=== PATIENT | female | born 1970 | race Caucasian/White ===

== ENCOUNTER 2017-07-19 19:38 | Emergency (ER) | payer OTHER ==
--- NOTE | 2017-07-19 21:00 | US ---
EXAMINATION TYPE: US venous doppler duplex LE RT DATE OF EXAM: 07/19/2017 8:48 PM COMPARISON: NONE CLINICAL HISTORY: Pain. Right calf pain SIDE PERFORMED: Right TECHNIQUE: The lower extremity deep venous system is examined utilizing real time linear array sonog anjali with graded compression, doppler sonography and color-flow sonography. VESSELS IMAGED: External Iliac Vein (EIV) Common Femoral Vein Deep Femoral Vein Greater Saphenous Vein * Femoral Vein Popliteal Vein Small Saphenous Vein * Proximal Calf Veins (* superficial vessels) Right Leg: Negative for DVT Grayscale, color doppler, spectral doppler imaging performed of the deep veins of the lower extremities. There is normal flow, compressibility, vascular waveforms. IMPRESSION: No evidence of deep venous tendinosis within the right lower extremity.
[2017-07-19 21:08] VITALS: BP 107/73; PULSE 66; RESP 16; TEMP 98.1
[2017-07-19] MEDS ORDERED: ACET/COD 300 MG/30 MG STARTER PACK 6 TAB BTL PO STA (21:30)
--- NOTE | 2017-07-19 21:30 | ED ---
Extremity Problem HPI - General Chief complaint: Extremity Problem,Nontraumatic Stated complaint: poss DVT Time Seen by Provider: 07/19/17 19:49 Source: patient Mode of arrival: ambulatory Limitations: no limitations - History of Present Illness Initial comments: 47-year-old female patient presents to emergency department today for evaluation of right calf erythema, tenderness, and swelling. Patient was seen at urgent care in [place] today and was diagnosed with cellulitis of the leg however the recommended she come here for rule out DVT. She states that they gave her an IM injection of an antibiotic and sent a prescription for antibiotics over to the pharmacy. Patient states that on Monday she was canoeing, when she got out of the canoe she did hit the inside of her right leg causing a bruise. She denies any open wound. Patient states that when she woke this morning the area of her leg had become red, very tender, and caused her significant pain throughout the day. Patient states that it is more swollen than the left leg. Patient states that she has taken ibuprofen without relief of pain. Patient denies any recent fever, chills, shortness breath, palpitations, chest pain, abdominal pain, nausea, vomiting, diarrhea, constipation, back pain, numbness, tingling, weakness, hematuria, headache, visual changes, or any other complaints. - Related Data Home Medications Medication Instructions Recorded Confirmed ALPRAZolam [Xanax] 0.5 mg PO TID PRN 07/19/17 07/19/17 Ibuprofen [Motrin] 800 mg PO TID PRN 07/19/17 07/19/17 Previous Rx's Medication Instructions Recorded Acetaminophen-Codeine 300-30mg 1 tab PO Q6H PRN #15 tablet 07/19/17 [Tylenol #3] Allergies Allergy/AdvReac Type Severity Reaction Status Date / Time Penicillins Allergy Unknown Verified 07/19/17 20:46 Childhood Review of Systems ROS Statement: Those systems with pertinent positive or pertinent negative responses have been documented in the HPI. ROS Other: All systems not noted in ROS Statement are negative. Past Medical History Past Medical History: Cancer Additional Past Medical History / Comment(s): melanoma cancer History of Any Multi-Drug Resistant Organisms: None Reported Past Surgical History: Hysterectomy Additional Past Surgical History / Comment(s): skin Past Psychological History: Anxiety Smoking Status: Current every day smoker Past Alcohol Use History: None Reported Past Drug Use History: None Reported General Exam Limitations: no limitations General appearance: alert, in no apparent distress Respiratory exam: Present: normal lung sounds bilaterally. Absent: respiratory distress, wheezes, rales, rhonchi, stridor Cardiovascular Exam: Present: regular rate, normal rhythm, normal heart sounds. Absent: systolic murmur, diastolic murmur, rubs, gallop, clicks Extremities exam: Present: full ROM, normal capillary refill, other (Right medial calf exhibits an area of erythema, warmth, central area of ecchymosis. Mild nonpitting edema. Skin otherwise is pink, warm, and dry. Cap refill less than 3 seconds. Post tibial and pedal pulses intact and equal bilaterally.). Absent: normal inspection, tenderness, pedal edema, joint swelling, calf tenderness Neurological exam: Present: alert, oriented X3, CN II-XII intact Psychiatric exam: Present: normal affect, normal mood Skin exam: Present: warm, dry, intact, normal color. Absent: rash Course Vital Signs 07/19/17 07/19/17 19:41 21:07 Temperature 97.9 F 98.1 F Pulse Rate 69 66 Respiratory 18 16 Rate Blood Pressure 134/81 107/73 O2 Sat by Pulse 98 98 Oximetry Medical Decision Making - Medical Decision Making 47 year-old female patient presented to emergency department today for rule out DVT to the right lower extremity. Patient was seen at urgent care earlier in the day and diagnosed with a right leg cellulitis however they were concerned she may also have a DVT. Ultrasound Doppler of the right lower eduction was performed and showed no acute DVT. Patient will be discharged home with a prescription for pain medication. She will be instructed to complete the antibiotic prescription sent to the pharmacy by the urgent care. Patient instructed to follow up with her primary care physician for recheck in 1-2 days. Patient instructed to return here immediately for any new, worsening, or concerning symptoms. Patient verbalizes understanding and agrees with this plan. - Radiology Data Radiology results: report reviewed, image reviewed US venous Doppler duplex of the right lower extremity is negative for DVT grayscale, color Doppler, spectral Doppler imaging performed of the deep pain to the lower extremities. There is normal flow, compressibility, and vascular waveforms. Impression by Dr. Ojeda shows no evidence of deep venous tendinosis within the right lower extremity. Disposition Clinical Impression: Cellulitis of right leg Disposition: HOME SELF-CARE Condition: Good Instructions: Cellulitis (ED) Additional Instructions: Complete antibiotic prescription in full. Cool compresses to right leg. Keep leg elevated. Follow up with primary care physician for recheck in 1-2 days. Return immediately for any new, worsening, or concerning symptoms. Prescriptions: Acetaminophen-Codeine 300-30mg [Tylenol #3] 1 tab PO Q6H PRN #15 tablet PRN Reason: Pain Referrals: Tre Sosa DO [Primary Care Provider] - 1-2 days Time of Disposition: 21:30
== END 2017-07-19 21:54 | disposition home or self-care (01) ==
LOC: EC 19:38
DX: L03.115 Cellulitis of right lower limb (principal); F17.200 Nicotine dependence, unspecified, uncomplicated; Z88.0 Allergy status to penicillin
CPT/HCPCS: 99283

== ENCOUNTER 2018-01-10 20:38 | Emergency (ER) | payer OTHER ==
[2018-01-10 20:48] VITALS: RESP 18; TEMP 97.1
[2018-01-10 22:02] VITALS: PULSE 75
[2018-01-10] MEDS ORDERED: SODIUM CHLORIDE 0.9% 500 ML IV STA (22:22)
[2018-01-10] MEDS ORDERED: SODIUM CHLORIDE 0.9% 1,000 ML IV STA (22:22)
--- NOTE | 2018-01-10 22:28 | ED ---
General Adult HPI - General Chief complaint: Syncope Stated complaint: Unresponsive Time Seen by Provider: 01/10/18 22:15 Source: patient, family, EMS, RN notes reviewed Mode of arrival: EMS Limitations: no limitations - History of Present Illness Initial comments: Patient is a pleasant 47-year-old female presenting to the emergency department following an unresponsive episode. Episode occurred prior to arrival. Patient was found by family at home unresponsive. Patient appeared to have stopped breathing on a few occasions. Family did attempt CPR. When EMS arrived they did find a pulse. Patient had agonal respirations and was provided bag mask respirations. Patient then became arousable. Patient states she feels fine at this time denies any complaints. Patient has been depressed and has not ate much in the past 6 days. Patient has been drinking fluids. Patient does not normally drink much alcohol however today he did have 2 mixed drinks and 3 shots of tequila. Patient does not feel intoxicated at this time. Patient took her usual Xanax dose however no more than this. Patient denies suicidal thoughts. Patient denies this being a suicide attempt. - Related Data Home Medications Medication Instructions Recorded Confirmed ALPRAZolam [Xanax] 0.5 mg PO BID PRN 07/19/17 01/10/18 Ibuprofen [Motrin] 800 mg PO TID PRN 07/19/17 01/10/18 Venlafaxine HCl ER [Effexor Xr] 37.5 mg PO DAILY 01/10/18 01/10/18 Allergies Allergy/AdvReac Type Severity Reaction Status Date / Time Penicillins Allergy Unknown Verified 01/10/18 22:19 Childhood sulfamethoxazole Allergy Unknown Verified 01/10/18 22:19 [From Bactrim] trimethoprim [From Bactrim] Allergy Unknown Verified 01/10/18 22:19 Review of Systems ROS Statement: Those systems with pertinent positive or pertinent negative responses have been documented in the HPI. ROS Other: All systems not noted in ROS Statement are negative. Constitutional: Denies: fever Eyes: Denies: eye pain ENT: Denies: ear pain Respiratory: Denies: cough Cardiovascular: Reports: chest pain (Patient states chest discomfort now and believes it was from family pushing on her chest) Endocrine: Denies: fatigue Gastrointestinal: Denies: abdominal pain Genitourinary: Denies: dysuria Musculoskeletal: Denies: back pain Skin: Denies: rash Neurological: Denies: weakness Psychiatric: Reports: depression. Denies: suicidal thoughts Past Medical History Past Medical History: Cancer Additional Past Medical History / Comment(s): melanoma cancer History of Any Multi-Drug Resistant Organisms: None Reported Past Surgical History: Hysterectomy Additional Past Surgical History / Comment(s): skin Past Psychological History: Anxiety Smoking Status: Current every day smoker Past Alcohol Use History: Rare Past Drug Use History: Marijuana General Exam Limitations: no limitations General appearance: alert, in no apparent distress Head exam: Present: atraumatic Eye exam: Present: normal appearance, PERRL, EOMI. Absent: nystagmus ENT exam: Present: normal oropharynx Neck exam: Present: normal inspection Respiratory exam: Present: normal lung sounds bilaterally, chest wall tenderness Cardiovascular Exam: Present: regular rate, normal rhythm Expanded Peripheral pulses: 2+: Radial (R), Radial (L), Posterior Tibialis (R), Posterior Tibialis (L) GI/Abdominal exam: Present: soft. Absent: distended, tenderness Extremities exam: Present: normal inspection. Absent: pedal edema, calf tenderness Neurological exam: Present: alert, oriented X3, CN II-XII intact. Absent: motor sensory deficit Psychiatric exam: Present: normal affect, normal mood Skin exam: Present: normal color Course Vital Signs 01/10/18 01/10/18 01/10/18 20:41 22:01 23:17 Temperature 97.1 F L Pulse Rate 66 75 Respiratory 18 18 18 Rate Blood Pressure 116/76 133/63 108/53 O2 Sat by Pulse 97 95 Oximetry EKG Findings - EKG Comments: EKG Findings:: Normal sinus rhythm 67. MI 184. QRS 88. QT 418. QTC 441. Normal axis. Normal QRS. No acute ST change. Medical Decision Making - Medical Decision Making Patient reevaluated and resting comfortably in bed. Patient is alert and appropriate. Patient and family is updated on results. Patient is advised admission for further evaluation regarding this episode. Patient is made aware that it is felt to be rare for alcohol intoxication to cause respiratory arrest , especially at her alcohol level. Despite this patient refuses admission and will leave AGAINST MEDICAL ADVICE. - Lab Data Result diagrams: 01/10/18 20:50 01/10/18 20:50 Lab Results 02/14/18 02/14/18 02/14/18 Range/Units 20:50 20:50 20:50 WBC 14.4 H (3.8-10.6) k/uL RBC 4.83 (3.80-5.40) m/uL Hgb 14.6 (11.4-16.0) gm/dL Hct 46.9 H (34.0-46.0) % MCV 97.2 (80.0-100.0) fL MCH 30.3 (25.0-35.0) pg MCHC 31.2 (31.0-37.0) g/dL RDW 12.4 (11.5-15.5) % Plt Count 341 (150-450) k/uL Neutrophils % 75 % Lymphocytes % 15 % Monocytes % 7 % Eosinophils % 2 % Basophils % 0 % Neutrophils # 10.8 H (1.3-7.7) k/uL Lymphocytes # 2.1 (1.0-4.8) k/uL Monocytes # 1.0 (0-1.0) k/uL Eosinophils # 0.2 (0-0.7) k/uL Basophils # 0.1 (0-0.2) k/uL PT (9.0-12.0) sec INR (<1.2) APTT (22.0-30.0) sec D-Dimer (<0.60) mg/L FEU Sodium 143 (137-145) mmol/L Potassium 4.0 (3.5-5.1) mmol/L Chloride 100 (98-107) mmol/L Carbon Dioxide 26 (22-30) mmol/L Anion Gap 17 mmol/L BUN 9 (7-17) mg/dL Creatinine 0.70 (0.52-1.04) mg/dL Est GFR (MDRD) Af Amer >60 (>60 ml/min/1.73 sqM) Est GFR (MDRD) Non-Af >60 (>60 ml/min/1.73 sqM) Glucose 97 (74-99) mg/dL Calcium 9.4 (8.4-10.2) mg/dL Magnesium 2.1 (1.6-2.3) mg/dL Total Bilirubin 0.6 (0.2-1.3) mg/dL AST 30 (14-36) U/L ALT 21 (9-52) U/L Alkaline Phosphatase 80 (38-126) U/L Total Creatine Kinase 91 (30-135) U/L CK-MB (CK-2) 1.0 (0.0-2.4) ng/mL CK-MB (CK-2) Rel Index 1.1 Troponin I <0.012 (0.000-0.034) ng/mL Total Protein 8.0 (6.3-8.2) g/dL Albumin 4.7 (3.5-5.0) g/dL Salicylates <1.0 mg/dL Acetaminophen <10.0 ug/mL Serum Alcohol 142 mg/dL 01/10/18 Range/Units 20:50 WBC (3.8-10.6) k/uL RBC (3.80-5.40) m/uL Hgb (11.4-16.0) gm/dL Hct (34.0-46.0) % MCV (80.0-100.0) fL MCH (25.0-35.0) pg MCHC (31.0-37.0) g/dL RDW (11.5-15.5) % Plt Count (150-450) k/uL Neutrophils % % Lymphocytes % % Monocytes % % Eosinophils % % Basophils % % Neutrophils # (1.3-7.7) k/uL Lymphocytes # (1.0-4.8) k/uL Monocytes # (0-1.0) k/uL Eosinophils # (0-0.7) k/uL Basophils # (0-0.2) k/uL PT 10.4 (9.0-12.0) sec INR 1.1 (<1.2) APTT 25.5 (22.0-30.0) sec D-Dimer 0.20 (<0.60) mg/L FEU Sodium (137-145) mmol/L Potassium (3.5-5.1) mmol/L Chloride (98-107) mmol/L Carbon Dioxide (22-30) mmol/L Anion Gap mmol/L BUN (7-17) mg/dL Creatinine (0.52-1.04) mg/dL Est GFR (MDRD) Af Amer (>60 ml/min/1.73 sqM) Est GFR (MDRD) Non-Af (>60 ml/min/1.73 sqM) Glucose (74-99) mg/dL Calcium (8.4-10.2) mg/dL Magnesium (1.6-2.3) mg/dL Total Bilirubin (0.2-1.3) mg/dL AST (14-36) U/L ALT (9-52) U/L Alkaline Phosphatase (38-126) U/L Total Creatine Kinase (30-135) U/L CK-MB (CK-2) (0.0-2.4) ng/mL CK-MB (CK-2) Rel Index Troponin I (0.000-0.034) ng/mL Total Protein (6.3-8.2) g/dL Albumin (3.5-5.0) g/dL Salicylates mg/dL Acetaminophen ug/mL Serum Alcohol mg/dL - Radiology Data Radiology results: report reviewed (Computed tomography scan shows no acute process.), image reviewed (Chest x-ray shows no acute process.) Disposition Clinical Impression: Alcoholic intoxication, Unresponsive episode, Respiratory arrest Disposition: Left Against Medical Advice Instructions: Alcohol Intoxication (ED), Depression (ED) Additional Instructions: Please follow-up to primary care physician in the next day or 2 for recheck. Please also consider follow-up with counselor. Discontinue alcohol use. Return for increased depression, suicidal thoughts, chest pain, unresponsiveness , difficulty breathing, weakness or confusion, worsening symptoms or other concerns. Referrals: Tre Sosa DO [Primary Care Provider] - 1-2 days Conner Garcia DO [Medical Doctor] - 1-2 days Time of Disposition: 23:52
[2018-01-10 22:36] LABS: Basophils # (A) 0.1 k/uL (0-0.2); Basophils % (A) 0 %; Eosinophils # (A) 0.2 k/uL (0-0.7); Eosinophils % (A) 2 %; HCT 46.9 % (34.0-46.0); HGB 14.6 gm/dL (11.4-16.0); Lymphocytes # (A) 2.1 k/uL (1.0-4.8); Lymphocytes % (A) 15 %; MCH 30.3 pg (25.0-35.0); MCHC 31.2 g/dL (31.0-37.0); MCV 97.2 fL (80.0-100.0); Mean Platelet Volume 7.8; Monocytes % (A) 7 %; Neutrophils # (A) 10.8 k/uL (1.3-7.7); Neutrophils % (A) 75 %; Platelet Count 341 k/uL (150-450); RBC 4.83 m/uL (3.80-5.40); RDW 12.4 % (11.5-15.5); WBC 14.4 k/uL (3.8-10.6)
[2018-01-10 22:49] LABS: D-Dimer 0.2 mg/L FEU (<0.60); INR 1.1 (<1.2); Partial Thromboplastin Time 25.5 sec (22.0-30.0); Prothrombin Time 10.4 sec (9.0-12.0)
--- NOTE | 2018-01-10 22:57 | CT ---
EXAMINATION TYPE: CT brain wo con DATE OF EXAM: 01/10/2018 COMPARISON: NONE HISTORY: Syncopal episode with possible injury CT DLP: 1072.3 mGycm. Automated Exposure Control for Dose Reduction was Utilized. TECHNIQUE: CT scan of the head is performed without contrast. FINDINGS: Ventricles of normal size. There is no mass effect nor midline shift. There is no sign of intracranial hemorrhage. The calvarium is intact. CONCLUSION: Negative CT scan of the brain.
[2018-01-10 22:58] LABS: ALT 21 U/L (9-52); AST 30 U/L (14-36); Acetaminophen <10.0 ug/mL; Albumin 4.7 g/dL (3.5-5.0); Alkaline Phosphatase 80 U/L (38-126); Anion Gap 17 mmol/L; Blood Urea Nitrogen 9 mg/dL (7-17); Calcium 9.4 mg/dL (8.4-10.2); Carbon Dioxide 26 mmol/L (22-30); Chloride 100 mmol/L (98-107); Glucose 97 mg/dL (74-99); Magnesium 2.1 mg/dL (1.6-2.3); Salicylate <1.0 mg/dL; Sodium 143 mmol/L (137-145); Total Bilirubin 0.6 mg/dL (0.2-1.3)
--- NOTE | 2018-01-10 22:58 | XR ---
EXAMINATION TYPE: XR chest 2V DATE OF EXAM: 01/10/2018 COMPARISON: NONE HISTORY: Syncope TECHNIQUE: Frontal and lateral views of the chest are obtained. FINDINGS: There is no heart failure nor confluent pneumonic infiltrate. Costophrenic angles are lashonda r. There are no hilar masses. Bony thorax is intact. IMPRESSION: Normal chest
[2018-01-10 23:02] LABS: Alcohol 142 mg/dL
[2018-01-10 23:03] LABS: Creatine Kinase 91 U/L (30-135)
[2018-01-10 23:15] LABS: Troponin I <0.012 ng/mL (0.000-0.034)
[2018-01-10 23:18] VITALS: BP 108/53
== END 2018-01-11 00:21 | disposition left against medical advice (07) ==
LOC: EC 20:38
DX: F10.129 Alcohol abuse with intoxication, unspecified (principal); R09.2 Respiratory arrest; R40.20 Unspecified coma; F41.9 Anxiety disorder, unspecified; F17.200 Nicotine dependence, unspecified, uncomplicated; Z85.820 Personal history of malignant melanoma of skin; Z79.899 Other long term (current) drug therapy; Z88.0 Allergy status to penicillin; Z88.2 Allergy status to sulfonamides
CPT/HCPCS: 36415; 70450; 71046; 80053; 80320; 82550; 82553; 83520; 83735; 84484; 85025; 85379; 85610; 85730; 93005; 96360; 99285

== ENCOUNTER → 2018-11-29 | Outpatient (CLI) | payer OTHER ==
--- NOTE | 2018-11-30 10:15 | MM ---
Reason for exam: screening (asymptomatic). Last mammogram was performed 10 years and 2 months ago. History: Patient has history of other cancer at age 25. Physical Findings: A clinical breast exam by your physician is recommended on an annual basis and results should be correlated with mammographic findings. MG 3D Screening Mammo W/Cad Bilateral CC and MLO view(s) were taken. Prior study comparison: August 16, 2016, mammogram, performed at [facility]. July 27, 2016, mammogram, performed at [facility]. September 18, 2008, bilateral digital screening mammogram. There are scattered fibroglandular densities. There is no discrete abnormality. No significant changes when compared with prior studies. ASSESSMENT: Negative, BI-RAD 1 RECOMMENDATION: Routine screening mammogram of both breasts in 1 year.
== END | disposition home or self-care (01) ==
LOC: RADMAMWWP 16:18
PROVIDERS: ATTEND Family Medicine
DX: Z12.31 Encounter for screening mammogram for malignant neoplasm of breast (principal)
CPT/HCPCS: 77063; 77067

== ENCOUNTER → 2019-06-18 | Outpatient (CLI) | payer OTHER ==
[2019-06-18 12:25] LABS: Appearance,Urine Cloudy (Clear); Bacteria,Urine Occasional /hpf; Bilirubin,Urine Negative (Negative); Blood,Urine Trace (Negative); Color,Urine Yellow; Glucose,Urine (UA) Negative (Negative); Ketones,Urine 2+ (Negative); Leukocyte Esterase,Urine Trace (Negative); Mucus,Urine Many /hpf; Nitrite,Urine Negative (Negative); PH, Urine 5.5 (5.0-8.0); Protein,Urine Trace (Negative); RBC,Urine 3 /hpf (0-5); Specific Gravity,Urine 1.028 (1.001-1.035); Squamous Epithelial Cell,Urine 21 /hpf (0-4)
[2019-06-18 12:34] LABS: Basophils # (A) 0.1 k/uL (0-0.2); Basophils % (A) 1 %; Eosinophils # (A) 0.1 k/uL (0-0.7); Eosinophils % (A) 0 %; HGB 15.8 gm/dL (11.4-16.0); Lymphocytes # (A) 1.7 k/uL (1.0-4.8); Lymphocytes % (A) 11 %; MCH 31.5 pg (25.0-35.0); MCHC 32.9 g/dL (31.0-37.0); MCV 95.5 fL (80.0-100.0); Mean Platelet Volume 7.3; Monocytes # (A) 0.7 k/uL (0-1.0); Monocytes % (A) 4 %; Neutrophils # (A) 13.6 k/uL (1.3-7.7); Neutrophils % (A) 83 %; Platelet Count 378 k/uL (150-450); RBC 5.03 m/uL (3.80-5.40); RDW 13.1 % (11.5-15.5); WBC 16.4 k/uL (3.8-10.6)
[2019-06-18 15:36] LABS: Vitamin D 25 Hydroxy 26.7 ng/mL (30.0-100.0)
[2019-06-18 16:05] LABS: African American GFR (CKD) 85.8 (60.0-200.0); Albumin 5.1 g/dL (3.80-4.90); Albumin/Globulin Ratio 2.32 (1.60-3.17); Anion Gap 10.3 mmol/L (4.00-12.00); BUN/Creat Ratio 18.89 Ratio (12.00-20.00); Calcium 10.4 mg/dL (8.7-10.3); Carbon Dioxide 27.7 mmol/L (21.6-31.8); Globulin 2.2 g/dL (1.6-3.3); Potassium 4.9 mmol/L (3.5-5.5); Total Protein 7.3 g/dL (6.2-8.2)
== END | disposition home or self-care (01) ==
LOC: LABWHC1 11:41
PROVIDERS: ATTEND Family Medicine
DX: R53.82 Chronic fatigue, unspecified (principal)
CPT/HCPCS: 36415; 80053; 81001; 82306; 82607; 84439; 84443; 85025

== ENCOUNTER → 2019-07-12 | Outpatient (CLI) | payer OTHER ==
[2019-07-12 17:13] LABS: Basophils # (A) 0.1 k/uL (0-0.2); Basophils % (A) 1 %; Eosinophils # (A) 0.2 k/uL (0-0.7); Eosinophils % (A) 2 %; HCT 44.4 % (34.0-46.0); HGB 14.4 gm/dL (11.4-16.0); Lymphocytes # (A) 2.2 k/uL (1.0-4.8); Lymphocytes % (A) 21 %; MCHC 32.3 g/dL (31.0-37.0); MCV 95.9 fL (80.0-100.0); Mean Platelet Volume 7.1; Monocytes # (A) 0.9 k/uL (0-1.0); Monocytes % (A) 9 %; Neutrophils # (A) 6.9 k/uL (1.3-7.7); Neutrophils % (A) 66 %; Platelet Count 312 k/uL (150-450); RBC 4.63 m/uL (3.80-5.40); WBC 10.5 k/uL (3.8-10.6)
[2019-07-12 23:10] LABS: Albumin 4.6 g/dL (3.80-4.90); Calcium 9.8 mg/dL (8.7-10.3)
== END | disposition home or self-care (01) ==
LOC: LABWHC1 16:33 → EDSTATUS 16:50
PROVIDERS: ATTEND Family Medicine
DX: R89.9 Unspecified abnormal finding in specimens from other organs, systems and tissues (principal); R82.90 Unspecified abnormal findings in urine
CPT/HCPCS: 36415; 82040; 82310; 85025; 87086

== ENCOUNTER 2020-10-31 15:32 | Emergency (ER) | payer OTHER ==
[2020-10-31 15:47] VITALS: PULSE 72; RESP 16; TEMP 98.6
[2020-10-31] MEDS ORDERED: IBUPROFEN 600 MG TAB PO STA (16:01)
[2020-10-31] MEDS ORDERED: ACETAMINOPHEN TAB 500 MG TAB PO STA (16:01)
--- NOTE | 2020-10-31 16:12 | ED ---
Lower Extremity Injury HPI - General Chief Complaint: Extremity Injury, Lower Stated Complaint: foot injury Time Seen by Provider: 10/31/20 15:54 Source: patient Mode of arrival: ambulatory Limitations: no limitations - History of Present Illness Initial Comments: 50-year-old female patient presents to the emergency department today for evaluation of pain to the dorsal aspect of the right foot. Patient states that she was cleaning, went to kick a toy and accidentally kicked a door. Patient states she's had pain and swelling to the area since. States it is very painful to bear weight. Denies numbness or tingling to the foot. Denies previous injury to the foot. Denies taking any medication for pain. Patient denies any headache, neck pain, back pain, chest pain, shortness of breath, dizziness, weakness, abdominal pain, nausea, vomiting, or difficulties with bowel movements or urination. - Related Data Home Medications Medication Instructions Recorded Confirmed ALPRAZolam [Xanax] 0.5 mg PO TID PRN 07/19/17 10/31/20 Ibuprofen [Motrin] 800 mg PO BID PRN 07/19/17 10/31/20 Allergies Allergy/AdvReac Type Severity Reaction Status Date / Time bee venom protein (honey bee) Allergy Anaphylaxis Verified 10/31/20 17:21 Penicillins Allergy Unknown Verified 10/31/20 17:21 Childhood sulfamethoxazole Allergy Unknown Verified 10/31/20 17:21 [From Bactrim] trimethoprim [From Bactrim] Allergy Unknown Verified 10/31/20 17:21 Review of Systems ROS Statement: Those systems with pertinent positive or pertinent negative responses have been documented in the HPI. ROS Other: All systems not noted in ROS Statement are negative. Past Medical History Past Medical History: Cancer Additional Past Medical History / Comment(s): melanoma cancer History of Any Multi-Drug Resistant Organisms: None Reported Past Surgical History: Hysterectomy Additional Past Surgical History / Comment(s): skin Past Psychological History: Anxiety Smoking Status: Current some day smoker Past Alcohol Use History: Rare Past Drug Use History: Marijuana General Exam Limitations: no limitations General appearance: alert, in no apparent distress, other (This is a well- developed, well-nourished adult female patient in no acute distress. Vital signs upon presentation are temperature 98.6F, pulse 72, respirations 16, blood pressure 133/95, pulse ox 98% on room air.) Respiratory exam: Present: normal lung sounds bilaterally. Absent: respiratory distress, wheezes, rales, rhonchi, stridor Cardiovascular Exam: Present: regular rate, normal rhythm, normal heart sounds. Absent: systolic murmur, diastolic murmur, rubs, gallop, clicks Extremities exam: Present: full ROM, normal capillary refill, other (There is soft tissue swelling and ecchymosis noted over the dorsal aspect of the foot over the proximal fourth and fifth metatarsals. Skin is otherwise pink, warm, dry. Cap refills less than 3 seconds. Pedal and posttibial pulses are 2+ and equal bilaterally.). Absent: normal inspection, tenderness, pedal edema, joint swelling, calf tenderness Neurological exam: Present: alert, oriented X3, CN II-XII intact Psychiatric exam: Present: normal affect, normal mood Skin exam: Present: warm, dry, intact, normal color. Absent: rash Course Vital Signs 10/31/20 10/31/20 15:43 18:13 Temperature 98.6 F 98.6 F Pulse Rate 72 72 Respiratory 16 16 Rate Blood Pressure 133/95 134/69 O2 Sat by Pulse 98 96 Oximetry Medical Decision Making - Medical Decision Making 50-year-old female patient presented to the emergency department today for evaluation of right foot pain after accidentally kicking a door. Physical examination did reveal soft tissue swelling, ecchymosis over the dorsal aspect of the foot especially over the third and fourth metatarsals. X-ray was obtained and was negative. Patient was unable to bear weight without significant discomfort so we did perform computed tomography scan of the foot which is also negative. Patient was placed in an Dylon wrap and a post op shoe. She will be discharged to follow-up with orthopedics for further evaluation of her symptoms aren't improved. She is instructed to follow-up with her primary care physician for recheck in 1-2 days. Return parameters were discussed in det ail. She verbalizes understanding and agrees with this plan. - Radiology Data Radiology results: report reviewed, image reviewed X-ray of the right foot was obtained report reviewed in its entirety. Impression by Dr. Hernandez shows negative right foot exam. No fracture seen. CT right foot was obtained. Report was reviewed in its entirety. Impression by Dr. Hernandez shows negative right foot computed tomography scan. No fracture. Disposition Clinical Impression: Contusion of right foot, Right foot injury Disposition: HOME SELF-CARE Condition: Good Instructions (If sedation given, give patient instructions): Foot Contusion (ED ) Additional Instructions: Rest, ice, elevate the foot. Take medication as needed for pain control. I'll with credentialing specialist if symptoms persist. Follow-up with her primary care physician for recheck in 1-2 days. Return to the emergency department immediately for any new, worsening, or concerning symptoms. Is patient prescribed a controlled substance at d/c from ED?: No Referrals: Tre Sosa DO [Primary Care Provider] - 1-2 days Otto Mckenna DO [Doctor of Osteopathic Medicine] - 1-2 days Time of Disposition: 17:45
--- NOTE | 2020-10-31 16:48 | XR ---
EXAMINATION TYPE: XR foot complete RT DATE OF EXAM: 10/31/2020 COMPARISON: NONE HISTORY: Foot pain TECHNIQUE: 3 views FINDINGS: Metatarsals appear intact. I see no fracture nor dislocation. The toes appear intact. IMPRESSION: Negative right foot exam. No fracture seen.
--- NOTE | 2020-10-31 17:43 | CT ---
EXAMINATION TYPE: CT foot RT wo con DATE OF EXAM: 10/31/2020 COMPARISON: None HISTORY: right foot pain and swellling following kicking injury CT DLP: 44.4 mGycm Automated exposure control for dose reduction was used. Images were obtained from the distal tibia to the bottom of the foot with no contrast. The metatarsals are intact. The toes appear intact. I see no bony destructive process. There is no ev idence of a soft tissue mass. Joint spaces are fairly normal. The hindfoot is intact. IMPRESSION: Negative right foot CT scan. No fracture.
[2020-10-31] MEDS ORDERED: ONDANSETRON 4 MG ODT STARTER PACK 2 TAB BTL PO STA (17:59)
[2020-10-31] MEDS ORDERED: ACET/COD 300 MG/30 MG STARTER PACK 6 TAB BTL PO STA (17:59)
[2020-10-31 18:16] VITALS: BP 134/69
== END 2020-10-31 18:18 | disposition home or self-care (01) ==
LOC: EC 15:32
DX: S90.31XA Contusion of right foot, initial encounter (principal); F17.200 Nicotine dependence, unspecified, uncomplicated; Z88.0 Allergy status to penicillin; Z88.1 Allergy status to other antibiotic agents; Z88.2 Allergy status to sulfonamides; Z91.030 Bee allergy status; Z85.820 Personal history of malignant melanoma of skin; W22.8XXA Striking against or struck by other objects, initial encounter
CPT/HCPCS: 73630; 73700; 99284; S0119

== ENCOUNTER → 2022-01-03 | Outpatient (CLI) | payer MEDICARE ==
[2022-01-03 14:35] LABS: HCT 41.8 % (37.2-46.3); HGB 13.3 g/dL (12.0-15.0); MCH 30.6 pg (27.0-32.0); MCHC 31.8 g/dL (32.0-37.0); MCV 96.3 fL (80.0-97.0); Mean Platelet Volume 10.5 fL (9.5-12.2); NRBC Per 100 WBC 0 /100 WBCS (0.0-0.0); Platelet Count 297 X 10*3/uL (140-440); RBC 4.34 X 10*6/uL (4.10-5.20); RDW 13.6 % (11.5-14.5); WBC 8.75 X 10*3/uL (4.50-10.00)
[2022-01-03 15:01] LABS: ALT 19 U/L (8-44); AST 17 U/L (13-35); African American GFR (CKD) 115.3 (60.0-200.0); Albumin 4.6 g/dL (3.8-4.9); Albumin/Globulin Ratio 2.09 (1.60-3.17); Alkaline Phosphatase 62 U/L (41-126); BUN/Creat Ratio 18.29 Ratio (12.00-20.00); Blood Urea Nitrogen 12.6 mg/dL (9.0-27.0); Calcium 9.4 mg/dL (8.7-10.3); Carbon Dioxide 25.2 mmol/L (20.0-27.5); Chloride 106 mmol/L (96-109); Globulin 2.2 g/dL (1.6-3.3); Glucose 101 mg/dL (70-110); Non-African American GFR(CKD) 99.4 (60.0-200.0); Potassium 4.5 mmol/L (3.5-5.5); Sodium 143 mmol/L (135-145); Total Protein 6.7 g/dL (6.2-8.2)
[2022-01-03 22:10] LABS: Valproic Acid (Depakene) <2.8 ug/mL (50.0-100.0)
== END | disposition home or self-care (01) ==
LOC: LABWHC1 09:40
PROVIDERS: ATTEND Psychiatry & Neurology Psychiatry
DX: Z51.81 Encounter for therapeutic drug level monitoring (principal)
CPT/HCPCS: 36415; 80053; 80164; 85027

== ENCOUNTER 2022-05-12 15:39 | Emergency (ER) | payer MEDICARE ==
[2022-05-12 16:51] VITALS: BP 108/70; PULSE 68; RESP 18; TEMP 98
--- NOTE | 2022-05-12 18:29 | XR ---
RESULT: HISTORY: injury due to heavy sign TECHNIQUE: 2 views of the right tibia and fibula. 3 views of the right ankle. 3 views of the right foot. COMPARISON: None. FINDINGS: There is no acute fracture or dislocation. The visualized joint spaces are preserved. IMPRESSION: No acute osseous abnormality of the right tibia, fibula, ankle or foot.
--- NOTE | 2022-05-12 18:43 | ED ---
Lower Extremity Injury HPI - General Chief Complaint: Extremity Injury, Lower Stated Complaint: Rt Foot Injury Time Seen by Provider: 05/12/22 17:25 Source: patient Mode of arrival: wheelchair Limitations: no limitations - History of Present Illness Initial Comments: Patient is a 52-year-old female who presents for evaluation of right lower extremity pain. Patient states she was leaving [facility] building today when a heavy sign landed on her right foot. Patient endorses pain on the top of her foot. She also has mild ankle and lower leg pain. Patient states she is able to walk without instability however does endorse pain in the top of her foot with walking. States she took ibuprofen before arrival which controlled her pain. No other concerns. - Related Data Home Medications Medication Instructions Recorded Confirmed ALPRAZolam [Xanax] 0.5 mg PO TID PRN 07/19/17 10/31/20 Ibuprofen [Motrin] 800 mg PO BID PRN 07/19/17 10/31/20 Allergies Allergy/AdvReac Type Severity Reaction Status Date / Time bee venom protein (honey bee) Allergy Anaphylaxis Verified 05/12/22 16:51 Penicillins Allergy Unknown Verified 05/12/22 16:51 Childhood sulfamethoxazole Allergy Unknown Verified 05/12/22 16:51 [From Bactrim] trimethoprim [From Bactrim] Allergy Unknown Verified 05/12/22 16:51 Review of Systems ROS Statement: Those systems with pertinent positive or pertinent negative responses have been documented in the HPI. ROS Other: All systems not noted in ROS Statement are negative. Past Medical History Past Medical History: Cancer Additional Past Medical History / Comment(s): melanoma cancer History of Any Multi-Drug Resistant Organisms: None Reported Past Surgical History: Hysterectomy Additional Past Surgical History / Comment(s): skin Past Psychological History: Anxiety Smoking Status: Current some day smoker Past Alcohol Use History: Rare Past Drug Use History: Marijuana General Exam Limitations: no limitations General appearance: alert, in no apparent distress Head exam: Present: atraumatic, normocephalic, normal inspection Eye exam: Present: normal appearance, PERRL, EOMI. Absent: scleral icterus, conjunctival injection, periorbital swelling Respiratory exam: Present: normal lung sounds bilaterally. Absent: respiratory distress, wheezes, rales, rhonchi, stridor Cardiovascular Exam: Present: regular rate, normal rhythm, normal heart sounds. Absent: systolic murmur, diastolic murmur, rubs, gallop, clicks GI/Abdominal exam: Present: soft, normal bowel sounds. Absent: distended, tenderness, guarding, rebound, rigid Extremities exam: Present: other (Swelling on top of right foot with tenderness to palpation) Neurological exam: Present: alert, oriented X3, CN II-XII intact Psychiatric exam: Present: normal affect, normal mood Skin exam: Present: warm, dry, intact, normal color. Absent: rash Course Vital Signs 05/12/22 16:48 Temperature 98.0 F Pulse Rate 68 Respiratory 18 Rate Blood Pressure 108/70 O2 Sat by Pulse 98 Oximetry Medical Decision Making - Medical Decision Making This is a 52-year-old female who presents for evaluation of right lower extremity injury. Thorough history and examination were performed. There is swelling on the top of the right foot. No erythema, ecchymosis, or obvious deformity is noted of the right lower leg, right ankle, and right foot. Neurovascularly intact. Full range of motion. Patient looks well. Pain is controlled with ibuprofen patient took before arrival. Right fibular area, right ankle, and right foot x-ray are negative for acute process. Results discussed with patient. RICE education provided in detail. The foot was wrapped in Dylon bandage for comfort and put in a boot. Patient does not have a primary care provider. I referred to orthopedic s pecialist and she is instructed to schedule an appointment in 1-2 weeks if symptoms do not improve. She verbalizes understanding and is agreeable to this plan. Dr. Bianchi is my attending. Disposition Clinical Impression: Right foot injury, Right foot pain, Right ankle pain, Right leg pain Disposition: HOME SELF-CARE Condition: Good Instructions (If sedation given, give patient instructions): Foot Contusion (ED) Additional Instructions: Rest, ice, and elevate the right foot as much as possible. If symptoms continue after 48 hours you may benefit from applying warm compress. You continue to use dylon wrapping for comfort if desired. Follow-up with orthopedic specialisr in one to 2 weeks if symptoms do not improve. Return to the emergency department if you experience new, concerning, or worsening symptoms. Is patient prescribed a controlled substance at d/c from ED?: No Referrals: None,Stated [Primary Care Provider] - 1-2 days Montana Robledo PAC [PHYSICIAN MIXING MACHINE ATTENDANT] - 1-2 days Time of Disposition: 18:43
== END 2022-05-12 19:11 | disposition home or self-care (01) ==
LOC: EC 15:39
DX: S99.921A Unspecified injury of right foot, initial encounter (principal); F17.200 Nicotine dependence, unspecified, uncomplicated; Z88.2 Allergy status to sulfonamides; Z88.8 Allergy status to other drugs, medicaments and biological substances; Z91.030 Bee allergy status; Z88.0 Allergy status to penicillin; W13.9XXA Fall from, out of or through building, not otherwise specified, initial encounter

== ENCOUNTER → 2022-10-26 | Outpatient (CLI) | payer MEDICARE, OTHER ==
--- NOTE | 2022-10-26 12:46 | MM ---
Reason for Exam: Screening (asymptomatic). Last mammogram was performed 3 year(s) and 10 month(s) ago. Patient History: Menarche at age 10. First Full-Term at age 20. Hysterectomy at age 32. Other cancer, age 25. Risk Values: Danita 5 year model risk: 1.0%. NCI Lifetime model risk: 7.5%. Prior Study Comparison: 07/27/2016 Screening Mammogram, [facility]. 08/16/2016 Screening Mammogram, [facility]. 11/29/2018 Bilateral Screening Mammogram, [facility]. Tissue Density: The breast tissue is heterogeneously dense. This may lower the sensitivity of mammography. Findings: Analyzed By CAD. There is no suspicious group of microcalcifications or new suspicious mass in either breast. Overall Assessment: Negative, BI-RAD 1 Management: Screening Mammogram of both breasts in 1 year. A clinical breast exam by your physician is recommended on an annual basis and results should be correlated with mammographic findings. Electronically signed and approved by: Crispin Duenas M.D. Radiologis
== END | disposition home or self-care (01) ==
LOC: RADMAMWWP 08:29
PROVIDERS: ATTEND Family Medicine
DX: Z12.31 Encounter for screening mammogram for malignant neoplasm of breast (principal)
CPT/HCPCS: 77063; 77067

== ENCOUNTER → 2022-12-07 | Outpatient (CLI) | payer MEDICARE, OTHER ==
--- NOTE | 2022-12-07 16:23 | CT ---
EXAMINATION TYPE: CT abdomen pelvis wo con DATE OF EXAM: 12/07/2022 COMPARISON: None INDICATION: HEMATURIA DLP: 324.3 mGycm, Automated exposure control for dose reduction was used. CONTRAST: 0 mL of Isovue 300. Study performed without Oral Contrast TECHNIQUE: Axial images were obtained from above the diaphragm to the pubic rami in the axial plane a t 5 mm thick sections. Reconstructed images are reviewed on the computer in the coronal plane. FINDINGS: Limited CT sections are obtained the lung bases. The lung bases are clear. CT ABDOMEN: Liver: Normal Spleen: Normal Pancreas: Normal Adrenal glands: The adrenal glands are normal. Gallbladder: Normal Kidneys: No masses are evident. No hydronephrosis is present. No cysts are present. Aorta: Normal Inferior vena cava: Normal. CT PELVIS: Loops of bowel within the abdomen and pelvis are normal. The study is without neural contrast street iting bowel evaluation. Appendix: There is a prior appendectomy. Urinary bladder: Normal. Genitourinary structures: Uterus and ovaries are not identified. Osseous structures: No suspicious lytic or sclerotic lesions. IMPRESSIONS: 1. No suspicious CT abnormality to account for hematuria
== END | disposition home or self-care (01) ==
LOC: RADCTMAIN 14:28
PROVIDERS: ATTEND Family Medicine
DX: R31.9 Hematuria, unspecified (principal)
CPT/HCPCS: 74176

== ENCOUNTER 2022-12-13 12:56 | Emergency (ER) | payer MEDICARE, OTHER ==
[2022-12-13] MEDS ORDERED: SODIUM CHLORIDE 0.9% 1,000 ML IV STA (13:47)
[2022-12-13] MEDS ORDERED: KETOROLAC 15 MG/ML 1 ML VIAL IVP STA ×2 (13:47→15:05)
[2022-12-13] MEDS ORDERED: ONDANSETRON 4 MG/2 ML VIAL IVP STA (13:47)
[2022-12-13 14:18] LABS: Basophils # (A) 0.1 k/uL (0-0.2); Basophils % (A) 1 %; Eosinophils # (A) 0.2 k/uL (0-0.7); Eosinophils % (A) 2 %; HCT 39.8 % (34.0-46.0); Lymphocytes # (A) 1.9 k/uL (1.0-4.8); Lymphocytes % (A) 19 %; MCH 30.3 pg (25.0-35.0); MCHC 32.7 g/dL (31.0-37.0); MCV 92.6 fL (80.0-100.0); Mean Platelet Volume 7.7; Monocytes # (A) 0.5 k/uL (0-1.0); Monocytes % (A) 5 %; Neutrophils # (A) 7.2 k/uL (1.3-7.7); Neutrophils % (A) 72 %; Platelet Count 330 k/uL (150-450); RDW 12.2 % (11.5-15.5)
[2022-12-13 14:29] LABS: INR 0.9 (<1.2); Partial Thromboplastin Time 25.1 sec (22.0-30.0); Prothrombin Time 9.9 sec (9.0-12.0)
[2022-12-13 14:40] LABS: ALT 23 U/L (4-34); AST 28 U/L (14-36); African American GFR (CKD) >90 (>60 ml/min/1.73 sqM); Albumin 4.4 g/dL (3.5-5.0); Alkaline Phosphatase 74 U/L (38-126); Amylase 53 U/L (30-110); Anion Gap 7 mmol/L; Blood Urea Nitrogen 9 mg/dL (7-17); C Reactive Protein <0.5 mg/dL (<1.0); Calcium 9.4 mg/dL (8.4-10.2); Carbon Dioxide 27 mmol/L (22-30); Chloride 107 mmol/L (98-107); Glucose 96 mg/dL (74-99); Lipase 101 U/L (23-300); Non-African American GFR(CKD) >90 (>60 ml/min/1.73 sqM); Potassium 4.3 mmol/L (3.5-5.1); Sodium 141 mmol/L (137-145); Total Bilirubin 0.6 mg/dL (0.2-1.3); Total Protein 6.9 g/dL (6.3-8.2)
--- NOTE | 2022-12-13 14:42 | CT ---
EXAMINATION TYPE: CT abdomen pelvis w con CT DLP: 779.3 mGycm, Automated exposure control for dose reduction was used. DATE OF EXAM: 12/13/2022 2:34 PM COMPARISON: CT abdomen pelvis most recent from 12/07/2022 . CLINICAL INDICATION:Female, 52 years old with history of Abdominal pain, acute, nonlocalized; abdomin al pain TECHNIQUE: Standard CT of the abdomen and pelvis following the administration of 100 cc of Isovue 3 00 IV contrast material. Coronal and sagittal reformats were performed. FINDINGS: LOWER CHEST: Unremarkable ABDOMEN LIVER: Unremarkable GALLBLADDER AND BILE DUCTS: Unremarkable. PANCREAS: Unremarkable. SPLEEN: Unremarkable. ADRENAL GLANDS: Unremarkable. KIDNEYS AND URETERS: No evidence of hydronephrosis or renal calculus. The kidneys enhance symmetrical ly. PELVIS BLADDER: Unremarkable REPRODUCTIVE: The uterus is surgically absent. ABDOMEN & PELVIS STOMACH AND BOWEL: Stomach and duodenum are unremarkable no focal wall thickening. The appendix is wi thin normal limits. No evidence of bowel obstruction. PERITONEUM: No evidence of pneumoperitoneum or free fluid. VASCULATURE: No evidence of aortic aneurysm. Multiple pelvic phleboliths. MUSCULOSKELETAL: No acute osseous abnormalities LYMPH NODES: No gross evidence for lymphadenopathy. SOFT TISSUE/ABDOMINAL WALL: Unremarkable IMPRESSION: No acute abdominal/pelvic process.
--- NOTE | 2022-12-13 14:46 | ED ---
Abdominal Pain HPI - General Chief Complaint: Abdominal Pain Stated Complaint: abd & back pain, blood in urine Time Seen by Provider: 12/13/22 13:32 Source: patient, RN notes reviewed Mode of arrival: ambulatory Limitations: no limitations - History of Present Illness Initial Comments: This is a 52-year-old female who presents to the emergency department for abdominal pain. States that this has been an ongoing issue for 1-2 weeks. She describes the pain as being in the bilateral mid to lower back, the epigastric region, and the bilateral lower quadrants. She initially had a urinary tract infection with hematuria, and was treated with antibiotics by her primary care provider. The hematuria improved, however she then began to develop flank pain and abdominal pain and she subsequently had a computed tomography scan of the abdomen and pelvis on 12/07. No irregularities were noted, including no kidney stones. States that her symptoms have continued to worsen and she is now having associated nausea and vomiting. Denies any changes in her bowel habits. Her largest concern is that her mother unexpectedly of cancer, and she is worried that this may be the case for her. She was sent over by her primary care provider, Dr. Anderson, for additional testing, such as a computed tomography scan with contrast. Denies any fevers, chills, sore throat, cough, dyspnea, chest pain, palpitations, diarrhea, or headaches. MD Complaint: abdominal pain Onset/Timin -: week(s) Location: diffuse, bilateral flank Associated Symptoms: nausea, vomiting - Related Data Home Medications Medication Instructions Recorded Confirmed ALPRAZolam [Xanax] 0.5 mg PO TID PRN 07/19/17 10/31/20 Ibuprofen [Motrin] 800 mg PO BID PRN 07/19/17 10/31/20 Previous Rx's Medication Instructions Recorded Ondansetron Odt [Zofran Odt] 4 mg PO Q8HR PRN #20 tab 12/13/22 Allergies Allergy/AdvReac Type Severity Reaction Status Date / Time bee venom protein (honey bee) Allergy Anaphylaxis Verified 12/13/22 13:12 Penicillins Allergy Unknown Verified 12/13/22 13:12 Childhood sulfamethoxazole Allergy Unknown Verified 12/13/22 13:12 [From Bactrim] trimethoprim [From Bactrim] Allergy Unknown Verified 12/13/22 13:12 Review of Systems ROS Statement: Those systems with pertinent positive or pertinent negative responses have been documented in the HPI. ROS Other: All systems not noted in ROS Statement are negative. Past Medical History Past Medical History: Cancer Additional Past Medical History / Comment(s): melanoma cancer History of Any Multi-Drug Resistant Organisms: None Reported Past Surgical History: Hysterectomy Additional Past Surgical History / Comment(s): skin Past Psychological History: Anxiety Smoking Status: Current some day smoker Past Alcohol Use History: Rare Past Drug Use History: Marijuana General Exam Limitations: no limitations General appearance: alert, in distress Head exam: Present: atraumatic, normocephalic, normal inspection Respiratory exam: Present: normal lung sounds bilaterally. Absent: respiratory distress, wheezes, rales, rhonchi, stridor Cardiovascular Exam: Present: regular rate, normal rhythm, normal heart sounds. Absent: systolic murmur, diastolic murmur, rubs, gallop, clicks GI/Abdominal exam: Present: soft, tenderness (diffuse), normal bowel sounds. Absent: distended Neurological exam: Present: alert, oriented X3, CN II-XII intact Psychiatric exam: Present: normal affect, normal mood Skin exam: Present: warm, dry, intact, normal color. Absent: rash Course Vital Signs 12/13/22 12/13/22 12/13/22 13:09 14:19 15:05 Temperature 97.8 F Pulse Rate 59 L 56 L 58 L Respiratory 16 16 16 Rate Blood Pressure 121/77 148/68 105/73 O2 Sat by Pulse 97 98 98 Oximetry 12/13/22 16:16 Temperature Pulse Rate 65 Respiratory 16 Rate Blood Pressure 148/94 O2 Sat by Pulse 98 Oximetry Medical Decision Making - Medical Decision Making This is a 52-year-old female who presents to the emergency department for abdominal pain. Was pt. sent in by a medical professional or institution? @ -Yes, Dr. Anderson. Did you speak to anyone other than the patient for history? @ -No Did you review nursing and triage notes? @ -Agree, accurate with regards to the patient's symptoms. Were old charts reviewed? @ -No Differential Diagnosis? @ -Differential Abdominal Pain Women: Appendicitis, Cholecystitis, diverticulosis, ischemic bowel, pancreatitis, hepatitis, UTI, gastroenteritis, AAA, incarcerated hernia, bowel obstruction, constipation, inflammatory bowel, hepatitis, peptic ulcer disease, splenic infarction, perforated viscus, vulvitis, ovarian torsion, PID, kidney stone, placenta abruption, this is not meant to be an all-inclusive list EKG interpreted by me (3pts min.)? @ -Sinus bradycardia, ventricular rate 52 beats per minute, VA interval 194 ms, QRS duration 88 ms, QTC [address] interpreted by me (1pt min.)? @ -Computed tomography scan of the abdomen and pelvis obtained. My interpretation identifies no evidence of any masses, bowel wall thickening, free air, or nephrolithiasis. What testing was considered but not performed? (CT, X-rays, U/S, labs)? Why? @ -None What meds were considered but not given? Why? @ -None Did you discuss the management of the patient with other professionals? @ -No Did you reconcile home meds? @ -No Was smoking cessation discussed for >3mins.? @ -No Was critical care preformed (if so, how long)? @ -No Were there social determinants of health that impacted care today? How? (Homelessness, low income, unemployed, alcoholism, drug addiction, transportation, low edu. Level, literacy, decrease access to med. care, intermediate, rehab)? @ -No Was there de-escalation of care discussed even if they declined? (Discuss DNR or withdrawal of care, Hospice)? @ -No What co-morbidities impacted this encounter? (DM, HTN, Smoking, COPD, CAD, Cancer, CVA, Hep., AIDS, mental health diagnosis, sleep apnea, morbid obesity)? @ -None Was patient admitted / discharged? @ -Discharged. Lab work obtained and found to be nonactionable. Computed tomography scan of the abdomen and pelvis also had no acute findings. I spoke with an individual with Dr. Anderson's office, who advised that no additional testing needed to be done at this time, they were primarily concerned about malignancy due to her strong family history. She was given Toradol and Ofirmev, with some improvement in symptoms. She qualified for Ofirmev due to the associated nausea and inability to keep anything down. States that as long as she does not move, her pain is well-controlled. However, when she tries to get up or move around, the pain then returns. Instructed her to alternate with ibuprofen and Tylenol for pain relief. She was given information for nephrology follow-up per her request. Instructed her to follow-up with her primary care provider tomorrow to discuss the next steps. Advised she discuss a nephrology follow-up with her primary care provider, because at this point we are not finding any specific evidence showing that her kidneys are the cause of her symptoms. Prescription for Zofran provided as well, advised she take this up to every 8 hours as needed for nausea and vomiting. Undiagnosed new problem with uncertain prognosis? @ -Abdominal pain Drug Therapy requiring intensive monitoring for toxicity (Heparin, Nitro, Insulin, Cardizem)? @ -None Were any procedures done? @ -None Diagnosis/symptom? @ -Abdominal pain Acute, or Chronic, or Acute on Chronic? @ -Acute Uncomplicated (without systemic symptoms) or Complicated (systemic symptoms)? @ -Complicated Side effects of treatment? @ -None Exacerbation, Progression, or Severe Exacerbation] @ -Not applicable Poses a threat to life or bodily function? @ -Yes, this is impacting her ability to function due to the severity of her symptoms. Diagnosis/symptom? @ -Flank pain Acute, or Chronic, or Acute on Chronic? @ -Acute Uncomplicated (without systemic symptoms) or Complicated (systemic symptoms)? @ -Complicated Side effects of treatment? @ -None Exacerbation, Progression, or Severe Exacerbation] @ -Not applicable Poses a threat to life or bodily function? @ -Yes, this is impacting her ability to function due to the severity of her symptoms. Return precautions reviewed in depth, the patient is instructed to return to the emergency department with any new, worsening, or concerning symptoms. Patient verbalized understanding. This case was discussed in detail with the attending ED physician, Dr. Powell. Presentation, findings, and treatment plan discussed in detail as well. - Lab Data Result diagrams: 12/13/22 14:00 12/13/22 14:00 Lab Results 12/13/22 12/13/22 12/13/22 Range/Units 14:00 14:00 14:00 WBC 10.0 (3.8-10.6) k/uL RBC 4.30 (3.80-5.40) m/uL Hgb 13.0 (11.4-16.0) gm/dL Hct 39.8 (34.0-46.0) % MCV 92.6 (80.0-100.0) fL MCH 30.3 (25.0-35.0) pg MCHC 32.7 (31.0-37.0) g/dL RDW 12.2 (11.5-15.5) % Plt Count 330 (150-450) k/uL MPV 7.7 Neutrophils % 72 % Lymphocytes % 19 % Monocytes % 5 % Eosinophils % 2 % Basophils % 1 % Neutrophils # 7.2 (1.3-7.7) k/uL Lymphocytes # 1.9 (1.0-4.8) k/uL Monocytes # 0.5 (0-1.0) k/uL Eosinophils # 0.2 (0-0.7) k/uL Basophils # 0.1 (0-0.2) k/uL ESR 2 (0-20) mm/hr PT 9.9 (9.0-12.0) sec INR 0.9 (<1.2) APTT 25.1 (22.0-30.0) sec Sodium 141 (137-145) mmol/L Potassium 4.3 (3.5-5.1) mmol/L Chloride 107 (98-107) mmol/L Carbon Dioxide 27 (22-30) mmol/L Anion Gap 7 mmol/L BUN 9 (7-17) mg/dL Creatinine 0.66 (0.52-1.04) mg/dL Est GFR (CKD-EPI)AfAm >90 (>60 ml/min/1.73 sqM) Est GFR (CKD-EPI)NonAf >90 (>60 ml/min/1.73 sqM) Glucose 96 (74-99) mg/dL Plasma Lactic Acid Anuj (0.7-2.0) mmol/L Calcium 9.4 (8.4-10.2) mg/dL Total Bilirubin 0.6 (0.2-1.3) mg/dL AST 28 (14-36) U/L ALT 23 (4-34) U/L Alkaline Phosphatase 74 (38-126) U/L Troponin I (0.000-0.034) ng/mL C-Reactive Protein <0.5 (<1.0) mg/dL Total Protein 6.9 (6.3-8.2) g/dL Albumin 4.4 (3.5-5.0) g/dL Amylase 53 (30-110) U/L Lipase 101 (23-300) U/L 01/17/23 01/17/23 Range/Units 14:00 14:00 WBC (3.8-10.6) k/uL RBC (3.80-5.40) m/uL Hgb (11.4-16.0) gm/dL Hct (34.0-46.0) % MCV (80.0-100.0) fL MCH (25.0-35.0) pg MCHC (31.0-37.0) g/dL RDW (11.5-15.5) % Plt Count (150-450) k/uL MPV Neutrophils % % Lymphocytes % % Monocytes % % Eosinophils % % Basophils % % Neutrophils # (1.3-7.7) k/uL Lymphocytes # (1.0-4.8) k/uL Monocytes # (0-1.0) k/uL Eosinophils # (0-0.7) k/uL Basophils # (0-0.2) k/uL ESR (0-20) mm/hr PT (9.0-12.0) sec INR (<1.2) APTT (22.0-30.0) sec Sodium (137-145) mmol/L Potassium (3.5-5.1) mmol/L Chloride (98-107) mmol/L Carbon Dioxide (22-30) mmol/L Anion Gap mmol/L BUN (7-17) mg/dL Creatinine (0.52-1.04) mg/dL Est GFR (CKD-EPI)AfAm (>60 ml/min/1.73 sqM) Est GFR (CKD-EPI)NonAf (>60 ml/min/1.73 sqM) Glucose (74-99) mg/dL Plasma Lactic Acid Anuj 0.7 (0.7-2.0) mmol/L Calcium (8.4-10.2) mg/dL Total Bilirubin (0.2-1.3) mg/dL AST (14-36) U/L ALT (4-34) U/L Alkaline Phosphatase (38-126) U/L Troponin I <0.012 (0.000-0.034) ng/mL C-Reactive Protein (<1.0) mg/dL Total Protein (6.3-8.2) g/dL Albumin (3.5-5.0) g/dL Amylase (30-110) U/L Lipase (23-300) U/L Disposition Clinical Impression: Abdominal pain, Flank pain Disposition: HOME SELF-CARE Instructions (If sedation given, give patient instructions): Abdominal Pain (ED), Flank Pain (ED) Additional Instructions: Return to the emergency department with any new, worsening, or concerning symptoms. Alternate with ibuprofen and Tylenol for pain relief. You can take the Zofran up to every 8 hours as needed for nausea and vomiting. Follow up with your primary care provider in 1-2 days. Prescriptions: Ondansetron Odt [Zofran Odt] 4 mg PO Q8HR PRN #20 tab PRN Reason: Nausea And Vomiting Is patient prescribed a controlled substance at d/c from ED?: No Referrals: Fabio Anderson MD [Primary Care Provider] - 1-2 days Mague Torres MD [STAFF PHYSICIAN] - 1-2 days
[2022-12-13] MEDS ORDERED: ACETAMINOPHEN IV (For NPO) 1,000 MG in EMPTY BAG 1 BAG IVPB STA (15:05)
[2022-12-13 15:24] LABS: Erythrocyte Sedimentation Rate 2 mm/hr (0-20)
[2022-12-13] MEDS ORDERED: ONDANSETRON 4 MG ODT STARTER PACK 2 TAB BTL PO STA (16:08)
[2022-12-13 16:53] LABS: Appearance,Urine Clear (Clear); Bilirubin,Urine Negative (Negative); Blood,Urine Negative (Negative); Color,Urine Yellow; Glucose,Urine (UA) Negative (Negative); Ketones,Urine 1+ (Negative); Leukocyte Esterase,Urine Negative (Negative); Nitrite,Urine Negative (Negative); Protein,Urine Trace (Negative); Specific Gravity,Urine >1.050 (1.001-1.035); Urobilinogen,Urine <2.0 mg/dL (<2.0)
[2022-12-13 17:10] VITALS: BP 109/68; PULSE 61; RESP 18; TEMP 97.6
== END 2022-12-13 17:10 | disposition home or self-care (01) ==
LOC: EC 12:56
DX: R10.13 Epigastric pain (principal); R10.31 Right lower quadrant pain; R10.32 Left lower quadrant pain; F17.200 Nicotine dependence, unspecified, uncomplicated; F12.90 Cannabis use, unspecified, uncomplicated; F41.9 Anxiety disorder, unspecified; Z88.2 Allergy status to sulfonamides; Z91.030 Bee allergy status; Z88.0 Allergy status to penicillin; Z88.1 Allergy status to other antibiotic agents; Z90.710 Acquired absence of both cervix and uterus; Z79.899 Other long term (current) drug therapy
CPT/HCPCS: 36415; 93005; 80053; 85652; 82150; 83605; 83690; 84484; 85025; 85610; 85730; 86140; 81003; 74177; 99284; 96374; 96375; 96361; J2405; J0131; J1885; S0119; Q9967

== ENCOUNTER 2022-12-20 11:10 | Inpatient (IN) | payer MEDICARE, OTHER ==
--- NOTE | 2022-12-20 11:12 | ED ---
General Adult HPI <Darlene Messer - Last Filed: 12/20/22 11:11> <Jacey Cueto - Last Filed: 12/25/22 02:23> - General Stated complaint: abd pain,distention Time Seen by Provider: 12/20/22 12:30 - History of Present Illness Initial comments: 52-year-old female presents to the emergency department for generalized abdominal pain since 11/30/2022. Was sent in by Dr. Esteban. (Darlene Messer) 52-year-old female presents to the emergency department reporting abdominal pain. States that it has been going on since the fourth of the month. She has been seen multiple times for similar complaint. Describes it as an epigastric pain without radiation. She has had multiple CAT scans, ultrasounds and laboratory testing. She was even at [facility] for evaluation. She presents today stating that she was told to come into the emergency department by Dr. Anderson. He wanted Dr. Esteban to evaluate the patient. Dr. Esteban has never seen the patient before but was agreeable to consult on the patient tomorrow. Patient adamant that she is a direct admit upon coming to the emergency department. (Jacey Cueto) - Related Data Home Medications Medication Instructions Recorded Confirmed ALPRAZolam [Xanax] 0.5 mg PO TID 07/19/17 12/20/22 Hyoscyamine Sulfate [Levsin-Sl] 0.125 mg SL QID PRN 12/20/22 12/20/22 Ketorolac [Toradol] 10 mg PO QID PRN 12/20/22 12/20/22 Metoclopramide [Reglan] 10 mg PO TID PRN 12/20/22 12/20/22 Sucralfate [Carafate] 1 gm PO ACHS 12/20/22 12/20/22 Previous Rx's Medication Instructions Recorded Acetaminophen Tab [Tylenol] 325 mg PO Q6HR PRN tab 12/23/22 Levofloxacin [Levaquin] 500 mg PO DAILY 1 Days #7 tab 12/23/22 Pantoprazole [Protonix] 40 mg PO BID #60 tab 12/23/22 metroNIDAZOLE [Flagyl] 500 mg PO TID #20 tab 12/23/22 Allergies Allergy/AdvReac Type Severity Reaction Status Date / Time bee venom protein (honey bee) Allergy Anaphylaxis Verified 12/20/22 13:25 codeine Allergy Rash/Hives/ Verified 12/20/22 13:25 Nausea loratadine [From Tavist ND] Allergy Rash/Hives Verified 12/20/22 13:25 Penicillins Allergy Anaphylaxis Verified 12/20/22 13:25 sulfamethoxazole Allergy Unknown Verified 12/20/22 13:25 [From Bactrim] trimethoprim [From Bactrim] Allergy Unknown Verified 12/20/22 13:25 Review of Systems ROS Other: All systems not noted in ROS Statement are negative. <Darlene Messer - Last Filed: 12/20/22 11:11> ROS Other: All systems not noted in ROS Statement are negative. <Jacey Cueto - Last Filed: 12/25/22 02:23> ROS Statement: Those systems with pertinent positive or pertinent negative responses have been documented in the HPI. Past Medical History Past Medical History: Cancer Additional Past Medical History / Comment(s): melanoma cancer History of Any Multi-Drug Resistant Organisms: None Reported Past Surgical History: Hysterectomy Additional Past Surgical History / Comment(s): skin Past Psychological History: Anxiety Smoking Status: Current some day smoker Past Alcohol Use History: Rare Past Drug Use History: Marijuana <AydeDarlene - Last Filed: 12/20/22 11:11> General Exam General appearance: alert, in no apparent distress Head exam: Present: atraumatic, normocephalic, normal inspection Eye exam: Present: normal appearance, PERRL, EOMI. Absent: scleral icterus, conjunctival injection, periorbital swelling ENT exam: Present: normal exam, mucous membranes moist Neck exam: Present: normal inspection. Absent: tenderness, meningismus, lymphadenopathy Respiratory exam: Present: normal lung sounds bilaterally. Absent: respiratory distress, wheezes, rales, rhonchi, stridor Cardiovascular Exam: Present: regular rate, normal rhythm, normal heart sounds. Absent: systolic murmur, diastolic murmur, rubs, gallop, clicks GI/Abdominal exam: Present: soft, tenderness (generalized), normal bowel sounds. Absent: distended, guarding, rebound, rigid Extremities exam: Present: normal inspection, full ROM, normal capillary refill. Absent: tenderness, pedal edema, joint swelling, calf tenderness Back exam: Present: normal inspection Neurological exam: Present: alert, oriented X3, CN II-XII intact Psychiatric exam: Present: normal affect, normal mood Skin exam: Present: warm, dry, intact, normal color. Absent: rash <Jacey Cueto - Last Filed: 12/25/22 02:23> Course Vital Signs 12/20/22 11:20 Temperature 98.7 F Pulse Rate 81 Respiratory 16 Rate Blood Pressure 115/66 O2 Sat by Pulse 97 Oximetry Medical Decision Making - Lab Data Result diagrams: 12/23/22 04:59 12/23/22 04:59 <Jacey Cueto - Last Filed: 12/25/22 02:23> - Medical Decision Making Was pt. sent in by a medical professional or institution (, PA, PATENT PROSECUTION ATTORNEY, urgent care, hospital, or custodial...) When possible be specific PCP Dr. Anderson Did you speak to anyone other than the patient for history (EMS, parent, family, police, friend...)? What history was obtained from this source Dr. Serna Did you review nursing and triage notes (agree or disagree)? Why? @ -[I reviewed and agree with nursing and triage notes] Were old charts reviewed (outside hosp., previous admission, EMS record, old EKG, old radiological studies, urgent care reports/EKG's, custodial records)? Report findings Previous ED visits reviewed Differential Diagnosis (chest pain, altered mental status, abdominal pain women, abdominal pain men, vaginal bleeding, weakness, fever, dyspnea, syncope, headache, dizziness, GI bleed, back pain, seizure, CVA, palpatations, mental hea lth)? MDM Differential Abdominal Pain Women: Appendicitis, Cholecystitis, diverticulosis, ischemic bowel, pancreatitis, hepatitis, UTI, gastroenteritis, AAA, incarcerated hernia, bowel obstruction, constipation, inflammatory bowel, hepatitis, peptic ulcer disease, splenic infarction, perforated viscus, vulvitis, ovarian torsion, PID, kidney stone, placenta abruption... This is not meant to be an all-inclusive list EKG interpreted by me (3pts min.). No X-rays interpreted by me (1pt min.). @ -[None done] CT interpreted by me (1pt min.). No U/S interpreted by me (1pt. min.). @ -[None done] What testing was considered but not performed or refused? (CT, X-rays, U/S, labs)? Why? ultrasound however patient refusing all imaging What meds were considered but not given or refused? Why? @ -[None] Did you discuss the management of the patient with other professionals (professionals i.e. , PA, PATENT PROSECUTION ATTORNEY, lab, RT, psych nurse, social media campaign manager, cook helper preserves, teacher, aoc plans intelligence officer chief, casework supervisor)? Give summary Admitting physician, dr serna Was smoking cessation discussed for >3mins.? @ -[No] Was critical care preformed (if so, how long)? @ -[No] Were there social determinants of health that impacted care today? How? (Homelessness, low income, unemployed, alcoholism, drug addiction, transportation, low edu. Level, literacy, decrease access to med. care, group home, rehab)? @ -[No] Was there de-escalation of care discussed even if they declined (Discuss DNR or withdrawal of care, Hospice)? DNR status @ -[No] What co-morbidities impacted this encounter? (DM, HTN, Smoking, COPD, CAD, Cancer, CVA, ARF, Chemo, Hep., AIDS, mental health diagnosis, sleep apnea, morbid obesity)? None Was patient admitted / discharged? Hospital course, mention meds given and route, prescriptions, significant lab abnormalities, going to OR and other pertinent info. On arrival patient was placed into room 27. History and physical exam was performed. I did review the patient's previous imaging studies. I did request laboratory studies for which the patient was eventually agreeable. Laboratory studies within normal limits. Did call and speak with Dr. Esteban. States that she would be willing to see the patient however she will not take the admission. I did call and speak With Dr. Hamlin who will admit the patient with Dr. Esteban on consult. Patient is requesting Dilaudid and Xanax by name. I did provide her with a dose of pain medications and she will be admitted for further workup. Undiagnosed new problem with uncertain prognosis? yes Drug Therapy requiring intensive monitoring for toxicity (Heparin, Nitro, Insulin, Cardizem)? @ -[No] Were any procedures done? @ -[No] Diagnosis/symptom? acute abd pain Acute, or Chronic, or Acute on Chronic? acute Uncomplicated (without systemic symptoms) or Complicated (systemic symptoms)? complicated Side effects of treatment? @ -[No] Exacerbation, Progression, or Severe Exacerbation? @ -[No] Poses a threat to life or bodily function? How? (Chest pain, [place], [place], pneumonia, PE, COPD, DKA, ARF, appy, cholecystitis, CVA, Diverticulitis, Homicidal, Suicidal, threat to staff... and all critical care pts) @ -[No] (Jacey Cueto) - Lab Data Lab Results 12/20/22 12/20/22 12/20/22 Range/Units 13:15 13:15 13:15 WBC 10.1 (3.8-10.6) k/uL RBC 3.89 (3.80-5.40) m/uL Hgb 12.1 (11.4-16.0) gm/dL Hct 36.8 (34.0-46.0) % MCV 94.7 (80.0-100.0) fL MCH 31.1 (25.0-35.0) pg MCHC 32.9 (31.0-37.0) g/dL RDW 12.7 (11.5-15.5) % Plt Count 331 (150-450) k/uL MPV 8.0 Immature Gran % (Auto) % Absolute Nucleated RBC (0.00-0.00) X 10*3/uL Neutrophils % 61 % Lymphocytes % 26 % Monocytes % 7 % Eosinophils % 2 % Basophils % 1 % Immature Gran # (0.00-0.04) X 10*3/uL Neutrophils # 6.2 (1.3-7.7) k/uL Lymphocytes # 2.7 (1.0-4.8) k/uL Monocytes # 0.7 (0-1.0) k/uL Eosinophils # 0.2 (0-0.7) k/uL Basophils # 0.1 (0-0.2) k/uL NRBC/100 WBC Diff (0.0-0.0) /100 WBCS PT (9.0-12.0) sec INR (<1.2) Sodium 142 (137-145) mmol/L Potassium 4.1 (3.5-5.1) mmol/L Chloride 107 (98-107) mmol/L Carbon Dioxide 33 H (22-30) mmol/L Anion Gap 2 mmol/L BUN 10 (7-17) mg/dL Creatinine 0.64 (0.52-1.04) mg/dL Est GFR (CKD-EPI)AfAm >90 (>60 ml/min/1.73 sqM) Est GFR (CKD-EPI)NonAf >90 (>60 ml/min/1.73 sqM) BUN/Creatinine Ratio (12.00-20.00) Ratio Glucose 81 (74-99) mg/dL POC Glucose (mg/dL) (70-110) mg/dL POC Glu [employer] Supervisor ID Plasma Lactic Acid Anuj (0.7-2.0) mmol/L Calcium 9.0 (8.4-10.2) mg/dL Total Bilirubin 0.4 (0.2-1.3) mg/dL AST 28 (14-36) U/L ALT 33 (4-34) U/L Alkaline Phosphatase 62 (38-126) U/L Total Protein 6.6 (6.3-8.2) g/dL Albumin 4.2 (3.5-5.0) g/dL Lipase 79 (23-300) U/L Urine Color Light Yellow Urine Appearance Clear (Clear) Urine pH 7.5 (5.0-8.0) Ur Specific [place] 1.006 (1.001-1.035) Urine Protein Negative (Negative) Urine Glucose (UA) Negative (Negative) Urine Ketones Negative (Negative) Urine Blood Negative (Negative) Urine Nitrite Negative (Negative) Urine Bilirubin Negative (Negative) Urine Urobilinogen <2.0 (<2.0) mg/dL Ur Leukocyte Esterase Negative (Negative) 12/20/22 12/20/22 12/21/22 Range/Units 13:15 13:15 05:48 WBC 9.02 (3.8-10.6) k/uL RBC 3.42 L (3.80-5.40) m/uL Hgb 10.6 L (11.4-16.0) gm/dL Hct 33.7 L (34.0-46.0) % MCV 98.5 H (80.0-100.0) fL MCH 31.0 (25.0-35.0) pg MCHC 31.5 L (31.0-37.0) g/dL RDW 14.0 (11.5-15.5) % Plt Count 293 (150-450) k/uL MPV 10.8 Immature Gran % (Auto) 0.4 % Absolute Nucleated RBC 0 (0.00-0.00) X 10*3/uL Neutrophils % 52.3 % Lymphocytes % 35.1 % Monocytes % 9.3 % Eosinophils % 2.1 % Basophils % 0.8 % Immature Gran # 0.04 (0.00-0.04) X 10*3/uL Neutrophils # 4.71 (1.3-7.7) k/uL Lymphocytes # 3.17 (1.0-4.8) k/uL Monocytes # 0.84 (0-1.0) k/uL Eosinophils # 0.19 (0-0.7) k/uL Basophils # 0.07 (0-0.2) k/uL NRBC/100 WBC Diff 0 (0.0-0.0) /100 WBCS PT 10.2 (9.0-12.0) sec INR 1.0 (<1.2) Sodium (137-145) mmol/L Potassium (3.5-5.1) mmol/L Chloride (98-107) mmol/L Carbon Dioxide (22-30) mmol/L Anion Gap mmol/L BUN (7-17) mg/dL Creatinine (0.52-1.04) mg/dL Est GFR (CKD-EPI)AfAm (>60 ml/min/1.73 sqM) Est GFR (CKD-EPI)NonAf (>60 ml/min/1.73 sqM) BUN/Creatinine Ratio (12.00-20.00) Ratio Glucose (74-99) mg/dL POC Glucose (mg/dL) (70-110) mg/dL POC Glu [employer] Supervisor ID Plasma Lactic Acid Anuj 0.5 L (0.7-2.0) mmol/L Calcium (8.4-10.2) mg/dL Total Bilirubin (0.2-1.3) mg/dL AST (14-36) U/L ALT (4-34) U/L Alkaline Phosphatase (38-126) U/L Total Protein (6.3-8.2) g/dL Albumin (3.5-5.0) g/dL Lipase (23-300) U/L Urine Color Urine Appearance (Clear) Urine pH (5.0-8.0) Ur Specific [place] (1.001-1.035) Urine Protein (Negative) Urine Glucose (UA) (Negative) Urine Ketones (Negative) Urine Blood (Negative) Urine Nitrite (Negative) Urine Bilirubin (Negative) Urine Urobilinogen (<2.0) mg/dL Ur Leukocyte Esterase (Negative) 12/21/22 12/21/22 Range/Units 05:48 06:39 WBC (3.8-10.6) k/uL RBC (3.80-5.40) m/uL Hgb (11.4-16.0) gm/dL Hct (34.0-46.0) % MCV (80.0-100.0) fL MCH (25.0-35.0) pg MCHC (31.0-37.0) g/dL RDW (11.5-15.5) % Plt Count (150-450) k/uL MPV Immature Gran % (Auto) % Absolute Nucleated RBC (0.00-0.00) X 10*3/uL Neutrophils % % Lymphocytes % % Monocytes % % Eosinophils % % Basophils % % Immature Gran # (0.00-0.04) X 10*3/uL Neutrophils # (1.3-7.7) k/uL Lymphocytes # (1.0-4.8) k/uL Monocytes # (0-1.0) k/uL Eosinophils # (0-0.7) k/uL Basophils # (0-0.2) k/uL NRBC/100 WBC Diff (0.0-0.0) /100 WBCS PT (9.0-12.0) sec INR (<1.2) Sodium 144 (137-145) mmol/L Potassium 4.4 (3.5-5.1) mmol/L Chloride 109 (98-107) mmol/L Carbon Dioxide 25.3 (22-30) mmol/L Anion Gap 9.20 L mmol/L BUN 7.8 L (7-17) mg/dL Creatinine 0.7 (0.52-1.04) mg/dL Est GFR (CKD-EPI)AfAm 113.9 (>60 ml/min/1.73 sqM) Est GFR (CKD-EPI)NonAf 98.3 (>60 ml/min/1.73 sqM) BUN/Creatinine Ratio 11.10 L (12.00-20.00) Ratio Glucose 96 (74-99) mg/dL POC Glucose (mg/dL) 116 H (70-110) mg/dL POC Glu [employer] Supervisor Conner Hawkins Plasma Lactic Acid Anuj (0.7-2.0) mmol/L Calcium 8.6 L (8.4-10.2) mg/dL Total Bilirubin (0.2-1.3) mg/dL AST (14-36) U/L ALT (4-34) U/L Alkaline Phosphatase (38-126) U/L Total Protein (6.3-8.2) g/dL Albumin (3.5-5.0) g/dL Lipase (23-300) U/L Urine Color Urine Appearance (Clear) Urine pH (5.0-8.0) Ur Specific [place] (1.001-1.035) Urine Protein (Negative) Urine Glucose (UA) (Negative) Urine Ketones (Negative) Urine Blood (Negative) Urine Nitrite (Negative) Urine Bilirubin (Negative) Urine Urobilinogen (<2.0) mg/dL Ur Leukocyte Esterase (Negative) Disposition <Darlene Messer - Last Filed: 12/20/22 11:11> Is patient prescribed a controlled substance at d/c from ED?: No Time of Disposition: 13:47 Decision to Admit Reason: Admit from EC Decision Date: 12/20/22 Decision Time: 13:47 <Jacey Cueto - Last Filed: 12/25/22 02:23> Clinical Impression: Abdominal pain Disposition: ADMITTED IP TO THIS HOSP Condition: Stable
[2022-12-20 13:24] LABS: Basophils # (A) 0.1 k/uL (0-0.2); Basophils % (A) 1 %; Eosinophils # (A) 0.2 k/uL (0-0.7); Eosinophils % (A) 2 %; HCT 36.8 % (34.0-46.0); HGB 12.1 gm/dL (11.4-16.0); Lymphocytes # (A) 2.7 k/uL (1.0-4.8); Lymphocytes % (A) 26 %; MCH 31.1 pg (25.0-35.0); MCHC 32.9 g/dL (31.0-37.0); MCV 94.7 fL (80.0-100.0); Monocytes # (A) 0.7 k/uL (0-1.0); Monocytes % (A) 7 %; Neutrophils # (A) 6.2 k/uL (1.3-7.7); Neutrophils % (A) 61 %; Platelet Count 331 k/uL (150-450); RBC 3.89 m/uL (3.80-5.40); RDW 12.7 % (11.5-15.5); WBC 10.1 k/uL (3.8-10.6)
[2022-12-20 13:35] LABS: ALT 33 U/L (4-34); AST 28 U/L (14-36); African American GFR (CKD) >90 (>60 ml/min/1.73 sqM); Albumin 4.2 g/dL (3.5-5.0); Alkaline Phosphatase 62 U/L (38-126); Anion Gap 2 mmol/L; Blood Urea Nitrogen 10 mg/dL (7-17); Carbon Dioxide 33 mmol/L (22-30); Chloride 107 mmol/L (98-107); Glucose 81 mg/dL (74-99); Lipase 79 U/L (23-300); Non-African American GFR(CKD) >90 (>60 ml/min/1.73 sqM); Potassium 4.1 mmol/L (3.5-5.1); Sodium 142 mmol/L (137-145); Total Bilirubin 0.4 mg/dL (0.2-1.3); Total Protein 6.6 g/dL (6.3-8.2)
[2022-12-20 13:36] LABS: Prothrombin Time 10.2 sec (9.0-12.0)
[2022-12-20 13:38] LABS: Appearance,Urine Clear (Clear); Bilirubin,Urine Negative (Negative); Blood,Urine Negative (Negative); Color,Urine Light Yellow; Glucose,Urine (UA) Negative (Negative); Ketones,Urine Negative (Negative); Leukocyte Esterase,Urine Negative (Negative); Nitrite,Urine Negative (Negative); PH, Urine 7.5 (5.0-8.0); Protein,Urine Negative (Negative); Specific Gravity,Urine 1.006 (1.001-1.035); Urobilinogen,Urine <2.0 mg/dL (<2.0)
[2022-12-20] MEDS ORDERED: HYDROmorphone 1 MG/ML 1 ML SYRINGE IVP STA (13:46)
[2022-12-20] MEDS ORDERED: NALOXONE 0.4 MG/ML 1 ML VIAL IV PRN (13:47)
[2022-12-20] MEDS: SODIUM CHLORIDE 0.9% 1,000 ML IV SCH (14:37)
[2022-12-20] MEDS: HEPARIN SODIUM,PORCINE/PF 5,000 UNIT/0.5 ML SYRINGE SQ SCH ×2 (16:01→23:18)
[2022-12-20] MEDS: PANTOPRAZOLE 40 MG/10 ML VIAL IVP SCH ×2 (16:02→19:44)
[2022-12-20] MEDS: ALPRAZolam 0.5 MG TAB PO SCH ×2 (16:02→20:49)
[2022-12-20] MEDS: SUCRALFATE 1 GM TAB PO SCH ×2 (16:02→20:49)
--- NOTE | 2022-12-20 17:58 | XR ---
EXAMINATION TYPE: XR abdomen 1V DATE OF EXAM: 12/20/2022 COMPARISON: CT abdomen pelvis 12/13/2022 HISTORY: Abdominal pain TECHNIQUE: Supine view of the abdomen was obtained with 2 radiographs. FINDINGS: Small bowel demonstrates no evidence for dilatation or air fluid levels. Gas and fecal material is seen in non-distended colon. No convincing evidence for pneumoperitoneum within limitations of a supine exam. No unusual calcifications. The lung bases are clear. The osseous structures are intact. IMPRESSION: Negative radiograph of the abdomen.
[2022-12-20] MEDS: HYDROmorphone 0.5 MG/0.5 ML SYRINGE IVP PRN ×2 (18:23→23:17)
[2022-12-20] MEDS ORDERED: ONDANSETRON 4 MG/2 ML VIAL IVP STA (20:57)
[2022-12-20] MEDS ORDERED: ONDANSETRON 4 MG in SODIUM CHLORIDE 0.9% 50 ML IVPB PRN (20:57)
[2022-12-20] MEDS ORDERED: ONDANSETRON 4 MG/2 ML VIAL IVP PRN (21:02)
--- NOTE | 2022-12-20 23:12 | P.HPIM ---
History of Present Illness H&P Date: 12/20/22 Chief Complaint: Abdominal pain Patient is a 52-year-old female with a known history of anxiety, melanoma, currently some day smoker presents to ER with complaints of abdominal pain. Patient was sent to the hospital by his primary care physician Dr. Anderson. Patient states that she started having abdominal pain since 11/30/2022. Patient was started having nausea and abdominal pain at the time and was found to have urinary tract infection. Patient was prescribed antibiotics, Bactrim and she took it for 5 days. Patient states that she was still having abdominal pain and was seen in the ER here on 12/13/2022. CT abdomen pelvis without contrast was done on 12/13/2022 showed no acute process. Patient was again seen at [facility] on 12/15/2022. Patient states that she had ultrasound of the abdomen at that time which showed no acute changes and was sen t home from ER. Patient today went to see her primary care physician and was still having abdominal pain mainly across the upper abdomen and was also saying it goes to all of the abdomen. Patient noticed distention of the abdomen as well. Dr. Anderson spoke with Dr. Salgado for surgical evaluation and was sent to ER. CT of the abdomen pelvis done on 12/13/2022 showed no acute process. Laboratory test showed WC 10.1 hemoglobin 12.1 and platelets 331 Sodium 142 potassium 4.1 chloride 107 bicarb is 33 BUN 10 and creatinine of 0.64 lactic acid 0.5 and liver enzymes are not elevated total bilirubin level is 0.4 AST 28 ALT 33 alk phos 62 albumin 4.1 lipase 79 Urinalysis is negative for infection. Review of Systems Constitutional: Patient denies any fever or chills . no Generalized weakness. Abdomen: Patient complains of abdominal pain mainly in the epigastric upper abdominal. Nausea also complains of distention. No diarrhea. Cardiovascular: Patient denies any chest pain or short of breath no palpitations. Respiratory: patient denied any cough . no sputum production. No shortness of breath Neurologic: Patient denied any numbness or tingling headache. Musculoskeletal: Patient denies any complaints of joint swelling or deformity. Skin: Negative Psychiatric: Negative Endocrine: No heat or cold intolerance. No recent weight gain. Genitourinary: No dysuria or hematuria. All other 14 point ROS negative except the above Past Medical History Past Medical History: Cancer Additional Past Medical History / Comment(s): melanoma cancer History of Any Multi-Drug Resistant Organisms: None Reported Past Surgical History: Hysterectomy Additional Past Surgical History / Comment(s): skin Past Psychological History: Anxiety Smoking Status: Current some day smoker Past Alcohol Use History: Rare Past Drug Use History: Marijuana Medications and Allergies Home Medications Medication Instructions Recorded Confirmed Type ALPRAZolam [Xanax] 0.5 mg PO TID 07/19/17 12/20/22 History Hyoscyamine Sulfate [Levsin-Sl] 0.125 mg SL QID PRN 12/20/22 12/20/22 History Ketorolac [Toradol] 10 mg PO QID PRN 12/20/22 12/20/22 History Metoclopramide [Reglan] 10 mg PO TID PRN 12/20/22 12/20/22 History Pantoprazole [Protonix] 40 mg PO DAILY 12/20/22 12/20/22 History Sucralfate [Carafate] 1 gm PO ACHS 12/20/22 12/20/22 History Allergies Allergy/AdvReac Type Severity Reaction Status Date / Time bee venom protein (honey bee) Allergy Anaphylaxis Verified 12/20/22 13:25 codeine Allergy Rash/Hives/ Verified 12/20/22 13:25 Nausea loratadine [From Tavist ND] Allergy Rash/Hives Verified 12/20/22 13:25 Penicillins Allergy Anaphylaxis Verified 12/20/22 13:25 sulfamethoxazole Allergy Unknown Verified 12/20/22 13:25 [From Bactrim] trimethoprim [From Bactrim] Allergy Unknown Verified 12/20/22 13:25 Physical Exam Vitals: Vital Signs Temp Pulse Resp BP Pulse Ox 12/20/22 11:20 98.7 F 81 16 115/66 97 Intake and Output 12/20/22 12/20/22 12/20/22 06:59 14:59 22:59 Other: Weight 76.657 kg PHYSICAL EXAMINATION: Patient is lying in the bed comfortably, no acute distress, awake alert and oriented.. HEENT: Normocephalic. Neck is supple. Pupils reactive. Nostrils clear. Oral cavity is moist. Neck reveals no JVD, carotid bruits, or thyromegaly. CHEST EXAMINATION: Trachea is central. Symmetrical expansion. Lung alejo clear to auscultation and percussion. CARDIAC: Normal S1, S2 with no gallops. No murmurs ABDOMEN: Soft. Bowel sounds present. Mild epigastric tenderness and right upper quadrant tenderness. No organomegaly. No abdominal bruits. Extremities: reveal no edema. No clubbing or cyanosis Neurologically awake, alert, oriented x3 with well-coordinated movements. No focal deficits noted Skin: No rash or skin lesions. Psychiatric: Coperative. Nonsuicidal, anxious. Musculoskeletal: No joint swelling or deformity. Normal range of motion. Results CBC & Chem 7: 12/21/22 05:48 12/21/22 05:48 Labs: Abnormal Lab Results - Last 24 Hours (Table) 12/20/22 12/20/22 Range/Units 13:15 13:15 Carbon Dioxide 33 H (22-30) mmol/L Plasma Lactic Acid Anuj 0.5 L (0.7-2.0) mmol/L Thrombosis Risk Factor Assmnt - DVT/VTE Prophylaxis DVT/VTE Prophylaxis: Pharmacologic Prophylaxis ordered Assessment and Plan Assessment: Abdominal pain mainly across the upper abdomen and also diffuse abdominal pain with mild distention. CT with contrast 12/13/2022 showed no acute process. Possible gastritis/peptic ulcer disease versus other abdominal etiology. Anxiety Currently some day smoker History of melanoma history of endometrial cancer Recent history of urinary tract infection with E. coli and was treated with Bactrim on 11/30/2022. DVT prophylaxis and GI prophylaxis Plan: Patient will be continued on IV hydration with normal saline and continue with clear liquid diet. Patient will be continued on Protonix IV push and sucralfate. Pain management with Dilaudid IV and follow-up closely. General surgery was consulted for further evaluation. Current with home medications and follow-up closely. Patient does take Toradol 10 mg 4 times daily as needed at home which is on hold. Time with Patient: Greater than 30
--- NOTE | 2022-12-20 23:20 | P.GSCN ---
History of Present Illness Consult date: 12/20/22 History of present illness: REASON FOR CONSULTATION: Abdominal pain HISTORY OF PRESENT ILLNESS: The patient is a 52 year old female admitted with 3 week history of generalized abdominal pain. Three weeks ago, she reports hematuria and was treated for a urinary tract infection. She had bilateral flank pain and presumed to have kidney infection. She was placed on antibiotics by her primary care doctor. She reported no improvement of her abdominal pain but her hematuria had resolved. Two weeks ago she was sent to have additional imaging for kidney stones and was unremarkable. She reports moderate to severe lower abdominal pain. She went to the emergency room at two different institutions at least two to three times. She was diagnosed with gastroesophageal reflux disease. She reports 20-pound unintentional weight gain with bilateral lower extremity swelling. She has personal history of melanoma of the left arm with resection over 3 years ago and endometrial cancer in the past. She does not follow up with an oncologist. She has not had a colonoscopy in over 5 years. She reports change in bowel habits with new abdominal distention. She reports her pain radiates from her epigastrium that radiates to the bilateral upper abdominal pain. Her pain radiates to her bilateral flank to her lower abdomen. General surgery is consulted for her abdominal pain. She reports discontinuing antibiotics over 1 week. PAST MEDICAL HISTORY: See list and reviewed PAST SURGICAL HISTORY: See list and reviewed MEDICATIONS: See list and reviewed ALLERGIES: See list and reviewed SOCIAL HISTORY: See list and reviewed. Retired nurse. FAMILY HISTORY: See list and reviewed REVIEW OF ORGAN SYSTEMS: CONSTITUTIONAL: No fevers or chills. Reports 20-pounds weight gain. EYES: Denies any trouble with vision. No glasses. HEENT: No difficulties with hearing. No nosebleeds. No difficulty swallowing. RESPIRATORY: Denies pneumonia. Denies any troubles with breathing or dyspnea on exertion. Has tobacco use. CARDIOVASCULAR: Denies any chest pain, palpitations, or recent heart attacks. GASTROINTESTINAL: Denies fatty food intolerance. Denies change in bowel habits and gas bloat. GENITOURINARY: Denies any blood in urine or increased urinary frequency. NEUROLOGICAL: Denies any numbness or tingling along the distal extremities. No seizure disorders or headaches. MUSCULOSKELETAL: Denies any back pain, stiffness or joint arthritis. SKIN: No current skin cancer. No rash. PSYCHIATRIC: Denies current depression or suicidal thoughts. Has anxiety. ENDOCRINE: Denies current thyroid disorders. Denies any blood sugar glucose intolerance. HEME/LYMPHATIC: Denies any lumps and bumps around the neck. No recent deep venous thrombosis. ALLERGY/IMMUNOLOGY: No immunoglobulin therapy. No immune deficiencies. BREAST: Denies current breast lumps, pain or nipple discharge. PHYSICAL EXAM: VITALS: Reviewed CONSTITUTIONAL: Well developed and in no acute distress. EYES: Conjuctivae without sclera icterus. Extraocular movements grossly intact. HEAD, EARS, NOSE, THROAT: Moist buccal mucosa. Head is atraumatic, normocephalic. Hears conversational speech. No nasal drainage. NECK: Supple. No JV distention. No thyroidomegaly. RESPIRATORY: Non-labored respirations and equal bilateral excursions. No gross wheezes. CARDIOVASCULAR: Palpable 2+ radial pulses. ABDOMEN: Distended. Tender epigastrium. No peritonitis. LYMPH: No neck lymphadenopathy. MUSCULOSKELETAL: Nail and fingers with good capillary refill. No clubbing or cyanosis, SKIN: Warm and well perfused with good skin turgor. NEUROLOGIC: Cranial nerves II through XII grossly intact. No focal or lateralizing signs. PSYCH: Appropriate affect. Alert and oriented to person, place and time. Displays appropriate insight. CLINCAL LABS: Reviewed. WBC normal. Hgb normal. LFTs normal. IMAGING: Independently reviewed. CT of the abdomen and pelvis from 12/07 demonstrated no kidney stones. No large or small bowel obstruction. This is my independent interpretation. CT abdomen and pelvis from 12/13 reviewed demonstrates no colitis. No small bowel obstruction or free air. This is my independent interpretation. RADIOLOGY: Report reviewed 12/07 no intra-abdominal masses for CT abdomen. Report 12/13 reviewed demonstrates no acute processes ASSESSMENT: 1. Abdominal pain, epigastric and upper abdomen. 2. Unintentional weight gain 3. Bilateral lower abdominal pain/flank pain 4. Personal history of endometrial cancer status post hysterectomy 5. Personal history of melanoma 6. Abdominal gas bloat PLAN: 1. Recommend upper endoscopy for gastroesophageal reflux disease and severe epigastric abdominal pain. 2. Recommend right upper quadrant abdominal ultrasound for gallbladder disorder and upper abdominal pain. 3. May benefit from referral to oncology for history of cancer melanoma and endometrial with acute clinical presentation 4. May benefit from colonoscopy due to change in bowel habits and lower abdominal pain. 5. May have clear liquid diet 6. Recommend tobacco cessation and counseling ADVANCE DIRECTIVE: Thank you for this kind consultation. Past Medical History Past Medical History: Cancer Additional Past Medical History / Comment(s): melanoma cancer History of Any Multi-Drug Resistant Organisms: None Reported Past Surgical History: Hysterectomy Additional Past Surgical History / Comment(s): skin Past Psychological History: Anxiety Smoking Status: Current some day smoker Past Alcohol Use History: Rare Past Drug Use History: Marijuana Medications and Allergies Home Medications Medication Instructions Recorded Confirmed Type ALPRAZolam [Xanax] 0.5 mg PO TID 07/19/17 12/20/22 History Hyoscyamine Sulfate [Levsin-Sl] 0.125 mg SL QID PRN 12/20/22 12/20/22 History Ketorolac [Toradol] 10 mg PO QID PRN 12/20/22 12/20/22 History Metoclopramide [Reglan] 10 mg PO TID PRN 12/20/22 12/20/22 History Pantoprazole [Protonix] 40 mg PO DAILY 12/20/22 12/20/22 History Sucralfate [Carafate] 1 gm PO ACHS 12/20/22 12/20/22 History Allergies Allergy/AdvReac Type Severity Reaction Status Date / Time bee venom protein (honey bee) Allergy Anaphylaxis Verified 12/20/22 13:25 codeine Allergy Rash/Hives/ Verified 12/20/22 13:25 Nausea loratadine [From Tavist ND] Allergy Rash/Hives Verified 12/20/22 13:25 Penicillins Allergy Anaphylaxis Verified 12/20/22 13:25 sulfamethoxazole Allergy Unknown Verified 12/20/22 13:25 [From Bactrim] trimethoprim [From Bactrim] Allergy Unknown Verified 12/20/22 13:25 Surgical - Exam Vital Signs Temp Pulse Resp BP Pulse Ox 98.7 F 81 16 115/66 97 12/20/22 11:20 12/20/22 11:20 12/20/22 11:20 12/20/22 11:20 12/20/22 11:20 Results - Labs 12/20/22 13:15 12/20/22 13:15 Abnormal Lab Results - Last 24 Hours (Table) 12/20/22 12/20/22 Range/Units 13:15 13:15 Carbon Dioxide 33 H (22-30) mmol/L Plasma Lactic Acid Anuj 0.5 L (0.7-2.0) mmol/L Diabetes panel 12/20/22 Range/Units 13:15 Sodium 142 (137-145) mmol/L Potassium 4.1 (3.5-5.1) mmol/L Chloride 107 (98-107) mmol/L Carbon Dioxide 33 H (22-30) mmol/L BUN 10 (7-17) mg/dL Creatinine 0.64 (0.52-1.04) mg/dL Glucose 81 (74-99) mg/dL Calcium 9.0 (8.4-10.2) mg/dL AST 28 (14-36) U/L ALT 33 (4-34) U/L Alkaline Phosphatase 62 (38-126) U/L Total Protein 6.6 (6.3-8.2) g/dL Albumin 4.2 (3.5-5.0) g/dL Calcium panel 12/20/22 Range/Units 13:15 Calcium 9.0 (8.4-10.2) mg/dL Albumin 4.2 (3.5-5.0) g/dL Pituitary panel 12/20/22 Range/Units 13:15 Sodium 142 (137-145) mmol/L Potassium 4.1 (3.5-5.1) mmol/L Chloride 107 (98-107) mmol/L Carbon Dioxide 33 H (22-30) mmol/L BUN 10 (7-17) mg/dL Creatinine 0.64 (0.52-1.04) mg/dL Glucose 81 (74-99) mg/dL Calcium 9.0 (8.4-10.2) mg/dL Adrenal panel 12/20/22 Range/Units 13:15 Sodium 142 (137-145) mmol/L Potassium 4.1 (3.5-5.1) mmol/L Chloride 107 (98-107) mmol/L Carbon Dioxide 33 H (22-30) mmol/L BUN 10 (7-17) mg/dL Creatinine 0.64 (0.52-1.04) mg/dL Glucose 81 (74-99) mg/dL Calcium 9.0 (8.4-10.2) mg/dL Total Bilirubin 0.4 (0.2-1.3) mg/dL AST 28 (14-36) U/L ALT 33 (4-34) U/L Alkaline Phosphatase 62 (38-126) U/L Total Protein 6.6 (6.3-8.2) g/dL Albumin 4.2 (3.5-5.0) g/dL
[2022-12-21] MEDS: HYDROmorphone 0.5 MG/0.5 ML SYRINGE IVP PRN (02:56)
[2022-12-21] MEDS: SODIUM CHLORIDE 0.9% 1,000 ML IV SCH ×2 (02:56→16:36)
[2022-12-21 06:40] LABS: Glucose,Whole Blood 116 mg/dL (70-110)
[2022-12-21] MEDS: ALPRAZolam 0.5 MG TAB PO SCH ×3 (08:58→16:35)
[2022-12-21] MEDS: PANTOPRAZOLE 40 MG/10 ML VIAL IVP SCH ×2 (08:58→10:41)
[2022-12-21] MEDS: SUCRALFATE 1 GM TAB PO SCH (08:58)
[2022-12-21] MEDS: HEPARIN SODIUM,PORCINE/PF 5,000 UNIT/0.5 ML SYRINGE SQ SCH ×3 (08:58→21:43)
--- NOTE | 2022-12-21 09:30 | US ---
EXAMINATION TYPE: US gallbladder DATE OF EXAM: 12/21/2022 COMPARISON: CT abdomen and pelvis 12/13/2022 CLINICAL HISTORY: Right upper quadrant abdominal pain. pain and vomiting TECHNIQUE: Multiple sonographic images of the right upper quadrant are obtained. FINDINGS: EXAM MEASUREMENTS: Liver Length: 17 cm Gallbladder Wall: 1.7 cm CBD: .4 cm Right Kidney: 9.5 x 3.5 x 4.8 cm PURCHASING EXPEDITOR NOTES: Pancreas: Obscured by bowel gas Liver: wnl Gallbladder: 9.6 cm Complex thickened wall 1.7 cm with pericholecystic fluid seen. No stones seen. Evidence for sonographic Celaya's sign: Yes CBD: wnl Right Kidney: No hydronephrosis or masses seen The pancreas is obscured due to overlying bowel gas. Underdistended gallbladder with complex thickene d wall and pericholecystic fluid. No shadowing gallstones identified. Per thread grinder tool, positive sonog raphic Celaya sign. The right kidney is unremarkable without evidence of hydronephrosis, nephrolithia sis, or contour deforming solid mass. IMPRESSION: Findings concerning for possible acalculous cholecystitis with complex thickened wall and pericholecy stic fluid with positive sonographic Celaya sign. Consider further evaluation nuclear medicine HIDA s can as clinically indicated.
[2022-12-21] MEDS ORDERED: IV FLUID CONTINUATION 1,000 ML IV ONE (09:35)
[2022-12-21] MEDS ORDERED: ONDANSETRON 4 MG/2 ML VIAL ONE (09:37)
[2022-12-21] MEDS ORDERED: PROPOFOL 10 MG/ML 20 ML VIAL IV ONE (09:37)
[2022-12-21] MEDS ORDERED: SODIUM CHLORIDE 0.9% 2,000 ML IV ONE (09:50)
--- NOTE | 2022-12-21 09:58 | P.PCN ---
Date of Procedure: 12/21/22 Description of Procedure: PREOPERATIVE DIAGNOSIS: Gastroesophageal reflux disease. Epigastric abdominal pain Intractable nausea and vomiting POSTOPERATIVE DIAGNOSIS: Diaphragmatic hiatal hernia without esophagitis OPERATION: Esophagogastroduodenoscopy with biopsies along antrum and duodenum SURGEON: Shira Salgado MD ANESTHESIA: MAC. INDICATIONS: The patient is a 52-year-old female who presents intractable nausea and vomiting, epigastric pain and reflux. Benefits and risks of the procedure were described. Informed consent was obtained. DESCRIPTION: The patient was brought into the endoscopy suite and laid in the left lateral decubitus position. An Olympus gastroscope was passed along the posterior oropharynx down to the distal esophagus where the squamocolumnar junction was encountered at 35 cm from the incisors. The stomach was entered and no bile reflux was found. Additional findings are listed below. Biopsies with cold forceps were obtained of the antrum. The first through third portion of the duodenum was examined. Retroflexion of the scope confirmed Hill grade 3 lower esophageal valve. The squamocolumnar junction demonstrated no LA grade A erosive esophagitis. The stomach was desufflated. The patient tolerated the procedure well. FINDINGS: Squamocolumnar junction 35 cm from the incisors. Diaphragmatic hiatus at 40 cm. Hiatal hernia, 5 cm Hill grade 3 lower esophageal valve. No LA grade A erosive esophagitis. Biopsies obtained of duodenum for celiac disease Biopsy obtained of the antrum RECOMMENDATIONS: Upper endoscopy as needed.
[2022-12-21] MEDS ORDERED: SCOPOLAMINE 1 MG/72 HR PATCH TRANSDERM SCH (10:00)
--- NOTE | 2022-12-21 10:08 | P.PN ---
Subjective Progress Note Date: 12/21/22 CHIEF COMPLAINT: Abdominal pain HISTORY OF PRESENT ILLNESS: The patient is a 52 year old female admitted with 3 week history of generalized abdominal pain. She reports in the past 1-2 weeks her pain is focal along the epigastrium moderate in severity radiating to her midback and bilateral upper abdomen. She completed ultrasound including upper endoscopy today. She presents with intractable nausea and vomiting. REVIEW OF ORGAN SYSTEMS: CONSTITUTIONAL: No fevers or chills. Reports 20-pounds weight gain, unintentional GASTROINTESTINAL: Has intractable nausea or vomiting. GENITOURINARY: Recent history of any tract infection with hematuria. History of endometrial cancer status post hysterectomy SKIN: History of melanoma treated 3 years ago. PHYSICAL EXAM: VITALS: Reviewed CONSTITUTIONAL: Well developed and in no acute distress. EYES: Conjuctivae without sclera icterus. Extraocular movements grossly intact. HEAD, EARS, NOSE, THROAT: Moist buccal mucosa. Head is atraumatic, normoce phalic. Hears conversational speech. No nasal drainage. RESPIRATORY: Non-labored respirations and equal bilateral excursions. No gross wheezes. CARDIOVASCULAR: Palpable 2+ radial pulses. ABDOMEN: Distended. Tender epigastrium. No peritonitis. MUSCULOSKELETAL: Nail and fingers with good capillary refill. No clubbing or cyanosis, SKIN: Warm and well perfused with good skin turgor. NEUROLOGIC: Cranial nerves II through XII grossly intact. No focal or lateralizing signs. PSYCH: Appropriate affect. Alert and oriented to person, place and time. Displays appropriate insight. CLINCAL LABS: Reviewed. IMAGING: Independently reviewed. Ultrasound of the gallbladder demonstrates thickened gallbladder wall with pericholecystic fluid. This is my independent interpretation. RADIOLOGY: Ultrasound gallbladder report demonstrates acute acalculous cholecystitis with pericholecystic fluid and positive Celaya sign. EGD REPORT: Upper endoscopy demonstrates hiatal hernia, no active bleeding for duodenal ulcers or gastric ulcers or erosive esophagitis ASSESSMENT: 1. Abdominal pain, epigastric and upper abdomen. 2. Unintentional weight gain 3. Bilateral lower abdominal pain/flank pain 4. Personal history of endometrial cancer status post hysterectomy 5. Personal history of melanoma 6. Abdominal gas bloat 7. Acute acalculous cholecystitis 8. Intractable nausea and vomiting due to dehydration PLAN: 1. Discontinue Protonix twice daily. Protonix once daily prescribed 2. Discontinue Carafate. 3. Scopolamine patch for intractable nausea and vomiting 4. IV fluid for dehydration 5. Robotic cholecystectomy described for acute acalculous cholecystitis 6. She is elevated risk due to acute comorbidities Objective - Vital Signs Vital signs: Vital Signs Temp 97.4 F L 12/21/22 07:05 Pulse 43 L 12/21/22 07:05 Resp 16 12/21/22 07:05 BP 118/79 12/21/22 07:05 Pulse Ox 100 12/21/22 07:05 FiO2 Intake & Output 12/20/22 12/21/22 12/21/22 18:59 06:59 18:59 Intake Total 240 1540 50 Balance 240 1540 50 Weight 76.657 kg Intake: IV 50 Intake, IV Titration 1000 Amount Sodium Chloride 0.9% 1, 1000 000 ml @ 75 mls/hr IV . [id number] [facility] Rx#:[id number] Oral 240 540 Other: Voiding Method Toilet - Labs CBC & Chem 7: 12/20/22 13:15 12/20/22 13:15 Labs: Abnormal Lab Results - Last 24 Hours (Table) 12/20/22 12/20/22 12/21/22 Range/Units 13:15 13:15 06:39 Carbon Dioxide 33 H (22-30) mmol/L POC Glucose (mg/dL) 116 H (70-110) mg/dL Plasma Lactic Acid Anuj 0.5 L (0.7-2.0) mmol/L
[2022-12-21 10:41] LABS: Basophils # (A) 0.07 X 10*3/uL (0.00-0.10); Basophils % (A) 0.8 %; Eosinophils # (A) 0.19 X 10*3/uL (0.04-0.35); Eosinophils % (A) 2.1 %; HCT 33.7 % (37.2-46.3); HGB 10.6 g/dL (12.0-15.0); Immature Grans, Automated 0.4 %; Lymphocytes # (A) 3.17 X 10*3/uL (0.90-5.00); Lymphocytes % (A) 35.1 %; MCHC 31.5 g/dL (32.0-37.0); MCV 98.5 fL (80.0-97.0); Mean Platelet Volume 10.8 fL (9.5-12.2); Monocytes # (A) 0.84 X 10*3/uL (0.20-1.00); Monocytes % (A) 9.3 %; NRBC Per 100 WBC 0 /100 WBCS (0.0-0.0); Neutrophils # (A) 4.71 X 10*3/uL (1.80-7.70); Neutrophils % (A) 52.3 %; Platelet Count 293 X 10*3/uL (140-440); RBC 3.42 X 10*6/uL (4.10-5.20); WBC 9.02 X 10*3/uL (4.50-10.00)
[2022-12-21] MEDS: ACETAMINOPHEN TAB 325 MG TAB PO PRN (10:45)
[2022-12-21 11:07] LABS: African American GFR (CKD) 113.9 (60.0-200.0); Anion Gap 9.2 mmol/L (10.00-18.00); BUN/Creat Ratio 11.1 Ratio (12.00-20.00); Blood Urea Nitrogen 7.8 mg/dL (9.0-27.0); Calcium 8.6 mg/dL (8.7-10.3); Carbon Dioxide 25.3 mmol/L (20.0-27.5); Non-African American GFR(CKD) 98.3 (60.0-200.0); Potassium 4.4 mmol/L (3.5-5.5)
[2022-12-21] MEDS: ONDANSETRON 4 MG/2 ML VIAL IVP SCH ×2 (13:07→17:48)
--- NOTE | 2022-12-21 14:11 | P.PN ---
Subjective Progress Note Date: 12/21/22 Patient is a 52-year-old female with a known history of anxiety, melanoma, currently some day smoker presents to ER with complaints of abdominal pain. Patient was sent to the hospital by his primary care physician Dr. Anderson. Patient states that she started having abdominal pain since 11/30/2022. Patient was started having nausea and abdominal pain at the time and was found to have urinary tract infection. Patient was prescribed antibiotics, Bactrim and she took it for 5 days. Patient states that she was still having abdominal pain and was seen in the ER here on 12/13/2022. CT abdomen pelvis without contrast was done on 12/13/2022 showed no acute process. Patient was again seen at [facility] on 12/15/2022. Patient states that she had ultrasound of the abdomen at that time which showed no acute changes and was sent home from ER. Patient today went to see her primary care physician and was still having abdominal pain mainly across the upper abdomen and was also saying it goes to all of the abdomen. Patient noticed distention of the abdomen as well. Dr. Anderson spoke with Dr. Salgado for surgical evaluation and was sent to ER. CT of the abdomen pelvis done on 12/13/2022 showed no acute process. Laboratory test showed WC 10.1 hemoglobin 12.1 and platelets 331 Sodium 142 potassium 4.1 chloride 107 bicarb is 33 BUN 10 and creatinine of 0.64 lactic acid 0.5 and liver enzymes are not elevated total bilirubin level is 0.4 AST 28 ALT 33 alk phos 62 albumin 4.1 lipase 79 Urinalysis is negative for infection. 12/21/2022 Patient is seen and evaluated and follow-up with general surgery following. Patient scheduled for gallbladder ultrasound today and EGD. Patient is currently nothing by mouth and reports she has been having continued nausea with abdominal pain and vomiting. Patient reports she has not eaten anything solid and at least a week. Patient cannot recall when she last had a bowel movement. Patient continues with severe abdominal pain and reports his uncontrolled. Patient does have IV Dilaudid on board. Patient is currently afebrile denies chest pain having some shortness of breath post EGD although is 99-100% on 2 L via nasal cannula. Recommend to wean FiO2 as tolerated and encouraged to increase activity as tolerated. Patient to remain nothing by mouth with plans for possible cholecystectomy tomorrow with Dr. Roberts. Review of systems: Constitutional: No reports of fatigue, fever, or chills Cardiovascular: No reports of chest pain or palpitations Respiratory: reports of intermittent shortness of breath status post EGD GI: reports of nausea with vomiting, denies diarrhea, reports has not eaten anything solid in over a week and continues with severe abdominal pain : No reports of dysuria or retention Neurovascular: No reports of weakness or numbness All medications have been reviewed Active Medications Acetaminophen (Acetaminophen Tab 325 Mg Tab) 325 mg PO Q6HR PRN PRN Reason: Fever and/ or Pain Alprazolam (Alprazolam 0.5 Mg Tab) 0.5 mg PO TID [facility] Last Admin: 12/20/22 20:49 Dose: 0.5 mg Heparin Sodium (Porcine) (Heparin Sodium,Porcine/Pf 5,000 Unit/0.5 Ml Syringe) 5,000 unit SQ Q8HR [facility] Last Admin: 12/21/22 08:58 Dose: 5,000 unit Hydromorphone HCl (Hydromorphone 0.5 Mg/0.5 Ml Syringe) 0.5 mg IVP Q4HR PRN PRN Reason: Pain Last Admin: 12/21/22 02:56 Dose: 0.5 mg Sodium Chloride (Saline 0.9%) 1,000 mls @ 75 mls/hr IV .[id number] [facility] Last Admin: 12/21/22 02:56 Dose: 75 mls/hr Naloxone HCl (Naloxone 0.4 Mg/Ml 1 Ml Vial) 0.2 mg IV Q2M PRN PRN Reason: Opioid Reversal Ondansetron HCl (Ondansetron 4 Mg/2 Ml Vial) 4 mg IVP Q6HR PRN PRN Reason: NAUSEA/VOMITING Last Admin: 12/21/22 06:33 Dose: 4 mg Pantoprazole Sodium (Pantoprazole 40 Mg/10 Ml Vial) 40 mg IVP BID [facility] Last Admin: 12/21/22 08:58 Dose: 40 mg Sucralfate (Sucralfate 1 Gm Tab) 1 gm PO ACHS [facility] Last Admin: 12/21/22 08:58 Dose: Not Given Physical exam: Gen: This is a 52-year-old female who is awake, alert and oriented 3, well- developed, well-nourished HEENT: Head is atraumatic, normocephalic. Pupils equal, round. Sclerae is anicteric. NECK: Supple. No JVD. No lymphadenopathy. No thyromegaly. LUNGS: Clear to auscultation. Some bilateral scattered rhonchi noted. No intercostal retractions. HEART: Regular rate and rhythm. No murmur. ABDOMEN: Soft. Tender in the right upper quadrant with positive Celaya sign on palpation. Bowel sounds are sluggish. No masses. EXTREMITIES: No pedal edema. No calf tenderness. NEUROLOGICAL: Patient is awake, alert and oriented x3. Cranial nerves 2 through 12 are grossly intact. Assessment: Abdominal pain mainly across the upper abdomen and also diffuse abdominal pain with mild distention. CT with contrast 12/13/2022 showed no acute process. Possible gastritis/peptic ulcer disease versus other abdominal etiology. Acute acalculous cholecystitis as noted on gallbladder ultrasound Diaphragmatic hiatal hernia without esophagitis with biopsies obtained, on EGD Anxiety Currently some day smoker History of melanoma Recent history of urinary tract infection with E. coli and was treated with Bactrim on 11/30/2022. DVT prophylaxis and GI prophylaxis Full code Plan: Patient will be continued on IV hydration with normal saline and continue with clear liquid diet as tolerated and will be nothing by mouth at midnight and tentatively scheduled for laparoscopic cholecystectomy with Dr. Roberts in the a.m. Protonix has been changed to daily and Carafate discontinued Pain management with Dilaudid IV and follow-up closely. Patient continues to report severe 10/10 pain in her abdomen, with positive Celaya's sign and right upper quadrant tenderness on palpation Current with home medications and follow-up closely. NSAIDs being held currently Will follow-up with repeat labs in a.m. and continue IV hydration. Encouraged increase activity as tolerated Prognosis is guarded. Given patient's continued uncontrolled pain and abdominal tenderness with plans for cholecystectomy patient will require more than 2 night stay in the hospital as patient continues to be symptomatic. Await surgical cl earance The impression and plan of care has been dictated by Nurse Anthony Pra ctitioner as directed. Dr. Boubacar MD I have performed a history and examination and MDM of this patient, discussed the same with the dictator, and agree with the dictator's assessment and plan as written ,documented as a scribe. Based on total visit time, I have performed more than 50% of the visit. Objective - Vital Signs Vital signs: Vital Signs Temp 97.4 F L 12/21/22 07:05 Pulse 43 L 12/21/22 07:05 Resp 16 12/21/22 07:05 BP 118/79 12/21/22 07:05 Pulse Ox 100 12/21/22 07:05 FiO2 Intake & Output 12/20/22 12/21/22 12/21/22 18:59 06:59 18:59 Intake Total 240 1540 Balance 240 1540 Weight 76.657 kg Intake: Intake, IV Titration 1000 Amount Sodium Chloride 0.9% 1, 1000 000 ml @ 75 mls/hr IV . [id number] [facility] Rx#:[id number] Oral 240 540 Other: Voiding Method Toilet - Labs CBC & Chem 7: 12/21/22 05:48 12/21/22 05:48 Labs: Abnormal Lab Results - Last 24 Hours (Table) 12/20/22 12/20/22 12/21/22 Range/Units 13:15 13:15 06:39 Carbon Dioxide 33 H (22-30) mmol/L POC Glucose (mg/dL) 116 H (70-110) mg/dL Plasma Lactic Acid Anuj 0.5 L (0.7-2.0) mmol/L
[2022-12-21] MEDS ORDERED: PROCHLORPERAZINE INJ 10 MG/2 ML VIAL IVP STA (21:16)
[2022-12-21] MEDS ORDERED: CALCIUM CARBONATE 500 MG CHEWABLE PO PRN (21:20)
[2022-12-21] MEDS: LORazepam 2 MG/ML INJ IV PRN (21:43)
[2022-12-22] MEDS: ONDANSETRON 4 MG/2 ML VIAL IVP SCH ×4 (01:41→18:42)
[2022-12-22] MEDS: SODIUM CHLORIDE 0.9% 1,000 ML IV SCH ×3 (04:41→19:10)
[2022-12-22] MEDS ORDERED: PROCHLORPERAZINE INJ 10 MG/2 ML VIAL IVP PRN (08:53)
[2022-12-22] MEDS: HEPARIN SODIUM,PORCINE/PF 5,000 UNIT/0.5 ML SYRINGE SQ SCH ×2 (09:33→17:03)
[2022-12-22] MEDS: METOCLOPRAMIDE 5 MG/ML 2 ML VIAL IVP SCH ×2 (09:33→15:34)
[2022-12-22] MEDS: PANTOPRAZOLE 40 MG/10 ML VIAL IVP SCH (09:33)
[2022-12-22 09:37] LABS: Basophils # (A) 0.08 X 10*3/uL (0.00-0.10); Basophils % (A) 0.7 %; Eosinophils % (A) 0.9 %; HCT 35.3 % (37.2-46.3); HGB 10.9 g/dL (12.0-15.0); Immature Grans, Automated 0.3 %; Lymphocytes # (A) 2.07 X 10*3/uL (0.90-5.00); Lymphocytes % (A) 17.9 %; MCH 30.3 pg (27.0-32.0); MCHC 30.9 g/dL (32.0-37.0); MCV 98.1 fL (80.0-97.0); Mean Platelet Volume 11.5 fL (9.5-12.2); Monocytes # (A) 1.17 X 10*3/uL (0.20-1.00); Monocytes % (A) 10.1 %; NRBC Per 100 WBC 0 /100 WBCS (0.0-0.0); Neutrophils # (A) 8.11 X 10*3/uL (1.80-7.70); Neutrophils % (A) 70.1 %; Platelet Count 286 X 10*3/uL (140-440); WBC 11.57 X 10*3/uL (4.50-10.00)
[2022-12-22] MEDS: LORazepam 2 MG/ML INJ IV PRN (09:55)
[2022-12-22] MEDS: ACETAMINOPHEN TAB 325 MG TAB PO PRN (09:56)
[2022-12-22 10:02] LABS: African American GFR (CKD) 99.1 (60.0-200.0); Albumin 3.7 g/dL (3.8-4.9); Albumin/Globulin Ratio 2.33 (1.60-3.17); Anion Gap 10.7 mmol/L (10.00-18.00); BUN/Creat Ratio 10.1 Ratio (12.00-20.00); Blood Urea Nitrogen 7.9 mg/dL (9.0-27.0); Calcium 8.7 mg/dL (8.7-10.3); Carbon Dioxide 23.9 mmol/L (20.0-27.5); Globulin 1.6 g/dL (1.6-3.3); Non-African American GFR(CKD) 85.5 (60.0-200.0); Potassium 4.2 mmol/L (3.5-5.5); Total Bilirubin 0.5 mg/dL (0.30-1.20); Total Protein 5.3 g/dL (6.2-8.2)
[2022-12-22] MEDS: HYDROmorphone 0.5 MG/0.5 ML SYRINGE IVP PRN (13:43)
[2022-12-22] MEDS ORDERED: INDOCYANINE GREEN 25 MG VIAL IV ONE (14:00)
[2022-12-22] MEDS ORDERED: LEVOFLOXACIN 500MG-D5W PMX 500 MG in DEXTROSE/WATER 1 100ML.BAG IVPB SCH (16:00)
[2022-12-22] MEDS: metroNIDAZOLE-NS PMX 500 MG in SALINE 1 100ML.BAG IVPB SCH (16:34)
[2022-12-22] MEDS ORDERED: HYDROmorphone (PF) 1 MG/ML ONE (19:04)
[2022-12-22] MEDS ORDERED: NEOSTIGMINE 1 MG/ML 10 ML VIAL ONE (19:04)
[2022-12-22] MEDS ORDERED: PROPOFOL 10 MG/ML 20 ML VIAL IV ONE (19:04)
[2022-12-22] MEDS ORDERED: ROCURONIUM 10 MG/ML (5 ML VIAL) IV ONE (19:04)
[2022-12-22] MEDS ORDERED: LIDOCAINE 2% INJ 20 MG/ML (2 ML VIAL) ONE (19:04)
[2022-12-22] MEDS ORDERED: GLYCOPYRROLATE 0.2 MG/ML 2 ML VIAL ONE (19:04)
[2022-12-22] MEDS ORDERED: SUCCINYLCHOLINE CHLORIDE 200 MG/10 ML VIAL IV ONE (19:04)
[2022-12-22] MEDS ORDERED: ONDANSETRON 4 MG/2 ML VIAL ONE (19:04)
[2022-12-22] MEDS ORDERED: fentaNYL (PF) 50 MCG/ML 2 ML AMP ONE (19:04)
[2022-12-22] MEDS ORDERED: MIDAZOLAM 2 MG/2 ML VIAL ONE (19:04)
[2022-12-22] MEDS ORDERED: BUPIVACAIN-EPI 0.25%-1:200,000 30 ML VIAL SQ ONE ×2 (19:11→19:47)
[2022-12-22] MEDS ORDERED: LACTATED RINGERS 1,000 ML IV ONE (19:30)
--- NOTE | 2022-12-22 19:52 | P.PN ---
Subjective Progress Note Date: 12/22/22 Patient is a 52-year-old female with a known history of anxiety, melanoma, currently some day smoker presents to ER with complaints of abdominal pain. Patient was sent to the hospital by his primary care physician Dr. Anderson. Patient states that she started having abdominal pain since 11/30/2022. Patient was started having nausea and abdominal pain at the time and was found to have urinary tract infection. Patient was prescribed antibiotics, Bactrim and she took it for 5 days. Patient states that she was still having abdominal pain and was seen in the ER here on 12/13/2022. CT abdomen pelvis without contrast was done on 12/13/2022 showed no acute process. Patient was again seen at [facility] on 12/15/2022. Patient states that she had ultrasound of the abdomen at that time which showed no acute changes and was sent home from ER. Patient today went to see her primary care physician and was still having abdominal pain mainly across the upper abdomen and was also saying it goes to all of the abdomen. Patient noticed distention of the abdomen as well. Dr. Anderson spoke with Dr. Salgado for surgical evaluation and was sent to ER. CT of the abdomen pelvis done on 12/13/2022 showed no acute process. Laboratory test showed WC 10.1 hemoglobin 12.1 and platelets 331 Sodium 142 potassium 4.1 chloride 107 bicarb is 33 BUN 10 and creatinine of 0.64 lactic acid 0.5 and liver enzymes are not elevated total bilirubin level is 0.4 AST 28 ALT 33 alk phos 62 albumin 4.1 lipase 79 Urinalysis is negative for infection. 12/21/2022 Patient is seen and evaluated and follow-up with general surgery following. Patient scheduled for gallbladder ultrasound today and EGD. Patient is currently nothing by mouth and reports she has been having continued nausea with abdominal pain and vomiting. Patient reports she has not eaten anything solid and at least a week. Patient cannot recall when she last had a bowel movement. Patient continues with severe abdominal pain and reports his uncontrolled. Patient does have IV Dilaudid on board. Patient is currently afebrile denies chest pain having some shortness of breath post EGD although is 99-100% on 2 L via nasal cannula. Recommend to wean FiO2 as tolerated and encouraged to increase activity as tolerated. Patient to remain nothing by mouth with plans for possible cholecystectomy tomorrow with Dr. Roberts. 12/22/2022 Patient is seen and evaluated and follow-up currently nothing by mouth as patient is scheduled to undergo cholecystectomy which general surgery today. Patient continues to report severe abdominal pain and discomfort with light palpation in the right upper quadrant. Patient is maintained on a gentle IV hydration in the form of normal saline and sodium currently 145 with a potassium 4.2, creatinine is 0.8 recommend close monitoring and follow-up labs in a.m. Patient also noted to have a hiatal hernia during EGD and inquiring if this is going to be repaired. Patient instructed to discuss with surgery. Will await surgical report follow-up with repeat labs in continue to monitor and follow along closely with general surgery. Encouraged increase activity and recommend incentive spirometer Review of systems: Constitutional: No reports of fatigue, fever, or chills Cardiovascular: No reports of chest pain or palpitations Respiratory: reports of intermittent shortness of breath status post EGD GI: reports of nausea with vomiting, denies diarrhea, reports has not eaten anything solid in over a week and continues with severe abdominal pain : No reports of dysuria or retention Neurovascular: No reports of weakness or numbness All medications have been reviewed Active Medications Acetaminophen (Acetaminophen Tab 325 Mg Tab) 325 mg PO Q6HR PRN PRN Reason: Fever and/ or Pain Last Admin: 12/22/22 09:56 Dose: 325 mg Calcium Carbonate/Glycine (Calcium Carbonate 500 Mg Chewable) 500 mg PO TID PRN PRN Reason: Heartburn Heparin Sodium (Porcine) (Heparin Sodium,Porcine/Pf 5,000 Unit/0.5 Ml Syringe) 5,000 unit SQ Q8HR [facility] Last Admin: 12/22/22 09:33 Dose: 5,000 unit Hydromorphone HCl (Hydromorphone 0.5 Mg/0.5 Ml Syringe) 0.5 mg IVP Q4HR PRN PRN Reason: Pain Last Admin: 12/22/22 13:43 Dose: 0.5 mg Sodium Chloride (Saline 0.9%) 1,000 mls @ 75 mls/hr IV .[id number] [facility] Last Admin: 12/22/22 04:41 Dose: 75 mls/hr Cefazolin Sodium 2 gm/ Sodium (Chloride) 50 mls @ 100 mls/hr IVPB ONCE PRN; Protocol PRN Reason: Pre-Op Stop: 12/22/22 23:00 Levofloxacin 500 mg/ IV (Solution) 100 mls @ 100 mls/hr IVPB Q24H Y[facility] Metronidazole 500 mg/ IV (Solution) 100 mls @ 100 mls/hr IVPB Q8HR [facility]; Protocol Lorazepam (Lorazepam 2 Mg/Ml Inj) 0.5 mg IV Q8HR PRN PRN Reason: Anxiety Last Admin: 12/22/22 09:55 Dose: 0.5 mg Metoclopramide HCl (Metoclopramide 5 Mg/Ml 2 Ml Vial) 10 mg IVP Q6H [facility] Last Admin: 12/22/22 09:33 Dose: 10 mg Naloxone HCl (Naloxone 0.4 Mg/Ml 1 Ml Vial) 0.2 mg IV Q2M PRN PRN Reason: Opioid Reversal Ondansetron HCl (Ondansetron 4 Mg/2 Ml Vial) 4 mg IVP Q6HR [facility] Last Admin: 12/22/22 14:19 Dose: Not Given Pantoprazole Sodium (Pantoprazole 40 Mg/10 Ml Vial) 40 mg IVP DAILY [facility] Last Admin: 12/22/22 09:33 Dose: 40 mg Prochlorperazine Edisylate (Prochlorperazine Inj 10 Mg/2 Ml Vial) 10 mg IVP Q6HR PRN PRN Reason: Nausea And Vomiting Scopolamine (Scopolamine 1 Mg/72 Hr Patch) 1 patch TRANSDERM Q72H [facility] Last Admin: 12/21/22 10:46 Dose: 1 patch Physical exam: Gen: This is a 52-year-old female who is awake, alert and oriented 3, well- developed, well-nourished HEENT: Head is atraumatic, normocephalic. Pupils equal, round. Sclerae is anicteric. NECK: Supple. No JVD. No lymphadenopathy. No thyromegaly. LUNGS: Clear to auscultation. Some bilateral scattered rhonchi noted. No intercostal retractions. HEART: Regular rate and rhythm. No murmur. ABDOMEN: Soft. Tender in the right upper quadrant with positive Celaya sign on palpation. Bowel sounds are sluggish. No masses. EXTREMITIES: No pedal edema. No calf tenderness. NEUROLOGICAL: Patient is awake, alert and oriented x3. Cranial nerves 2 through 12 are grossly intact. Assessment: Abdominal pain mainly across the upper abdomen and also diffuse abdominal pain with mild distention. CT with contrast 12/13/2022 showed no acute process. Possible gastritis/peptic ulcer disease versus other abdominal etiology. Acute acalculous cholecystitis as noted on gallbladder ultrasound Diaphragmatic hiatal hernia without esophagitis with biopsies obtained, on EGD Anxiety Currently some day smoker History of melanoma Recent history of urinary tract infection with E. coli and was treated with Bactrim on 11/30/2022. DVT prophylaxis and GI prophylaxis Full code Plan: Patient will be continued on IV hydration with normal saline and is currently nothing by mouth and scheduled for laparoscopic cholecystectomy with Dr. Roberts sometime today will await surgical report. Patient inquiring of her hiatal hernia and if repair will be done during her cholecystectomy. Instructed the patient to discuss with surgery during preop. Most likely will need to be an outpatient procedure. Patient is nothing by mouth and when surgery okays diet, recommend continuing with home medications Will follow-up with repeat labs in a.m. and continue IV hydration. Encouraged increase activity as tolerated Prognosis is guarded. The impression and plan of care has been dictated by Maday Rodriguez, Nurse Practitioner as directed. Dr. Mick MD I have performed a history and examination and MDM of this patient, discussed the same with the dictator, and agree with the dictator's assessment and plan as written ,documented as a scribe. Based on total visit time, I have performed more than 50% of the visit. Objective - Vital Signs Vital signs: Vital Signs Temp 98.3 F 12/22/22 14:22 Pulse 56 L 12/22/22 14:22 Resp 16 12/22/22 14:22 BP 110/72 12/22/22 14:22 Pulse Ox 96 12/22/22 14:22 FiO2 21 12/22/22 07:25 Intake & Output 12/21/22 12/22/22 12/22/22 18:59 06:59 18:59 Intake Total 50 2000 Output Total 63 Balance -13 1999 Intake: IV 50 Intake, IV Titration 2000 Amount Sodium Chloride 0.9% 2, 2000 000 ml @ 999 mls/hr IV . Q2H1M ONE Rx#:[id number] Output: Post Void Residual 63 Other: Voiding Method Toilet # Voids 1 1 1 - Labs CBC & Chem 7: 12/22/22 05:30 12/22/22 05:30 Labs: Abnormal Lab Results - Last 24 Hours (Table) 12/22/22 12/22/22 Range/Units 05:30 05:30 WBC 11.57 H (4.50-10.00) X 10*3/uL RBC 3.60 L (4.10-5.20) X 10*6/uL Hgb 10.9 L (12.0-15.0) g/dL Hct 35.3 L (37.2-46.3) % MCV 98.1 H (80.0-97.0) fL MCHC 30.9 L (32.0-37.0) g/dL Neutrophils # 8.11 H (1.80-7.70) X 10*3/uL Monocytes # 1.17 H (0.20-1.00) X 10*3/uL Chloride 110 H (96-109) mmol/L BUN 7.9 L (9.0-27.0) mg/dL BUN/Creatinine Ratio 10.10 L (12.00-20.00) Ratio Total Protein 5.3 L (6.2-8.2) g/dL Albumin 3.7 L (3.8-4.9) g/dL
--- NOTE | 2022-12-22 20:33 | P.OP ---
Date of Procedure: 12/22/22 Description of Procedure: SURGEON: AROLDO TERRY MD PREOPERATIVE DIAGNOSES: 1. Abnormal ultrasound for acute acalculous cholecystitis 2. Right upper quadrant abdominal pain 3. Intractable abdominal pain 4. Intractable nausea and vomiting 5. Unintentional weight gain 6. History kidney stone 7. Generalized anxiety disorder 8. Leukocytosis POSTOPERATIVE DIAGNOSES: 1. Acute on chronic cholecystitis 2. Right upper quadrant abdominal pain 3. Intractable abdominal pain 4. Intractable nausea and vomiting 5. Unintentional weight gain 6. History kidney stone 7. Generalized anxiety disorder 8. Peritoneal adhesions, right upper quadrant 9. Diffuse abdominal ascites 10. Hepatomegaly OPERATION: Robotic-assisted da Jon Xi laparoscopic cholecystectomy, multiport with FIREFLY ESTIMATED BLOOD LOSS: 10 mL. SPECIMENS REMOVED: Gallbladder, peritoneal fluid for culture and cell cytology COMPLICATIONS: None. OPERATIVE FINDINGS: 1. Moderate scarring over gallbladder with peritoneal adhesions, pericholecystic with features of chronic cholecystitis 2. Moderate intra-abdominal ascites with culture and cell cytology obtained 3. Hepatomegaly 4. Small bowel without acute pathology 5. Redundant transverse colon to the pelvis INDICATIONS: The patient is a 52-year-old female who presents with intractable right upper quadrant epigastric abdominal pain including abnormal ultrasound for acute acalculous cholecystitis. Robotic assisted laparoscopic approach was bud cribed. Benefits and risks of the procedure including but not limited to bleeding, infection, injury to the biliary tree was described. Informed consent was obtained. DESCRIPTION OF PROCEDURE: Patient was brought to the operating room, placed in supine position. After general induction, the abdomen had been prepped and draped in standard sterile fashion. The robotic da Jon XI system was primed. After a timeout protocol was performed, the patient had been prepped and draped in standard sterile fashion. The patient was injected with indocyanine green. A 5 mm 0 degrees laparoscopic trocar entry was performed along the left upper quadrant. The abdomen insufflated to 15 mmHg pressure which was tolerated well. Diagnostic laparoscopy demonstrated no injury to bowel viscera or mesentery. The liver surface was unremarkable. Next, two 8 mm robotic ports were placed along the right upper abdomen. The camera 8-mm port was maintained along the epigastrium. Another 8 mm port was placed along the left upper abdominal wall after exchanging the 5 mm port. Please note that the ports were placed at least 10 to 15 cm away from the target anatomy of the gallbladder. The robot was docked along the left lateral abdomen. The patient was repositioned in reverse Trendelenburg position. Using a grasper for arm 3, a grasper for arm 4, including hook cautery for arm 1, the robotic system was docked and primed as described. Instruments were interchanged by the insurance account assistant including hook cautery, Bovie cautery and clip appliers. I had sat at the console. The gallbladder was scarred with peritoneal adhesions. Lysis of adhesions was performed to free the gallbladder from the surrounding tissues. Next attention was brought to the infundibulum and cystic structures. The infundibulum and cystic duct were dissected free from surrounding tissues. The cystic duct was isolated. FIREFLY was used to identify the cystic artery and cystic structures. A critical view of safety was obtained. Large PLASTIC clips were used throughout the entire case. Using a clip floor worker, 2 clips were placed at the junction of the infundibulum and cystic duct. The cystic duct was divided between clips. Next, the cystic artery was similarly clipped and cauterized. Electro-Bovie cautery was used to remove the gallbladder from the hepatic fossa. Hemostasis was checked and found to be adequate. Abdominal peritoneal ascites was aspirated for cell cytology and culture. The rest of the abdomen was explored for diagnostic laparoscopy without acute pathology or bowel obstruction. The robot was undocked. I re-scrubbed into the case. Using a 10 mm Endo Catch bag via the left upper quadrant incision, the specimen was removed from the abdominal cavity. Gen mccauley with 0 Vicryl was used to close the left upper quadrant fascia. All pneumoperitoneum instruments were evacuated from the abdominal cavity. The incisions were reapproximated using 4-0 Monocryl in an interrupted subcuticular fashion. Fascial defects were less than 8 mm in size. Please note along the trocar sites, local anesthetic was placed as a field block prior to insertion of all instruments. Liquid glue was applied to the skin. At the end of the procedure needle, sponge, and instrument count had been verified correct by the medical surgical tech. The patient was transferred to postanesthesia care unit in stable condition. Intraoperative films were shared with the patient's family.
[2022-12-22] MEDS ORDERED: ONDANSETRON 4 MG/2 ML VIAL IVP PRN (20:34)
[2022-12-22] MEDS ORDERED: HYDROmorphone 1 MG/ML 1 ML SYRINGE IVP PRN (20:35)
[2022-12-22] MEDS ORDERED: KETOROLAC 15 MG/ML 1 ML VIAL IVP ONE (21:08)
[2022-12-22] MEDS ORDERED: ACETAMINOPHEN IV (For NPO) 1,000 MG/100 ML VIAL IVPB ONE ×2 (21:10→21:13)
[2022-12-22] MEDS ORDERED: HYDROmorphone 0.5 MG/0.5 ML SYRINGE IVP ONE ×2 (21:10→21:15)
[2022-12-22] MEDS ORDERED: SODIUM CHLORIDE 0.9% 1,000 ML IV ONE (21:38)
[2022-12-23] MEDS: metroNIDAZOLE-NS PMX 500 MG in SALINE 1 100ML.BAG IVPB SCH ×2 (00:28→08:43)
[2022-12-23] MEDS: HEPARIN SODIUM,PORCINE/PF 5,000 UNIT/0.5 ML SYRINGE SQ SCH ×2 (00:28→08:43)
[2022-12-23] MEDS: LORazepam 2 MG/ML INJ IV PRN (00:42)
[2022-12-23] MEDS: METOCLOPRAMIDE 5 MG/ML 2 ML VIAL IVP PRN ×2 (00:59→08:43)
[2022-12-23] MEDS: HYDROmorphone 0.5 MG/0.5 ML SYRINGE IVP PRN ×2 (03:21→08:43)
[2022-12-23] MEDS: PANTOPRAZOLE 40 MG/10 ML VIAL IVP SCH (08:42)
[2022-12-23] MEDS: SODIUM CHLORIDE 0.9% 1,000 ML IV SCH (08:44)
[2022-12-23 09:03] VITALS: BP 115/72; PULSE 51; RESP 16; TEMP 98.2
[2022-12-23 09:03] LABS: Basophils # (A) 0.07 X 10*3/uL (0.00-0.10); Basophils % (A) 0.4 %; Eosinophils # (A) 0.04 X 10*3/uL (0.04-0.35); Eosinophils % (A) 0.2 %; HCT 32.8 % (37.2-46.3); HGB 10.2 g/dL (12.0-15.0); Immature Grans, Automated 0.5 %; Lymphocytes # (A) 2.15 X 10*3/uL (0.90-5.00); Lymphocytes % (A) 12.7 %; MCH 30.9 pg (27.0-32.0); MCHC 31.1 g/dL (32.0-37.0); MCV 99.4 fL (80.0-97.0); Mean Platelet Volume 11.5 fL (9.5-12.2); Monocytes % (A) 7.1 %; NRBC Per 100 WBC 0 /100 WBCS (0.0-0.0); Neutrophils # (A) 13.41 X 10*3/uL (1.80-7.70); Neutrophils % (A) 79.1 %; Platelet Count 289 X 10*3/uL (140-440); WBC 16.96 X 10*3/uL (4.50-10.00)
[2022-12-23 09:24] LABS: Magnesium 1.6 mg/dL (1.5-2.4); Phosphorus 3.1 mg/dL (2.4-5.1)
[2022-12-23 09:36] LABS: Albumin 3.5 g/dL (3.8-4.9); Albumin/Globulin Ratio 2.47 (1.60-3.17); Anion Gap 8.4 mmol/L (10.00-18.00); BUN/Creat Ratio 11.45 Ratio (12.00-20.00); Blood Urea Nitrogen 9.3 mg/dL (9.0-27.0); Calcium 8.6 mg/dL (8.7-10.3); Globulin 1.4 g/dL (1.6-3.3); Potassium 4.1 mmol/L (3.5-5.5); Total Bilirubin 0.5 mg/dL (0.30-1.20); Total Protein 4.9 g/dL (6.2-8.2)
--- NOTE | 2022-12-23 11:34 | P.PN ---
Subjective Progress Note Date: 12/23/22 CHIEF COMPLAINT: Abdominal pain HISTORY OF PRESENT ILLNESS: The patient is a 52 year old female status post cholecystectomy for acute cholecystitis. Epigastric abdominal pain is now resolved. Intractable nausea and vomiting is also resolved. He tolerated a liquid diet. Patient purposely avoided regular diet and sternum of recurrent vomiting. Otherwise, clinically much improved. Intraoperative findings of abdominal ascites also reviewed with specimen sent. No reports of fevers or chills. No signs of sepsis. PHYSICAL EXAM: VITALS: Reviewed CONSTITUTIONAL: Well developed and in no acute distress. EYES: Conjuctivae without sclera icterus. Extraocular movements grossly intact. HEAD, EARS, NOSE, THROAT: Moist buccal mucosa. Head is atraumatic, normocephalic. Hears conversational speech. No nasal drainage. RESPIRATORY: Non-labored respirations and equal bilateral excursions. No gross wheezes. CARDIOVASCULAR: Palpable 2+ radial pulses. ABDOMEN: Dressing is clean dry and intact. MUSCULOSKELETAL: Nail and fingers with good capillary refill. No clubbing or cyanosis, SKIN: Warm and well perfused with good skin turgor. NEUROLOGIC: Cranial nerves II through XII grossly intact. No focal or lateralizing signs. PSYCH: Appropriate affect. Alert and oriented to person, place and time. Displays appropriate insight. CLINCAL LABS: Reviewed. LFTs within normal limits. WBC elevated due to expected postsurgical response. ASSESSMENT: 1. Abdominal pain, epigastric and upper abdomen. 2. Unintentional weight gain 3. Bilateral lower abdominal pain/flank pain 4. Personal history of endometrial cancer status post hysterectomy 5. Personal history of melanoma 6. Abdominal gas bloat 7. Acute acalculous cholecystitis 8. Intractable nausea and vomiting due to dehydration PLAN: 1. Stable for discharge from a surgical standpoint. 2. Telehealth follow-up after discharge 3. Low-fat diet upon discharge Objective - Vital Signs Vital signs: Vital Signs Temp 98.2 F 12/23/22 07:00 Pulse 51 L 12/23/22 07:00 Resp 16 12/23/22 07:00 BP 115/72 12/23/22 07:00 Pulse Ox 90 L 12/23/22 07:00 FiO2 21 12/22/22 07:25 Intake & Output 12/22/22 12/23/22 12/23/22 18:59 06:59 18:59 Intake Total 1590 180 Output Total 5 Balance 1585 180 Intake: IV 1250 Intake, IV Titration 340 Amount Sodium Chloride 0.9% 1, 240 000 ml @ 0 mls/hr IV .STK -MED ONE Rx#:[id number] metroNIDAZOLE-NS PMX 500 100 mg In Saline 1 100ml.bag @ 100 mls/hr IVPB Q8HR [facility] Rx#:[id number] Oral 180 Output: Estimated Blood Loss 5 Other: # Voids 1 - Labs CBC & Chem 7: 12/23/22 04:59 12/23/22 04:59 Labs: Abnormal Lab Results - Last 24 Hours (Table) 12/23/22 12/23/22 Range/Units 04:59 04:59 WBC 16.96 H (4.50-10.00) X 10*3/uL RBC 3.30 L (4.10-5.20) X 10*6/uL Hgb 10.2 L (12.0-15.0) g/dL Hct 32.8 L (37.2-46.3) % MCV 99.4 H (80.0-97.0) fL MCHC 31.1 L (32.0-37.0) g/dL Immature Gran # 0.09 H (0.00-0.04) X 10*3/uL Neutrophils # 13.41 H (1.80-7.70) X 10*3/uL Monocytes # 1.20 H (0.20-1.00) X 10*3/uL Sodium 146 H (135-145) mmol/L Chloride 113 H (96-109) mmol/L Anion Gap 8.40 L (10.00-18.00) mmol/L BUN/Creatinine Ratio 11.45 L (12.00-20.00) Ratio Calcium 8.6 L (8.7-10.3) mg/dL Total Protein 4.9 L (6.2-8.2) g/dL Albumin 3.5 L (3.8-4.9) g/dL Globulin 1.4 L (1.6-3.3) g/dL Microbiology - Last 24 Hours (Table) 12/22/22 20:15 Anaerobic Culture - Preliminary Peritoneal Fluid 12/22/22 20:15 Wound Culture - Preliminary Other - Other
--- NOTE | 2022-12-24 03:04 | DS ---
DISCHARGE SUMMARY FINAL DIAGNOSES: 1. Acute cholecystitis, status post cholecystectomy. 2. Anxiety. 3. History of nicotine dependence and multiple medical issues. DISCHARGE DISPOSITION: The patient will be discharged in stable condition with guarded prognosis. HISTORY OF PRESENT ILLNESS: This is a 52-year-old woman with a past medical history of multiple medical problems, admitted with abdominal pain. The patient had features of acute cholecystitis. Dr. Salgado performed a cholecystectomy. The patient improved significantly. The patient discharged home with the following medications and advices. The white count is elevated. Past medical history reviewed. PHYSICAL EXAMINATION: VITAL SIGNS: Stable. CARDIOVASCULAR: S1, S2. ABDOMEN: Soft, minimal tenderness. DISCHARGE MEDICATIONS: Resume the home medications and Levaquin for 5 days and Flagyl 500 mg t.i.d. for 7 days. The rest of medications, recommendations per Surgery. Once again the patient will be discharged in stable condition and guarded prognosis. MMODL / IJN: [id number] /
== END 2022-12-23 13:55 | disposition home or self-care (01) | DRG 418 ==
LOC: EC 11:10 → 6NMEDSUR 13:47 → OBSVTOIN 12-21 12:03
PROVIDERS: ADMIT Hospitalist; ATTEND Hospitalist
PROC: 0DD98ZX Extraction of Duodenum, Via Natural or Artificial Opening Endoscopic, Diagnostic (ICD-10-PCS; 2022-12-21)
PROC: 0DD78ZX Extraction of Stomach, Pylorus, Via Natural or Artificial Opening Endoscopic, Diagnostic (ICD-10-PCS; 2022-12-21)
PROC: BF50200 Other Imaging of Bile Ducts using Fluorescing Agent, Indocyanine Green Dye, Intraoperative (ICD-10-PCS; principal; 2022-12-22 16:50)
PROC: 0FT44ZZ Resection of Gallbladder, Percutaneous Endoscopic Approach (ICD-10-PCS; principal; 2022-12-22 16:50)
PROC: 8E0W4CZ Robotic Assisted Procedure of Trunk Region, Percutaneous Endoscopic Approach (ICD-10-PCS; principal; 2022-12-22 16:50)
DX: K81.2 Acute cholecystitis with chronic cholecystitis (principal); R18.8 Other ascites; R16.0 Hepatomegaly, not elsewhere classified; Z28.310 Unvaccinated for COVID-19; K66.0 Peritoneal adhesions (postprocedural) (postinfection); K21.00 Gastro-esophageal reflux disease with esophagitis, without bleeding; K44.9 Diaphragmatic hernia without obstruction or gangrene; F41.1 Generalized anxiety disorder; E86.0 Dehydration; F17.200 Nicotine dependence, unspecified, uncomplicated; Z79.899 Other long term (current) drug therapy; Z87.440 Personal history of urinary (tract) infections; Z87.442 Personal history of urinary calculi; Z85.820 Personal history of malignant melanoma of skin; Z85.42 Personal history of malignant neoplasm of other parts of uterus; Z88.5 Allergy status to narcotic agent; Z88.0 Allergy status to penicillin; Z88.2 Allergy status to sulfonamides; Z88.8 Allergy status to other drugs, medicaments and biological substances; Z91.030 Bee allergy status
CPT/HCPCS: 36415; 43239; 74018; 76705; 80048; 80053; 81003; 83605; 83690; 83735; 84100; 85025; 85610; 87040; 87070; 87075; 87205; 88108; 88304; 88305; 94760; 96361; 96374; 99284

== ENCOUNTER 2023-03-23 08:56 | Day surgery (SDC) | payer MEDICARE, OTHER ==
[2023-03-20 09:00] VITALS: BMI 25.3
--- NOTE | 2023-03-23 07:08 | P.GSHP ---
History of Present Illness H&P Date: 03/23/23 CHIEF COMPLAINT: Colon screen HISTORY OF PRESENT ILLNESS: The patient is a 52-year-old female who presents for colon screen. Lower endoscopy was offered for further evaluation and management. PAST MEDICAL HISTORY: Please see list. PAST SURGICAL HISTORY: Please see list. MEDICATIONS: Please see list. ALLERGIES: Please see list. SOCIAL HISTORY: No illicit drug use FAMILY HISTORY: No reports of Crohn disease or ulcerative colitis. REVIEW OF ORGAN SYSTEMS: CONSTITUTIONAL: No reports of fevers or chills. PHYSICAL EXAM: VITAL SIGNS: Stable GENERAL: Well-developed pleasant in no acute distress. HEENT: No scleral icterus. Extraocular movements grossly intact. Moist buccal mucosa. NECK: Supple without lymphadenopathy. CHEST: Unlabored respirations. Equal bilateral excursions. CARDIOVASCULAR: Regular rate and rhythm. Distal 2+ pulses. ABDOMEN: Soft, nontender, nondistended. MUSCULOSKELETAL: No clubbing, cyanosis, or edema. ASSESSMENT: 1. Colon screen. PLAN: 1. Recommend proceeding with a lower endoscopy Past Medical History Past Medical History: Cancer Additional Past Medical History / Comment(s): melanoma skin cancer, states recently told she has anemia History of Any Multi-Drug Resistant Organisms: None Reported Past Surgical History: Bladder Surgery, Hysterectomy, Tubal Ligation Additional Past Surgical History / Comment(s): skin cancer removed under anesthesia, bladder suspension, adhesions removed. Past Anesthesia/Blood Transfusion Reactions: Previous Problems w/ Anesthesia, Family History of Problems w/ Anesthesia, Motion Sickness, Postoperative Nausea & Vomiting (PONV) Additional Past Anesthesia/Blood Transfusion Reaction / Comment(s): difficulty waking up- anesthesiologist sat with her in the past. daughter bloodpressure dropped Past Psychological History: Anxiety, Depression Smoking Status: Current every day smoker Past Alcohol Use History: Rare Additional Past Alcohol Use History / Comment(s): smokes 1/2 pack every 2 days., started smoking 16 yrs old. Additional Drug Use History / Comment(s): uses ye lotion that contains thc. - Past Family History Mother Family Medical History: Cancer Additional Family Medical History / Comment(s): liver , pancreatic, lung and brain cancer. Father Family Medical History: Cancer Additional Family Medical History / Comment(s): bladder cancer Medications and Allergies Home Medications Medication Instructions Recorded Confirmed Type ALPRAZolam [Xanax] 0.5 mg PO TID 07/19/17 03/20/23 History Biotin [Exvj-Bkpz-Kdido] 10,000 mcg PO DAILY 03/20/23 03/20/23 History FLUoxetine HCL [Prozac] 40 mg PO HS 03/20/23 03/20/23 History Ibuprofen [Motrin] 800 mg PO Q8H PRN 03/20/23 03/20/23 History Allergies Allergy/AdvReac Type Severity Reaction Status Date / Time bee venom protein (honey bee) Allergy Anaphylaxis Verified 03/20/23 08:41 codeine Allergy Rash/Hives/ Verified 03/20/23 08:41 Nausea loratadine [From Tavist ND] Allergy Rash/Hives Verified 03/20/23 08:41 Penicillins Allergy Anaphylaxis Verified 03/20/23 08:41 sulfamethoxazole Allergy Unknown Verified 03/20/23 08:41 [From Bactrim] trimethoprim [From Bactrim] Allergy Unknown Verified 03/20/23 08:41
[2023-03-23] MEDS ORDERED: LACTATED RINGERS 1,000 ML IV SCH (09:11)
[2023-03-23 09:25] VITALS: TEMP 97.3
[2023-03-23] MEDS ORDERED: PROPOFOL 10 MG/ML 20 ML VIAL IV ONE (10:36)
[2023-03-23 11:00] VITALS: RESP 16
[2023-03-23 11:19] VITALS: BP 115/79; PULSE 60
--- NOTE | 2023-03-23 11:23 | P.PCN ---
Date of Procedure: 03/23/23 Description of Procedure: PREOPERATIVE DIAGNOSIS: Colonoscopy screening POSTOPERATIVE DIAGNOSIS: Tubular adenoma rectum OPERATION: Colonoscopy to the ileocecal valve/cecum/appendiceal orifice Colonoscopy with cold forceps biopsy SURGEON: Shira Salgado MD. ANESTHESIA: MAC. INDICATIONS: The patient is an 52-year-old female who presents for screening colonoscopy. Benefits and risks were described and informed consent was obtained. DESCRIPTION OF PROCEDURE: The patient had undergone Sutab prep. The patient had been brought into the operating room and laid in the left lateral decubitus position. After adequate intravenous sedation, the rectum was examined with 2% lidocaine jelly. No bending machine operator al hemorrhoids were encountered. The rectal tone was within normal limits. No lesions were palpated in the rectal vault. An Olympus colonoscope was advanced highly redundant sigmoid colon to the descending colon. The prep was excellent. No sigmoid diverticulosis was encountered. Colonic polyps were found and removed. No evidence of focal colitis was found. Retroflexion of the scope demonstrated grade 1 internal hemorrhoids without active bleeding or inflammation. The colon was desufflated. The patient had tolerated the procedure well. Withdrawal time was over 6 minutes. FINDINGS: Aronchick preparation quality scale 1 (1-5) Internal hemorrhoids, grade 1 No external hemorrhoids. No arteriovenous malformations. No sigmoid diverticulosis Removal of 1 polyps: - Cold forceps biopsy at rectum, 10 cm from anal verge, 5 mm tubulovillous adenoma No focal colitis. RECOMMENDATIONS: Repeat colonoscopy in 3 years, 2025 Plan - Discharge Summary New Discharge Prescriptions: Continue ALPRAZolam [Xanax] 0.5 mg PO TID Biotin [Avqu-Tflk-Tujqp] 10,000 mcg PO DAILY Ibuprofen [Motrin] 800 mg PO Q8H PRN PRN Reason: Pain FLUoxetine HCL [PROzac] 40 mg PO HS Discharge Medication List ALPRAZolam [Xanax] 0.5 mg PO TID 07/19/17 [History] Biotin [Utjq-Wsyw-Ugtke] 10,000 mcg PO DAILY 03/20/23 [History] FLUoxetine HCL [PROzac] 40 mg PO HS 03/20/23 [History] Ibuprofen [Motrin] 800 mg PO Q8H PRN 03/20/23 [History] Follow up Appointment(s)/Referral(s): Naomi,Shira N, MD [STAFF PHYSICIAN] - As Needed Patient Instructions/Handouts: *Surgery [facility] - (Anesthesia) Discharge Instructions Outpatient Surgery, Colorectal Polyps (GEN), Colonoscopy (GEN) Activity/Diet/Wound Care/Special Instructions: Repeat colonoscopy in 3 years, 2025 Discharge Disposition: HOME SELF-CARE
== END 2023-03-23 11:41 | disposition home or self-care (01) ==
LOC: ORWHC2ENDO 08:56
PROVIDERS: ATTEND Surgery Plastic and Reconstructive Surgery
DX: Z12.11 Encounter for screening for malignant neoplasm of colon (principal); K62.1 Rectal polyp; K64.0 First degree hemorrhoids; D64.9 Anemia, unspecified; K91.0 Vomiting following gastrointestinal surgery; F41.8 Other specified anxiety disorders; F17.210 Nicotine dependence, cigarettes, uncomplicated; F10.90 Alcohol use, unspecified, uncomplicated; F15.90 Other stimulant use, unspecified, uncomplicated; Z85.820 Personal history of malignant melanoma of skin; Z98.51 Tubal ligation status; Z90.710 Acquired absence of both cervix and uterus; Z98.890 Other specified postprocedural states; Z79.899 Other long term (current) drug therapy; Z91.030 Bee allergy status; Z88.0 Allergy status to penicillin; Z88.2 Allergy status to sulfonamides; Z88.1 Allergy status to other antibiotic agents; Z88.5 Allergy status to narcotic agent
CPT/HCPCS: 88305; 45380; J2704

== ENCOUNTER 2023-09-19 11:46 | Day surgery (SDC) | payer MEDICARE, OTHER ==
[~2023-09-19 11:46] MED LIST: HYDROmorphone 0.5 MG/0.5 ML SYRINGE IVP PRN; LACTATED RINGERS 1,000 ML IV SCH; LIDOCAINE 1% (10MG/ML) FOR IV START INTRADERMA PRN; ONDANSETRON 4 MG/2 ML VIAL IVP PRN; Pre Op ABX Message 1 EACH MISC MISCELLANE ONE; droPERidol 5 MG/2 ML VIAL IVP PRN
[2023-09-19] MEDS ORDERED: DEXAMETHASONE SOD PHOSPHATE 4 MG/ML 1 ML VIAL IVP ONE (12:16)
[2023-09-19] MEDS ORDERED: MIDAZOLAM 2 MG/2 ML VIAL ONE (12:56)
[2023-09-19] MEDS ORDERED: HYDROmorphone (PF) 1 MG/ML ONE (12:56)
[2023-09-19] MEDS ORDERED: LIDOCAINE 1% INJ 10MG/ML (20 ML MDV) ONE (12:56)
[2023-09-19] MEDS ORDERED: PROPOFOL 10 MG/ML 20 ML VIAL IV ONE (12:56)
[2023-09-19] MEDS ORDERED: fentaNYL (PF) 50 MCG/ML 2 ML AMP ONE (12:56)
[2023-09-19] MEDS ORDERED: ePHEDrine 50 MG/ML 1 ML VIAL ONE (12:56)
[2023-09-19] MEDS ORDERED: SODIUM CHLORIDE 0.9% 100 ML with ceFAZolin 2,000 MG IV ONE ×2 (13:00)
[2023-09-19] MEDS ORDERED: BUPIVACAINE (PF) 0.25% 30 ML VIAL SQ ONE ×2 (13:00→13:32)
--- NOTE | 2023-09-19 13:41 | P.OP ---
Date of Procedure: 09/19/23 Preoperative Diagnosis: Torn medial meniscus left knee Postoperative Diagnosis: 1. Torn medial meniscus left knee 2. Torn lateral meniscus left knee 3. Loose body 4. Synovitis Procedure(s) Performed: 1. Arthroscopy left knee with partial medial meniscectomy (20% of the meniscus excised) 2. Partial lateral meniscectomy (10% of meniscus excised) 3. Arthroscopic removal of loose body (2 cm x 2 cm) 4. Partial synovectomy the medial femoral, lateral femoral, patellofemoral compartments Anesthesia: GETA Surgeon: Theron Betancur Estimated Blood Loss (ml): 10 Pathology: none sent Condition: stable Disposition: PACU Indications for Procedure: This is a 53-year-old female persona my office with pain in her left knee. An MRI demonstrated torn medial meniscus and after discussing the surgical and nonsurgical treatment options with her at length she wishes to proceed with arthroscopic debridement of her left knee. Informed consent was obtained. Operative Findings: The operative findings are consistent with a tear of the posterior horn of medi al meniscus of the left knee, tear lateral meniscus, loose body, and synovitis Description of Procedure: Patient was seen and evaluated in the preoperative area, the operative site was marked with a skin marker. The patient was then brought to the operating room and given 2 g of Ancef intravenously. A general anesthetic was administered by the anesthesia department. Tourniquet was placed on the right upper thigh and the left lower extremity was then prepped and draped in usual sterile fashion. A universal timeout was then performed confirming the patient's name, surgical site, ALLERGIES, and consent. The limb was then exsanguinated and tourniquet insufflated to 250 mmHg. Standard inferior medial and inferior lateral portals were established in the knee. The trochar was inserted in the inferolateral portal. Examination began at the patellofemoral joint. There was no chondral malacia the patellofemoral compartment and a moderate amount of synovitis. Next the medial compartment was visualized. There was a tear of the posterior horn of the medial meniscus. There was no chondral malacia the mediofemoral compartment and synovitis. The notch area was then visualized and the ACL was intact. There was a large loose body in the notch area which measured approximately 2 cm x 2 cm. The Lateral compartment was then visualized and there was a tear of the lateral horn of the lateral meniscus. There was no evidence of chondromalacia, but a mild amount of synovitis. Next, using an arthroscopic shaver and a biter, partial medial meniscectomy was performed stable margins. Approximately 20% of the meniscus was excised. a partial lateral meniscectomy was also performed with approximately 10% of the lateral meniscus excised. The loose body was removed arthroscopically. A partial synovectomy is performed the medial femoral, lateral femoral, patellofemoral compartments. Knee was then copiously irrigated, instruments removed, incisions were closed with 4-0 nylon. 30 mL of quarter percent plain Marcaine was injected sterilely into the surgical area. A sterile dressing was then applied, and the tourniquet was released. Patient was then transferred to recovery room in stable condition.condition.
[2023-09-19 13:59] VITALS: TEMP 97
[2023-09-19] MEDS ORDERED: HYDROmorphone 0.5 MG/0.5 ML SYRINGE IVP ONE (14:38)
[2023-09-19] MEDS ORDERED: LACTATED RINGERS 1,000 ML IV ONE (14:58)
[2023-09-19 15:21] VITALS: RESP 16
[2023-09-19 15:41] VITALS: BP 111/65; PULSE 51
== END 2023-09-19 15:45 | disposition home or self-care (01) ==
LOC: OR 11:46
PROVIDERS: ATTEND Orthopaedic Surgery
DX: S83.242A Other tear of medial meniscus, current injury, left knee, initial encounter (principal); F32.A Depression, unspecified; M23.42 Loose body in knee, left knee; M65.862 Other synovitis and tenosynovitis, left lower leg; K21.9 Gastro-esophageal reflux disease without esophagitis; F17.210 Nicotine dependence, cigarettes, uncomplicated; Z79.899 Other long term (current) drug therapy; Z88.0 Allergy status to penicillin; Z88.5 Allergy status to narcotic agent; Z88.2 Allergy status to sulfonamides; Z90.710 Acquired absence of both cervix and uterus; Z90.49 Acquired absence of other specified parts of digestive tract; Z98.890 Other specified postprocedural states; Z83.3 Family history of diabetes mellitus; X58.XXXA Exposure to other specified factors, initial encounter
CPT/HCPCS: 29880; J2250; J1100; J2405; J0690; J2001; J3010; J1170 ×2; J2704; J0665

== ENCOUNTER → 2024-01-08 | Outpatient (CLI) | payer MEDICARE, OTHER ==
[2024-01-08 11:00] LABS: Basophils % (A) 1.2 %; Eosinophils # (A) 0.08 X 10*3/uL (0.04-0.35); HCT 42.7 % (37.2-46.3); HGB 13.6 g/dL (12.0-15.0); Lymphocytes # (A) 1.98 X 10*3/uL (0.90-5.00); Lymphocytes % (A) 24.6 %; MCH 30.6 pg (27.0-32.0); MCHC 31.9 g/dL (32.0-37.0); Mean Platelet Volume 10.9 FL (9.5-12.2); Monocytes # (A) 0.74 X 10*3/uL (0.20-1.00); Monocytes % (A) 9.2 %; NRBC Per 100 WBC 0 X 10*3/uL (0.00-0.01); Neutrophils # (A) 5.11 X 10*3/uL (1.80-7.70); Neutrophils % (A) 63.6 %; Platelet Count 314 X 10*3/uL (140-440); RBC 4.45 X 10*6/uL (4.10-5.20); WBC 8.04 X 10*3/uL (4.50-10.00)
[2024-01-08 11:20] LABS: ALT 15 U/L (8-44); AST 16 U/L (13-35); Albumin 4.8 g/dL (3.8-4.9); Albumin/Globulin Ratio 2.18 Ratio (1.60-3.17); Alkaline Phosphatase 88 U/L (41-126); BUN/Creat Ratio 21.75 Ratio (12.00-20.00); Blood Urea Nitrogen 17.4 mg/dL (9.0-27.0); Calcium 10.1 mg/dL (8.7-10.3); Carbon Dioxide 26.1 mmol/L (21.6-31.8); Chloride 104 mmol/L (96-109); Chol/HDL Ratio 2.33 Ratio; Globulin 2.2 g/dL (1.6-3.3); Glucose 93 mg/dL (70-110); LDL Cholesterol,Calculated 83.6 mg/dL (0.0-131.0); Potassium 4.8 mmol/L (3.5-5.5); Sodium 142 mmol/L (135-145); Total Bilirubin 0.2 mg/dL (0.3-1.2); VLDL Calculation 11.84 mg/dL (5.00-40.00)
[2024-01-08 13:41] LABS: HIV 2 AB Non-Reactive (Non-Reactive); HIV AB P24 Non-Reactive (Non-Reactive); HIV P24 AG Non-Reactive (Non-Reactive)
== END | disposition home or self-care (01) ==
LOC: LABWHC1 07:53
PROVIDERS: ATTEND Family Medicine
DX: Z11.4 Encounter for screening for human immunodeficiency virus [HIV] (principal); E78.5 Hyperlipidemia, unspecified
CPT/HCPCS: 36415; 80053; 80061; 84443; 85025; 87390

== ENCOUNTER 2025-06-05 09:50 | Observation (INO) | payer MEDICARE, OTHER ==
[2025-06-05] MEDS: ASPIRIN 81 MG PO STA (10:23)
[2025-06-05 10:28] LABS: Basophils # (A) 0.11 10*3/uL (0.00-0.10); Basophils % (A) 1.2 %; Eosinophils # (A) 0.04 10*3/uL (0.04-0.35); Eosinophils % (A) 0.4 %; HCT 42.4 % (37.2-46.3); HGB 14.4 g/dL (12.0-15.0); Lymphocytes # (A) 1.90 10*3/uL (0.90-5.00); Lymphocytes % (A) 20.9 %; MCH 31.2 pg (27.0-32.0); MCHC 34.0 g/dL (32.0-37.0); MCV 92.0 fL (80.0-97.0); Monocytes # (A) 0.80 10*3/uL (0.20-1.00); Monocytes % (A) 8.8 %; Neutrophils # (A) 6.19 10*3/uL (1.80-7.70); Neutrophils % (A) 68.4 %; Platelet Count 342 10*3/uL (140-440); RBC 4.61 10*6/uL (4.10-5.20); RDW 12.8 % (11.5-14.5); WBC 9.07 10*3/uL (4.50-10.00)
[2025-06-05 10:50] LABS: ALT 18 U/L (4-34); AST 24 U/L (14-36); African American GFR (CKD) >90 (>60 ml/min/1.73 sqM); Albumin 4.9 g/dL (3.5-5.0); Alkaline Phosphatase 93 U/L (38-126); Anion Gap 11 mmol/L; Blood Urea Nitrogen 12 mg/dL (7-17); Calcium 9.7 mg/dL (8.4-10.2); Carbon Dioxide 23 mmol/L (22-30); Chloride 106 mmol/L (98-107); Glucose 102 mg/dL (74-99); Magnesium 1.7 mg/dL (1.6-2.3); Non-African American GFR(CKD) >90 (>60 ml/min/1.73 sqM); Potassium 4.1 mmol/L (3.5-5.1); Sodium 140 mmol/L (137-145); Total Protein 7.4 g/dL (6.3-8.2)
--- NOTE | 2025-06-05 10:55 | XR ---
EXAMINATION TYPE: XR chest 2V DATE OF EXAM: 06/05/2025 10:30 AM COMPARISON: Chest radiographs from 01/10/2018 TECHNIQUE: XR chest 2V Frontal and lateral views of the chest. CLINICAL INDICATION:Female, 55 years old with history of Chest Pain; FINDINGS: Lungs/Pleura: There is no evidence of pleural effusion, focal consolidation, or pneumothorax. Pulmonary vascularity: Unremarkable. Heart/mediastinum: Cardiomediastinal silhouette is unremarkable. Musculoskeletal: No acute osseous pathology. IMPRESSION: No acute cardiopulmonary disease/process. [facility], , 06/05/2025 10:53 AM
[2025-06-05 11:24] LABS: INR 1.0 (<1.2); Partial Thromboplastin Time 24.4 sec (22.0-30.0); Prothrombin Time 10.7 sec (10.0-12.5)
[2025-06-05] MEDS ORDERED: NITROGLYCERIN SL TABS 0.4 MG TAB SUBLINGUAL PRN (12:05)
--- NOTE | 2025-06-05 12:30 | ED ---
Chest Pain HPI - General Chief Complaint: Chest Pain Stated Complaint: Chest pain Time Seen by Provider: 06/05/25 09:59 Source: patient, RN notes reviewed Mode of arrival: ambulatory Limitations: no limitations - History of Present Illness Initial Comments: 55-year-old female presents emergency department from Dr. Anderson's office for evaluation of chest pain. Patient states has been having worsening chest pain dyspnea with exertion. Patient states she does not have any prior cardiac disease. Patient states symptoms worsened and was placed into here for evaluation. Patient denies any fevers or chills patient does have mild shortness of breath. - Related Data Home Medications Medication Instructions Recorded Confirmed ALPRAZolam [Xanax] 0.5 mg PO QID 07/19/17 06/05/25 Ibuprofen [Motrin] 800 mg PO Q8H PRN 03/20/23 06/05/25 Cyanocobalamin [Vitamin B-12 1,000 mcg SQ QMONTHLY 06/05/25 06/05/25 Injection] DULoxetine HCL [Cymbalta] 60 mg PO DAILY 06/05/25 06/05/25 EPINEPHrine (Auto Inject) [Epipen] 0.3 mg IM ONCE PRN 06/05/25 06/05/25 Varenicline [Chantix Continuing 1 mg PO BID 06/05/25 06/05/25 Pack] Allergies Allergy/AdvReac Type Severity Reaction Status Date / Time bee venom protein (honey bee) Allergy Anaphylaxis Verified 06/05/25 11:21 codeine Allergy Rash/Hives/ Verified 06/05/25 11:21 Nausea loratadine [From Tavist ND] Allergy Rash/Hives Verified 06/05/25 11:21 oxycodone Allergy Rash/Hives Verified 06/05/25 11:21 Penicillins Allergy Anaphylaxis Verified 06/05/25 11:21 sulfamethoxazole Allergy Unknown Verified 06/05/25 11:21 [From Bactrim] trimethoprim [From Bactrim] Allergy Unknown Verified 06/05/25 11:21 Review of Systems ROS Statement: Those systems with pertinent positive or pertinent negative responses have been documented in the HPI. ROS Other: All systems not noted in ROS Statement are negative. EKG Findings - EKG Comments: EKG Findings:: EKG performed at 10: 03 sinus bradycardia rate of 55 VA 170 QRS 92 QT/QTc 412/401 - EKG Results: EKG: interpreted by LEROY Past Medical History Past Medical History: Cancer, GERD/Reflux Additional Past Medical History / Comment(s): melanoma skin cancer History of Any Multi-Drug Resistant Organisms: None Reported Past Surgical History: Bladder Surgery, Cholecystectomy, Hysterectomy, Tubal Ligation Additional Past Surgical History / Comment(s): skin cancer removed under anesthesia, bladder suspension, adhesions removed. Past Anesthesia/Blood Transfusion Reactions: Previous Problems w/ Anesthesia, Family History of Problems w/ Anesthesia, Motion Sickness, Postoperative Nausea & Vomiting (PONV) Additional Past Anesthesia/Blood Transfusion Reaction / Comment(s): difficulty waking up- anesthesiologist sat with her in the past. daughter bloodpressure dropped Past Psychological History: Anxiety, Depression Smoking Status: Current some day smoker Past Alcohol Use History: None Reported Past Drug Use History: Marijuana - Past Family History Mother Family Medical History: Cancer Additional Family Medical History / Comment(s): liver , pancreatic, lung and brain cancer. Father Family Medical History: Cancer Additional Family Medical History / Comment(s): bladder cancer General Exam Limitations: no limitations Course Vital Signs 06/05/25 06/05/25 09:53 13:08 Temperature 97.9 F 97.8 F Pulse Rate 62 51 L Respiratory 18 16 Rate Blood Pressure 131/85 123/79 O2 Sat by Pulse 98 97 Oximetry Chest Pain MDM - MDM Was pt. sent in by a medical professional or institution (, PA, REINFORCING METAL WORKER, urgent care, hospital, or assisted...) When possible be specific @ -PCP Did you speak to anyone other than the patient for history (EMS, parent, family, police, friend...)? What history was obtained from this source @ -No Did you review nursing and triage notes (agree or disagree)? Why? @ -I reviewed and agree with nursing and triage notes Were old charts reviewed (outside hosp., previous admission, EMS record, old EKG, old radiological studies, urgent care reports/EKG's, assisted records)? Report findings @ -No old charts were reviewed Differential Diagnosis (chest pain, altered mental status, abdominal pain women, abdominal pain men, vaginal bleeding, weakness, fever, dyspnea, syncope, headache, dizziness, GI bleed, back pain, seizure, CVA, palpatations, mental health, musculoskeletal)? @ -Differential Chest Pain: Stable Angina, Unstable Angina, STEMI, NSTEMI Aortic Dissection, Pneumothorax, Musculoskeletal, Esophageal Spasm GERD, Cholecystitis, Pancreatitis, Zoster, this is not meant to be an all-inclusive list. EKG interpreted by me (3pts min.). @ -As above X-rays interpreted by me (1pt min.). @ -Chest x-ray shows no acute cardiopulmonary process CT interpreted by me (1pt min.). @ -None done U/S interpreted by me (1pt. min.). @ -None done What testing was considered but not performed or refused? (CT, X-rays, U/S, labs)? Why? @ -None What meds were considered but not given or refused? Why? @ -None Did you discuss the management of the patient with other professionals (professionals i.e. , PA, REINFORCING METAL WORKER, lab, RT, psych nurse, social service worker, infantry senior sergeant, teacher, business enterprise officer, telephonic nurse case manager)? Give summary @ -EMH for admission Was smoking cessation discussed for >3mins.? @ -No Was critical care preformed (if so, how long)? @ -No Were there social determinants of health that impacted care today? How? (Homelessness, low income, unemployed, alcoholism, drug addiction, transportation, low edu. Level, literacy, decrease access to med. care, usp, rehab)? @ -No Was there de-escalation of care discussed even if they declined (Discuss DNR or withdrawal of care, Hospice)? DNR status @ -No What co-morbidities impacted this encounter? (DM, HTN, Smoking, COPD, CAD, Cancer, CVA, ARF, Chemo, Hep., AIDS, mental health diagnosis, sleep apnea, morbid obesity)? @ -None Was patient admitted / discharged? Hospital course, mention meds given and route, prescriptions, significant lab abnormalities, going to OR and other pertinent info. @ -M patient presented with complaint of chest pain sent over from PCPs office. Initial troponin, EKG and chest x-ray unremarkable. Patient admitted for cardiac rule out. Undiagnosed new problem with uncertain prognosis? @ -No Drug Therapy requiring intensive monitoring for toxicity (Heparin, Nitro, Insulin, Cardizem)? @ -No Were any procedures done? @ -No Diagnosis/symptom? @ -Chest pain Acute, or Chronic, or Acute on Chronic? @ -Acute Uncomplicated (without systemic symptoms) or Complicated (systemic symptoms)? @ -Complicated Side effects of treatment? @ -No Exacerbation, Progression, or Severe Exacerbation? @ -No Poses a threat to life or bodily function? How? (Chest pain, [place], OR, pneumonia, PE, COPD, DKA, ARF, appy, cholecystitis, CVA, Diverticulitis, Homicidal, Suicidal, threat to staff... and all critical care pts) @ -[Yes risk cardiac function Disposition Clinical Impression: Chest pain Disposition: ADMITTED IP TO THIS HOSP Condition: Fair Time of Disposition: 12:30
[2025-06-05] MEDS: LORazepam 1 MG TAB PO STA (13:26)
[2025-06-05] MEDS ORDERED: CYANOCOBALAMIN 1,000 MCG/ML 1 ML VIAL SQ SCH (19:30)
--- NOTE | 2025-06-05 19:33 | P.HPIM ---
History of Present Illness This is a pleasant 55 years old female who presents because of chest pain for 1 week Chest pain is 7/10 in severity when she came in now improved down to 2/10 In her left side of the chest going to the middle. [place] like squeezing feeling with no obvious precipitating or relieving factors Has little shortness of breath no coughing This is also associated with left arm numbness She denies specific GI/ symptoms no headache dizziness weakness numbness She is quit smoking about 9 months ago although sometimes she smokes sporadic ally. She is using Chantix no alcohol and used THC as she describes. She is afebrile Labs were unremarkable including CBC BMP LFT INR troponin was negative. Heart rate 4053 and 51 D-dimer -0.24. Chest x-ray showed no acute cardiopulmonary process. EKG showing sinus bradycardia with no significant ST-T changes. Heart rate is 55 Review of Systems Review of systems CONSTITUTIONAL: No fever, no malaise, no fatigue. HEENT: No recent visual problems or hearing problems. Denied any sore throat. CARDIOVASCULAR: No orthopnea, PND, no palpitations, no syncope. PULMONARY: No shortness of breath, no cough, no hemoptysis. GASTROINTESTINAL: No diarrhea, no nausea, no vomiting, no abdominal pain. Normoactive bowel sounds. NEUROLOGICAL: No headaches, no weakness, no numbness. HEMATOLOGICAL: Denies any bleeding or petechiae. GENITOURINARY: Denies any burning micturition, frequency, or urgency. MUSCULOSKELETAL/RHEUMATOLOGICAL: Denies any joint pain, swelling, or any muscle pain. ENDOCRINE: Denies any polyuria or polydipsia. Past Medical History Past Medical History: Cancer, GERD/Reflux Additional Past Medical History / Comment(s): melanoma skin cancer History of Any Multi-Drug Resistant Organisms: None Reported Past Surgical History: Bladder Surgery, Cholecystectomy, Hysterectomy, Tubal Ligation Additional Past Surgical History / Comment(s): skin cancer removed under anesthesia, bladder suspension, adhesions removed. Past Anesthesia/Blood Transfusion Reactions: Previous Problems w/ Anesthesia, Family History of Problems w/ Anesthesia, Motion Sickness, Postoperative Nausea & Vomiting (PONV) Additional Past Anesthesia/Blood Transfusion Reaction / Comment(s): difficulty waking up- anesthesiologist sat with her in the past. daughter bloodpressure dropped Past Psychological History: Anxiety, Depression Smoking Status: Current some day smoker Past Alcohol Use History: None Reported Past Drug Use History: Marijuana - Past Family History Mother Family Medical History: Cancer Additional Family Medical History / Comment(s): liver , pancreatic, lung and brain cancer. Father Family Medical History: Cancer Additional Family Medical History / Comment(s): bladder cancer Medications and Allergies Home Medications Medication Instructions Recorded Confirmed Type ALPRAZolam [Xanax] 0.5 mg PO QID 07/19/17 06/05/25 History Ibuprofen [Motrin] 800 mg PO Q8H PRN 03/20/23 06/05/25 History Cyanocobalamin [Vitamin B-12 1,000 mcg SQ QMONTHLY 06/05/25 06/05/25 History Injection] DULoxetine HCL [Cymbalta] 60 mg PO DAILY 06/05/25 06/05/25 History EPINEPHrine (Auto Inject) [Epipen] 0.3 mg IM ONCE PRN 06/05/25 06/05/25 History Varenicline [Chantix Continuing 1 mg PO BID 06/05/25 06/05/25 History Pack] Allergies Allergy/AdvReac Type Severity Reaction Status Date / Time bee venom protein (honey bee) Allergy Anaphylaxis Verified 06/05/25 11:21 codeine Allergy Rash/Hives/ Verified 06/05/25 11:21 Nausea loratadine [From Tavist ND] Allergy Rash/Hives Verified 06/05/25 11:21 oxycodone Allergy Rash/Hives Verified 06/05/25 11:21 Penicillins Allergy Anaphylaxis Verified 06/05/25 11:21 sulfamethoxazole Allergy Unknown Verified 06/05/25 11:21 [From Bactrim] trimethoprim [From Bactrim] Allergy Unknown Verified 06/05/25 11:21 Physical Exam Vitals: Vital Signs Temp Pulse Pulse Resp BP Pulse Ox 06/05/25 17:54 98.2 F 51 L 18 98 06/05/25 15:10 43 L 18 110/68 98 06/05/25 13:08 97.8 F 51 L 16 123/79 97 06/05/25 10:13 55 L 06/05/25 09:53 97.9 F 62 18 131/85 98 Intake and Output 06/05/25 06/05/25 06/05/25 06:59 14:59 22:59 Other: Weight 69.4 kg GENERAL: The patient is alert and oriented x3, not in any acute distress. Well developed, well nourished. HEENT: Pupils are round and equally reacting to light. EOMI. No scleral icterus. No conjunctival pallor. Normocephalic, atraumatic. No pharyngeal erythema. No thyromegaly. CARDIOVASCULAR: S1 and S2 present. No murmurs, rubs, or gallops. PULMONARY: Chest is clear to auscultation, no wheezing , no crackles. ABDOMEN: Soft, nontender, nondistended, normoactive bowel sounds. No palpable organomegaly. MUSCULOSKELETAL: No joint swelling or deformity. EXTREMITIES: No cyanosis, clubbing, or pedal edema. NEUROLOGICAL: Gross neurological examination did not reveal any focal deficits. SKIN: No rashes. no petechiae. Results CBC & Chem 7: 06/05/25 10:23 06/05/25 10:23 Labs: Abnormal Lab Results - Last 24 Hours (Table) 06/05/25 06/05/25 Range/Units 10:23 10:23 Basophils # 0.11 H (0.00-0.10) 10*3/uL Glucose 102 H (74-99) mg/dL Assessment and Plan Assessment: Chest pain, rule out cardiac causes Gastroesophageal reflux disease History of melanoma Anxiety depression, not active issue Substance abuse with cannabis Plan: Continue with aspirin 325 mg at emergency room Cardiology team consult Labs and medication were reviewed.. Continue same treatment. Continue with symptomatic treatment. Resume home medication. Monitor labs and vitals. DVT and GI prophylaxis. Further recommendations as per clinical course of the patient DVT prophylaxis: Subcutaneous heparin GI Prophylaxis: Pepcid PT/OT: Pending Prognosis is guarded
[2025-06-05] MEDS: HEPARIN SODIUM,PORCINE 5,000 UNIT/ML 1 ML VIAL SQ SCH (22:01)
[2025-06-05] MEDS: VARENICLINE 1 MG TAB PO SCH (22:47)
[2025-06-05] MEDS: FAMOTIDINE 20 MG/2 ML VIAL IV SCH (23:04)
[2025-06-06] MEDS ORDERED: DOBUTamine DRIP for NUC MED 500 MG in DEXTROSE/WATER 1 250ML.BAG IV PRN (08:56)
[2025-06-06 09:17] LABS: Cholesterol 134.00 mg/dL (0.00-200.00); HDL Cholesterol 57.30 mg/dL (40.00-60.00); LDL Cholesterol,Calculated 63.1 mg/dL (0.0-131.0); Triglycerides 67.80 mg/dL (0.00-149.00); VLDL Calculation 13.56 mg/dL (5.00-40.00)
[2025-06-06] MEDS: ASPIRIN 325 MG TAB PO SCH (09:44)
[2025-06-06] MEDS: DULoxetine HCL 60 MG CAPSULE.DR PO SCH (09:45)
--- NOTE | 2025-06-06 11:34 | P.CRDCN ---
History of Present Illness Consult date: 06/06/25 Consult reason: chest pain History of present illness: This is a 55-year-old female with past medical history of GERD. We have been asked to evaluate the patient for chest pain. Patient initially presented to Dr. Anderson's office for evaluation of chest pain and dyspnea with exertion. She had an EKG that showed new Q waves and thus she was sent over to the hospital for evaluation. Upon review of old EKGs from 2017 and 2022, Q waves were present at that time. Patient gives history that she was holding her grandson as a and just came home from the hospital 2 days ago and she felt a strong beat in her chest that was strong enough that it made the baby move. Then she felt her heart rate was slow and she continued to feel each beat. She states 2 weeks ago she had an episode where she felt her heart move and then she had a thumping for a few beats and it was slow. She denies any fast heartbeats. She states she did have some nausea and diaphoresis at the time. She states the strong beats are there most of the time. Patient concerned that is related to stress that she is raising 3 grandchildren. Blood pressure 123/79, heart rate 51, pulse ox 97% on room air. Dr. Frankel reviewed in detail the findings of the EKGs and that LA has been ruled out. She is agreeable to undergo stress test today looking for arrhythmia. -EKG: Sinus rhythm with no acute ST-T wave changes, Q waves in V1 V2, poor R wave progression -Chest x-ray: No acute process. -Laboratory studies: CBC, D-dimer, CMP unremarkable except for glucose 102. Troponin negative x 1. Magnesium 1.7. -Home cardiac medications: None. Noted on Chantix pack. Review Of Systems: At the time of my exam: CONSTITUTIONAL: Denies fever or chills. HEENT: Denies blurred vision, vision changes, or eye pain. Denies hemoptysis CARDIOVASCULAR: Denies chest pain. Denies orthopnea. Denies PND. Reports palpitations RESPIRATORY: Denies shortness of breath. GASTROINTESTINAL: Denies abdominal pain. Denies nausea or vomiting. HEMATOLOGIC: Denies bleeding disorders. GENITOURINARY: Denies any blood in urine. SKIN: Denies puritis. Denies rash. Physical examination: Gen: This is a 55-year-old female in no acute distress VS: reviewed HEENT: Head is atraumatic, normocephalic. Pupils equal, round. Sclerae is anicteric. NECK: Supple. No JVD. LUNGS: Clear to auscultation. No wheezes or rhonchi. No intercostal retractions. HEART: Regular rate and rhythm. No murmur. ABDOMEN: Soft No tenderness. EXTREMITIES: No pedal edema. No calf tenderness. NEUROLOGICAL: Patient is awake, alert and oriented x3. Assessment: Atypical chest pain, acute coronary syndrome ruled out Abnormal EKG Palpitations GERD Plan: Schedule patient for dobutamine stress echocardiogram and attempt to arrhythmia/palpitations Obtain 2-D echocardiogram and Doppler study to assess cardiac structure and function If stress test is unremarkable, patient is cleared for discharge and will fo llow-up with Dr. Frankel in the office in 1 week Thank you kindly for this consultation. Nurse practitioner note has been reviewed, I agree with documented findings and plan of care. Patient was seen and examined. Past Medical History Past Medical History: Cancer Additional Past Medical History / Comment(s): melanoma skin cancer History of Any Multi-Drug Resistant Organisms: None Reported Past Surgical History: Bladder Surgery, Cholecystectomy, Hysterectomy, Tubal Ligation Additional Past Surgical History / Comment(s): skin cancer removed under anesthe lindsay, bladder suspension, adhesions removed. Past Anesthesia/Blood Transfusion Reactions: Previous Problems w/ Anesthesia, Family History of Problems w/ Anesthesia, Motion Sickness, Postoperative Nausea & Vomiting (PONV) Additional Past Anesthesia/Blood Transfusion Reaction / Comment(s): difficulty waking up- anesthesiologist sat with her in the past. daughter bloodpressure dropped Past Psychological History: Anxiety, Depression, Panic Disorder, PTSD Smoking Status: Former smoker Past Alcohol Use History: None Reported Additional Past Alcohol Use History / Comment(s): smokes 1/2 pack pd., started smoking 16 yrs old. Past Drug Use History: Marijuana Additional Drug Use History / Comment(s): uses ye lotion that contains thc., gummies - Past Family History Mother Family Medical History: Cancer Additional Family Medical History / Comment(s): liver , pancreatic, lung and brain cancer. Father Family Medical History: Cancer Additional Family Medical History / Comment(s): bladder cancer Medications and Allergies Home Medications Medication Instructions Recorded Confirmed Type ALPRAZolam [Xanax] 0.5 mg PO QID 07/19/17 06/05/25 History Ibuprofen [Motrin] 800 mg PO Q8H PRN 03/20/23 06/05/25 History Cyanocobalamin [Vitamin B-12 1,000 mcg SQ QMONTHLY 06/05/25 06/05/25 History Injection] DULoxetine HCL [Cymbalta] 60 mg PO DAILY 06/05/25 06/05/25 History EPINEPHrine (Auto Inject) [Epipen] 0.3 mg IM ONCE PRN 06/05/25 06/05/25 History Varenicline [Chantix Continuing 1 mg PO BID 06/05/25 06/05/25 History Pack] Allergies Allergy/AdvReac Type Severity Reaction Status Date / Time bee venom protein (honey bee) Allergy Anaphylaxis Verified 06/05/25 11:21 codeine Allergy Rash/Hives/ Verified 06/05/25 11:21 Nausea loratadine [From Tavist ND] Allergy Rash/Hives Verified 06/05/25 11:21 oxycodone Allergy Rash/Hives Verified 06/05/25 11:21 Penicillins Allergy Anaphylaxis Verified 06/05/25 11:21 sulfamethoxazole Allergy Unknown Verified 06/05/25 11:21 [From Bactrim] trimethoprim [From Bactrim] Allergy Unknown Verified 06/05/25 11:21 Physical Exam Vitals: Vital Signs Temp Pulse Pulse Pulse Resp BP BP 06/06/25 07:00 98.1 F 51 L 16 115/74 06/06/25 03:48 46 L 06/06/25 02:23 98.2 F 56 L 16 112/77 06/05/25 22:09 77 06/05/25 21:10 98.1 F 53 L 16 148/68 06/05/25 20:36 49 L 17 134/81 06/05/25 17:54 98.2 F 51 L 18 06/05/25 15:10 43 L 18 110/68 06/05/25 13:08 97.8 F 51 L 16 123/79 06/05/25 10:13 55 L 06/05/25 09:53 97.9 F 62 18 131/85 Pulse Ox 06/06/25 07:00 97 06/06/25 03:48 06/06/25 02:23 96 06/05/25 22:09 06/05/25 21:10 99 06/05/25 20:36 97 06/05/25 17:54 98 06/05/25 15:10 98 06/05/25 13:08 97 06/05/25 10:13 06/05/25 09:53 98 Intake and Output 06/05/25 06/06/25 06/06/25 22:59 06:59 14:59 Other: Voiding Method Toilet # Voids 1 Weight 69.4 kg Results 06/05/25 10:23 06/05/25 10:23 Cardiac Enzymes 06/05/25 06/05/25 06/05/25 Range/Units 10:23 10:23 13:09 AST 24 (14-36) U/L Troponin I <0.012 <0.012 (0.000-0.034) ng/mL 06/05/25 Range/Units 16:45 AST (14-36) U/L Troponin I <0.012 (0.000-0.034) ng/mL Coagulation 06/05/25 Range/Units 10:23 PT 10.7 (10.0-12.5) sec APTT 24.4 (22.0-30.0) sec CBC 06/05/25 Range/Units 10:23 WBC 9.07 (4.50-10.00) 10*3/uL RBC 4.61 (4.10-5.20) 10*6/uL Hgb 14.4 (12.0-15.0) g/dL Hct 42.4 (37.2-46.3) % Plt Count 342 (140-440) 10*3/uL Comprehensive Metabolic Panel 06/05/25 Range/Units 10:23 Sodium 140 (137-145) mmol/L Potassium 4.1 (3.5-5.1) mmol/L Chloride 106 (98-107) mmol/L Carbon Dioxide 23 (22-30) mmol/L BUN 12 (7-17) mg/dL Creatinine 0.63 (0.52-1.04) mg/dL Glucose 102 H (74-99) mg/dL Calcium 9.7 (8.4-10.2) mg/dL AST 24 (14-36) U/L ALT 18 (4-34) U/L Alkaline Phosphatase 93 (38-126) U/L Total Protein 7.4 (6.3-8.2) g/dL Albumin 4.9 (3.5-5.0) g/dL Current Medications Generic Name Dose Route Start Last Admin Trade Name Freq PRN Reason Stop Dose Admin Alprazolam 0.5 mg 06/05/25 19:19 Alprazolam 0.5 Mg Tab PO QID PRN Anxiety Aspirin 325 mg 06/06/25 09:00 Aspirin 325 Mg Tab PO DAILY [facility] Duloxetine HCl 60 mg 06/06/25 09:00 Duloxetine Hcl 60 Mg Capsule.Dr PO DAILY [facility] Famotidine 20 mg 06/05/25 21:00 06/05/25 23:04 Famotidine 20 Mg/2 Ml Vial IV Not Given Q12HR [facility] Heparin Sodium (Porcine) 5,000 unit 06/05/25 21:00 06/05/25 22:01 Heparin Sodium,Porcine 5,000 Unit/Ml 1 Ml Vial SQ 5,000 unit Q12HR YARELY Administration Nitroglycerin 0.4 mg 06/05/25 12:05 Nitroglycerin Sl Tabs 0.4 Mg Tab SUBLINGUAL Q5M PRN Chest Pain Varenicline 1 mg 06/05/25 21:00 06/05/25 22:47 Varenicline 1 Mg Tab PO 1 mg BID YARELY Administration Intake and Output 06/05/25 06/06/25 06/06/25 22:59 06:59 14:59 Other: Voiding Method Toilet # Voids 1 Weight 69.4 kg 06/05/25 10:23 06/05/25 10:23
--- NOTE | 2025-06-06 11:34 | CA ---
Transthoracic Echo Report Name: Elen Jordan Age: 55 Gender: F : 1970 Exam Date: 06/05/2025 13:36 Exam Location: [place] [facility] Ht (in): 63 Wt (lb): 153 Ordering Physician: Theron Pastor Attending/Referring Phys: [id number], Dawit Sleeve Presser Operator Sara Keys, TITUS Procedure CPT: Indications: Chest Pain Cardiac Hx: Technical Quality: Good Contrast 1: Total Dose (mL): Contrast 2: Total Dose (mL): MEASUREMENTS (Male / Female) Normal Values 2D ECHO LV Diastolic Diameter PLAX 3.5 cm 4.2 - 5.9 / 3.9 - 5.3 cm LV Systolic Diameter PLAX 2.4 cm IVS Diastolic Thickness 0.9 cm 0.6 - 1.0 / 0.6 - 0.9 cm LVPW Diastolic Thickness 1.1 cm 0.6 - 1.0 / 0.6 - 0.9 cm LV Relative Wall Thickness 0.6 RV Internal Dim ED PLAX 3.1 cm LA Systolic Diameter LX 2.6 cm 3.0 - 4.0 / 2.7 - 3.8 cm LV Diastolic Volume MOD 4C 80.8 cm??? LV Systolic Volume MOD 4C 28.8 cm??? LV Ejection Fraction MOD 4C 64.3 % LV Cardiac Index MOD 4C 1726.7 cm???/min???m??? LV Diastolic Length 4C 7.9 cm LV Systolic Length 4C 6.0 cm LV Diastolic Volume MOD 2C 68.7 cm??? LV Systolic Volume MOD 2C 19.4 cm??? LV Ejection Fraction MOD 2C 71.8 % LV Cardiac Index MOD 2C 1640.3 cm???/min???m??? LV Diastolic Length 2C 8.3 cm LV Systolic Length 2C 6.3 cm M-MODE Aortic Root Diameter MM 2.7 cm LA Systolic Diameter MM 2.1 cm LA Ao Ratio MM 0.8 DOPPLER AV Peak Velocity 151.7 cm/s AV Peak Gradient 9.2 mmHg Mitral E Point Velocity 82.1 cm/s Mitral A Point Velocity 86.9 cm/s Mitral E to A Ratio 0.9 MV Deceleration Time 241.8 ms MV E' Velocity 7.9 cm/s Mitral E to MV E' Ratio 10.4 TR Peak Velocity 211.2 cm/s TR Peak Gradient 17.8 mmHg FINDINGS Left Ventricle Left ventricular ejection fraction is estimated at 55-60 %. Small left ventricular cavity. Mildly increased posterior wall thickness. Normal left ventricular wall motion. Right Ventricle Normal right ventricular size. Right ventricular systolic pressure within normal limits. Right Atrium Normal right atrial size. No right atrial thrombus or mass seen. Left Atrium Normal left atrial size. No left atrial thrombus or mass present. Mitral Valve Structurally normal mitral valve. No mitral stenosis, regurgitation or prolapse. Aortic Valve Trileaflet aortic valve. No aortic valve stenosis or regurgitation. Tricuspid Valve Structurally normal tricuspid valve. Mild tricuspid regurgitation. Pulmonic Valve Structurally normal pulmonic valve. No pulmonic regurgitation. Pericardium No pericardial effusion. Aorta Normal size aortic root and proximal ascending aorta. CONCLUSIONS Reason: Chest pain Normal LV size and function Prominent posterior pericardial stripe/thickened pericardium without effusion Previewed by: Dr. Darrion Frankel MD (Electronically Signed) Final Date: 06 June 2025 11:33
[2025-06-06] MEDS: ALPRAZolam 0.5 MG TAB PO PRN (17:19)
--- NOTE | 2025-06-06 18:56 | CA ---
Dobutamine Stress Echocardiogram Report Elen Jordan Age: 55 Gender: F : 1970 Exam Date: 06/06/2025 11:59 Exam Location: [facility] Ordering Physician: Myrna Mcginnis Referring Physician: Ras FRAGA Technical Sales Engineer: MIKAYLA, Technologist: Ht (in): 63 Wt (lb): 153 Procedure CPT: Indication: Arrhythmia, trying to provoke PVCs ICD-9 Codes: Rhythm: Patient History: CP, FLORINDA, PALP, PAST MA, QUIT TOB 7 MONTHS AGO. Cardiac Medications: SEE CHART,,,,, Medications in past 24 hours: Contrast: Total Dose (mL): Stress Results Protocol: Peak Dose (???g/kg/min): Duration (min:sec): Atropine:(mg) Target HR: 139 Double Product: Resting HR: 64 Resting BP: 143 / 82 Peak HR: 150 Peak BP: 131 / 73 Max Predicted HR: 163 92 % Max Predicted HR Stress Summary: BP Response: Reason for Termination: Target HR Cardiac Symptoms: NO SYMPTOMS ECG Analysis Resting EKG: Stress EKG: Arrhythmia: Echo Analysis Base Echo Analysis: Low Echo Anaylsis: Peak Echo Analysis: Recovery Echo: MEASUREMENTS (Male/Female) Normal Values CONCLUSIONS Reason: Chest discomfort shortness of breath palpitations No ECG or echocardiographic evidence for ischemia during dobutamine infusion Dr. Darrion Frankel MD (Electronically Signed) Final Date: 06 June 2025 18:55
[2025-06-06] MEDS: FAMOTIDINE 20 MG TAB PO SCH (20:14)
[2025-06-06 20:16] VITALS: BP 132/84; PULSE 64; RESP 18; TEMP 98.2
--- NOTE | 2025-06-06 21:04 | P.DS ---
Providers Date of admission: 06/05/25 12:32 Attending physician: Hipolito Bajwa MD Consults: 06/05/25 12:05 Consult Physician Urgent Consulting Provider: Ki Cotter Consult Reason/Comments: Chest pain, bradycardia Do you want consulting provider notified?: Yes Primary care physician: Fabio Anderson [facility] Course: Diagnoses: Chest pain, musculoskeletal. cardiac causes ruled out with negative stress test. D-dimer negative Gastroesophageal reflux disease History of melanoma Anxiety depression, not active issue [facility] course: This is a pleasant 55 years old female who presents because of chest pain for 1 week Chest pain is 7/10 in severity when she came in now improved down to 2/10 in the emergency room. Later on her chest pain completely resolved. She had negative D-dimer at 0.24. Patient eval by curriculum and assessment coordinator and she underwent dobutamine stress echo test showing no EKG changes or evidence for ischemia After patient finished the test I got a call from bedside nurse during the group director stating patient's wants to be discharged Patient was cleared for discharge by curriculum and assessment coordinator Problems and management plan were discussed with the patient and he verbalized understanding and acceptance Patient was found stable and can be discharged home in guarded prognosis however he needs follow-up as an outpatient. Patient was instructed to follow up with PCP within one week and patient agrees Patient was instructed to follow-up with curriculum and assessment coordinator as instructed in the discharge instructions Physical exam Gen: patient is a AAOx3, no distress CVS: S1-S2, RRR, no murmur Lungs: B/L CTA, no wheezing Abdomen: soft, no distention, no tenderness, positive bowel sounds Extremity: no leg edema or induration Time spent more than 35 minutes Patient Condition at Discharge: Fair Plan - Discharge Summary Discharge Rx Participant: No New Discharge Prescriptions: New Famotidine [Pepcid] 20 mg PO BID 7 Days #14 tab Continue ALPRAZolam [Xanax] 0.5 mg PO QID EPINEPHrine (Auto Inject) [Epipen] 0.3 mg IM ONCE PRN PRN Reason: Anaphylaxis Cyanocobalamin [Vitamin B-12 Injection] 1,000 mcg SQ QMONTHLY Varenicline [Chantix Continuing Pack] 1 mg PO BID DULoxetine HCL [Cymbalta] 60 mg PO DAILY Discontinued Ibuprofen [Motrin] 800 mg PO Q8H PRN PRN Reason: Pain Discharge Medication List ALPRAZolam [Xanax] 0.5 mg PO QID 07/19/17 [History] Cyanocobalamin [Vitamin B-12 Injection] 1,000 mcg SQ QMONTHLY 06/05/25 [History] DULoxetine HCL [Cymbalta] 60 mg PO DAILY 06/05/25 [History] EPINEPHrine (Auto Inject) [Epipen] 0.3 mg IM ONCE PRN 06/05/25 [History] Varenicline [Chantix Continuing Pack] 1 mg PO BID 06/05/25 [History] Famotidine [Pepcid] 20 mg PO BID 7 Days #14 tab 06/06/25 [Rx] Follow up Appointment(s)/Referral(s): Fabio Anderson MD [Primary Care Provider] - 1-2 days Darrion Frankel MD [STAFF PHYSICIAN] - 1 Week Activity/Diet/Wound Care/Special Instructions: heart healthy diet activity is restricted till you see your doctor Discharge Disposition: HOME SELF-CARE
== END 2025-06-06 21:19 | disposition home or self-care (01) ==
LOC: EC 09:50 → 6NMEDSUR 12:32
PROVIDERS: ADMIT Internal Medicine; ATTEND Internal Medicine
DX: R07.89 Other chest pain (principal); K21.9 Gastro-esophageal reflux disease without esophagitis; R00.2 Palpitations; R00.1 Bradycardia, unspecified; R94.31 Abnormal electrocardiogram [ECG] [EKG]; R61 Generalized hyperhidrosis; R11.0 Nausea; F32.A Depression, unspecified; F41.9 Anxiety disorder, unspecified; F12.10 Cannabis abuse, uncomplicated; F17.210 Nicotine dependence, cigarettes, uncomplicated; R20.0 Anesthesia of skin; Z79.899 Other long term (current) drug therapy; Z88.0 Allergy status to penicillin; Z88.1 Allergy status to other antibiotic agents; Z88.2 Allergy status to sulfonamides; Z88.5 Allergy status to narcotic agent; Z91.030 Bee allergy status; Z85.820 Personal history of malignant melanoma of skin
CPT/HCPCS: 96372 ×2; 99285; 36415; 93005; 93306; 93351; 85379; 80061; 80053; 84443; 83735; 84484; 85025; 85610; 85730; 83036; 71046; G0378 ×2; J1644 ×2